=== PATIENT | male | born 1950 | race Caucasian/White ===

== ENCOUNTER → 2020-03-19 11:55 | Outpatient (BNVA) | payer MEDICARE, SELFPAY | PROVIDERS: PCP Internal Medicine; Referring Provider Internal Medicine; Visit Provider Dietitian, Registered | DX: Z76.89 Persons encountering health services in other specified circumstances (principal) ==

== ENCOUNTER 2020-04-16 11:36 | Outpatient (REF) | payer MEDICARE, SELFPAY ==
[2020-04-16 12:38] LABS: MANUAL DIFF FLAG NO
[2020-04-16 12:40] LABS: Basophils Percent Auto 0.4 % (0-2); Eosinophils Absolute Auto 0.2 X10*3/uL (0.0-0.4); Eosinophils Percent Auto 4.5 % (0-4); Hematocrit 41.3 % (42-52); Hemoglobin 13.7 g/dl (14.0-18.0); Imm Gran Abs Auto 0.02 X10*3/uL (0.00-0.03); Imm Gran Pct Auto 0.4 % (0.0-0.4); Lymphocytes Absolute Auto 1.4 X10*3/uL (1.2-4.9); Lymphocytes Percent Auto 26.8 % (20-40); Mean Corpuscular HGB Conc 33.2 g/dl (31.0-36.0); Mean Corpuscular Hemoglobin 32.6 pg (27.0-33.0); Mean Corpuscular Volume 98.3 fL (80-98); Mean Platelet Volume 10.7 fL (9.4-12.4); Monocytes Absolute Auto 0.4 X10*3/uL (0.1-1.2); Monocytes Percent Auto 7.8 % (2-11); Neutrophils Absolute Auto 3.2 X10*3/uL (2.0-8.3); Neutrophils Percent Auto 60.1 % (45-73); Platelet Count 225 X10*3/uL (160-400); Red Cell Distribution Width 12.9 % (11.0-16.0); Retic HGB Equivalent 36.3 pg (30.0-35.0); Reticulocyte Percent 3.5 % (0.5-1.8); Reticulocytes Absolute 0.145 X10*6/uL (0.026-0.095); White Blood Count 5.4 X10*3/uL (4.8-10.8)
[2020-04-16 13:09] LABS: Alanine Aminotransferase 39 U/L (0-40); Albumin Level 4.4 g/dL (3.5-5.0); Alkaline Phosphatase 101 U/L (39-117); Anion Gap 12 (12-20); Aspartate Amino Transferase 28 U/L (5-37); Bilirubin Total 0.7 mg/dL (0.0-1.0); Blood Urea Nitrogen 22 mg/dL (9-16); Calcium 9.2 mg/dL (8.4-10.2); Carbon Dioxide 27 mmol/L (22-29); Chloride 103 mmol/L (96-108); Cholesterol 161 mg/dL; Estimated Glomerular Filt Rate > 60; Glucose Fasting 99 mg/dL (60-99); HDL Cholesterol 50 mg/dL; Iron 140 mcg/dL (45-160); LDL Cholesterol Calculated 89 mg/dl; Percent Iron Saturation 43 % (15-50); Potassium 4.6 mmol/l (3.3-5.1); Sodium 137 mmol/L (135-145); Total Iron Binding Capacity 328 mcg/dL (228-428); Total Protein 6.9 g/dL (6.5-8.0); Triglycerides 111 mg/dL; Unsaturated Iron Binding 188 ug/dL
[2020-04-16 13:31] LABS: Ferritin 166 ng/mL (20-250); T4 Thyroxine 8.8 ug/dL (4.5-12.0); Thyroid Stimulating Hormone 2.04 uIU/mL (0.32-4.0)
[2020-04-16 16:02] LABS: Folate > 20.0 ng/mL (> or = 4.0); Vitamin B12 625 pg/mL (200-900)
== END 2020-04-16 11:37 | disposition home or self-care (01) ==
LOC: HO.LAB 11:36
PROVIDERS: PCP Internal Medicine; Visit Provider Internal Medicine
DX: F31.9 Bipolar disorder, unspecified (principal); I10 Essential (primary) hypertension; K59.00 Constipation, unspecified; E03.9 Hypothyroidism, unspecified; E78.00 Pure hypercholesterolemia, unspecified; K21.9 Gastro-esophageal reflux disease without esophagitis; D50.9 Iron deficiency anemia, unspecified; I25.10 Atherosclerotic heart disease of native coronary artery without angina pectoris
CPT/HCPCS: 36415; 80053; 80061; 82607; 82728; 82746; 83540; 84436; 84443; 85025; 85045

== ENCOUNTER → 2020-05-28 11:26 | Outpatient (BNVA) | payer MEDICARE, SELFPAY | PROVIDERS: PCP Internal Medicine; Visit Provider Dietitian, Registered ==

== ENCOUNTER → 2020-08-27 14:03 | Outpatient (BNVA) | payer MEDICARE, SELFPAY | PROVIDERS: PCP Internal Medicine; Visit Provider Dietitian, Registered | DX: R73.02 Impaired glucose tolerance (oral) (principal) | CPT/HCPCS: 97803 ==

== ENCOUNTER 2020-10-09 12:45 | Outpatient (REF) | payer MEDICARE, SELFPAY ==
[2020-10-09 14:17] LABS: Alanine Aminotransferase 28 U/L (0-40); Albumin Level 4.4 g/dL (3.5-5.0); Alkaline Phosphatase 106 U/L (39-117); Anion Gap 12 (12-20); Aspartate Amino Transferase 23 U/L (5-37); Bilirubin Total 0.8 mg/dL (0.0-1.0); Blood Urea Nitrogen 18 mg/dL (9-16); Calcium 9.4 mg/dL (8.4-10.2); Carbon Dioxide 28 mmol/L (22-29); Chloride 105 mmol/L (96-108); Cholesterol 151 mg/dL; Estimated Glomerular Filt Rate > 60; Glucose Random 101 mg/dL (60-115); HDL Cholesterol 49 mg/dL; LDL Cholesterol Calculated 84 mg/dl; Potassium 4.8 mmol/L (3.3-5.1); Sodium 140 mmol/L (135-145); Total Protein 6.8 g/dL (6.5-8.0); Triglycerides 93 mg/dL
== END 2020-10-09 12:46 | disposition home or self-care (01) ==
LOC: HO.LAB 12:45
PROVIDERS: PCP Internal Medicine; Visit Provider Internal Medicine
DX: E78.00 Pure hypercholesterolemia, unspecified (principal)
CPT/HCPCS: 36415; 80053; 80061

== ENCOUNTER 2021-01-06 13:52 | Outpatient (REF) | payer MEDICARE, SELFPAY ==
[2021-01-06 15:23] LABS: Estimated Average Glucose 97 mg/dL
[2021-01-06 15:27] LABS: Alanine Aminotransferase 30 U/L (0-40); Albumin Level 4.6 g/dL (3.5-5.0); Alkaline Phosphatase 118 U/L (39-117); Anion Gap 13 (12-20); Aspartate Amino Transferase 21 U/L (5-37); Bilirubin Total 1.3 mg/dL (0.0-1.0); Blood Urea Nitrogen 17 mg/dL (9-16); Calcium 9.9 mg/dL (8.4-10.2); Carbon Dioxide 26 mmol/L (22-29); Chloride 106 mmol/L (96-108); Cholesterol 150 mg/dL; Estimated Glomerular Filt Rate > 60; Glucose Random 110 mg/dL (60-115); HDL Cholesterol 60 mg/dL; LDL Cholesterol Calculated 67 mg/dl; Potassium 5.2 mmol/L (3.3-5.1); Sodium 140 mmol/L (135-145); Triglycerides 118 mg/dL
[2021-01-06 15:49] LABS: Free T4 (Free Thyroxine) 1.73 ng/dL (0.71-1.85); Thyroid Stimulating Hormone 0.55 uIU/mL (0.32-4.0)
== END 2021-01-06 13:53 | disposition home or self-care (01) ==
LOC: HO.LAB 13:52
PROVIDERS: PCP Internal Medicine; Visit Provider Internal Medicine
DX: E78.00 Pure hypercholesterolemia, unspecified (principal); E03.9 Hypothyroidism, unspecified; R73.02 Impaired glucose tolerance (oral)
CPT/HCPCS: 36415; 80053; 80061; 83036; 84439; 84443

== ENCOUNTER → 2021-01-27 12:56 | Outpatient (BNVA) | payer MEDICARE, SELFPAY | PROVIDERS: PCP Internal Medicine; Visit Provider Dietitian, Registered | DX: R73.02 Impaired glucose tolerance (oral) (principal) | CPT/HCPCS: 97803 ==

== ENCOUNTER 2021-02-11 12:34 | Outpatient (REF) | payer MEDICARE, SELFPAY ==
--- NOTE | ~2021-02-11 | CT_ITS ---
EXAMINATION: CT CHEST SCREENING CLINICAL INFORMATION: Former smoker. 1-2 pack per day history for 57 years. Quit 14 years ago. COMPARISON: Previous chest CT scans most recent November 2019 TECHNIQUE: Multidetector volumetric CT imaging of the chest is performed without contrast using low dose technique. Additional 2-D coronal and sagittal reformatted images and axial 3-D maximum intensity projection (MIP) images are generated on the CT workstation. This CT examination was performed using dose optimization techniques as appropriate, variously including the following: *Automated exposure control *Adjustment of mA and/or kV according to patient size (this includes techniques or standardized protocols for targeted exams where dose is matched to indication/reason for exam; i.e. extremities or head) *Use of iterative reconstruction technique DLP: 68 mGy-cm FINDINGS: LUNGS: There is mild biapical pleural and parenchymal scarring. There is evidence of mild emphysema. There is a heterogeneous or semisolid left upper lobe nodule that measures 3 mm axial image 109 series 5 that is stable. There is a 2 mm left upper lobe nodule axial image 120 series 5 that is stable. There is a 2 mm calcified right lower lobe nodule axial image 305 series 5 that is stable. There are 2 small adjacent right lower lobe nodules measuring 2 and 3 mm axial image 336 series 5 that are stable. There is a 3 mm left lower lobe nodule axial image 355 series 5 that is stable. There is a 4 mm left lower lobe nodule axial image 387 series 5 that is stable. There are clustered peribronchial nodules in the left lower lobe with tree-in-bud appearance. The largest measures 5 x 8 mm axial image 428 series 5. This appears unchanged from most recent exam, however, is gradually increasing in size compared to older exams, for example measuring 4 x 7 mm axial image 424 series 4 on September 2017 exam and 3 x 4 mm on earliest exam September 2015 axial image 440 series 4. There is a branching tubular-shaped nodule in the right lower lobe. This is difficult to measure but probably represents a dilated inspissated bronchus. This measures maximum 6 x 10 mm axial image 359 series 5, 9 mm in transverse dimension coronal reconstructed image 38 and 5 x 10 mm in longitudinal and AP dimension sagittal reconstructed image 91. This is increased from most recent exam November 2019 and is new from earlier exams. There are additional smaller adjacent more peripheral nodules measuring 2 mm or tree-in-bud appearance. MEDIASTINUM: The heart does not appear enlarged. There is a trace pericardial effusion that is stable. There is mild coronary artery calcification. There are no enlarged hilar or mediastinal lymph nodes. The thoracic aorta is normal in caliber. The visualized thyroid gland is normal. PLEURA: There is no pleural effusion. No pleural mass or thickening. AXILLA: No lymphadenopathy. UPPER ABDOMEN: There is diverticulosis of the colon. OSSEOUS STRUCTURES: There are degenerative changes of the spine. CT/CT lung screening IMPRESSION: Emphysema. Gradually increasing tree-in-bud nodules in the left lower lobe and tubular branching structure in the right lower lobe probably representing bronchial soft tissue opacification. Other small pulmonary nodules are stable. Mild coronary artery calcification. Stable trace pericardial effusion. ASSESSMENT: Lung-RADS category 3: Probably Benign. RECOMMENDATION: Six-month low-dose chest CT followup recommended.
== END 2021-02-11 12:35 | disposition home or self-care (01) ==
LOC: HO.CT 12:34
PROVIDERS: PCP Internal Medicine; Visit Provider Physician Assistant Medical
DX: Z87.891 Personal history of nicotine dependence (principal)
CPT/HCPCS: 71271

== ENCOUNTER 2021-06-03 12:44 | Outpatient (REF) | payer MEDICARE, SELFPAY ==
--- NOTE | ~2021-06-03 | XR_ITS ---
EXAMINATION: XR chest 2V CLINICAL INFORMATION: Reason for Exam J40 - Bronchitis, not specified as acute or chronic COMPARISON: CT chest lung cancer screening 02/11/2021 TECHNIQUE: 2 views of the chest XR/XR chest 2V FINDINGS/IMPRESSION: Mild peribronchial cuffing which could be seen in the setting of small airways inflammation such as asthma or bronchitis. No focal consolidation. No pneumothorax. No pleural effusion. Normal cardiomediastinal silhouette.
[2021-06-03 13:30] LABS: MANUAL DIFF FLAG NO
[2021-06-03 14:20] LABS: Basophils Percent Auto 0.5 % (0-2); Eosinophils Absolute Auto 0.3 X10*3/uL (0.0-0.4); Eosinophils Percent Auto 3.6 % (0-4); Hematocrit 39.4 % (42.0-52.0); Hemoglobin 12.7 g/dl (14.0-18.0); Imm Gran Abs Auto 0.03 X10*3/uL (0.00-0.03); Imm Gran Pct Auto 0.4 % (0.0-0.4); Lymphocytes Absolute Auto 1.6 X10*3/uL (1.2-4.9); Lymphocytes Percent Auto 21.2 % (20-40); Mean Corpuscular HGB Conc 32.2 g/dl (31.0-36.0); Mean Corpuscular Hemoglobin 31.4 pg (27.0-33.0); Mean Corpuscular Volume 97.3 fL (80.0-98.0); Monocytes Absolute Auto 0.6 X10*3/uL (0.1-1.2); Monocytes Percent Auto 7.9 % (2-11); Neutrophils Percent Auto 66.4 % (45-73); Platelet Count 248 X10*3/uL (160-400); Red Blood Count 4.05 X10*6/uL (4.60-5.80); Red Cell Distribution Width 14.2 % (11.0-16.0); White Blood Count 7.5 X10*3/uL (4.8-10.8)
[2021-06-03 14:52] LABS: Alanine Aminotransferase 22 U/L (0-40); Albumin Level 4.1 g/dL (3.5-5.0); Alkaline Phosphatase 128 U/L (39-117); Anion Gap 13 (12-20); Aspartate Amino Transferase 16 U/L (5-37); Bilirubin Total 0.9 mg/dL (0.0-1.0); Blood Urea Nitrogen 15 mg/dL (9-16); Calcium 9.8 mg/dL (8.4-10.2); Carbon Dioxide 28 mmol/L (22-29); Chloride 102 mmol/L (96-108); Cholesterol 118 mg/dL; Estimated Glomerular Filt Rate > 60; Glucose Fasting 102 mg/dL (60-99); HDL Cholesterol 40 mg/dL; LDL Cholesterol Calculated 62 mg/dl; Potassium 4.8 mmol/L (3.3-5.1); Sodium 138 mmol/L (135-145); Total Protein 7.3 g/dL (6.5-8.0); Triglycerides 84 mg/dL
[2021-06-03 15:13] LABS: TSH reflex Free T4 0.62 uIU/mL (0.32-4.0)
== END 2021-06-03 12:45 | disposition home or self-care (01) ==
LOC: HO.XRAY 12:44
PROVIDERS: PCP Internal Medicine; Visit Provider Internal Medicine
DX: J40 Bronchitis, not specified as acute or chronic (principal); E03.9 Hypothyroidism, unspecified; E78.00 Pure hypercholesterolemia, unspecified; I10 Essential (primary) hypertension
CPT/HCPCS: 36415; 71046; 80053; 80061; 84443; 85025

== ENCOUNTER → 2021-07-07 14:41 | Outpatient (BNVA) | payer MEDICARE, SELFPAY | PROVIDERS: PCP Internal Medicine; Visit Provider Internal Medicine | DX: R05.3 Chronic cough (principal); R91.1 Solitary pulmonary nodule; J30.9 Allergic rhinitis, unspecified | CPT/HCPCS: 99202 ==

== ENCOUNTER → 2021-07-27 12:57 | Outpatient (BNVA) | payer OTHER, SELFPAY | PROVIDERS: PCP Internal Medicine; Visit Provider Dietitian, Registered | DX: R73.02 Impaired glucose tolerance (oral) (principal) | CPT/HCPCS: 97803 ==

== ENCOUNTER 2021-08-04 14:01 | Outpatient (REF) | payer OTHER, SELFPAY ==
--- NOTE | 2021-08-04 16:22 | PFT_ITS ---
Forced vital capacity is 87%, FEV1 71%, FEV1/FVC ratio is 60. [id number] 36%, and MVV is 71%. Post bronchodilator therapy, there is a moderate improvement in MHD45-51 and only borderline improvement in FEV1. Total lung capacity 98%. Residual volume 121%, which is slightly increased. Diffusion capacity 42%. CONCLUSION: Moderately severe obstructive airway disorder. Minimal improvement after bronchodilator therapy is noted. Clinical correlation recommended. MD SHARONA Hinkle/MODL / [id number]
== END 2021-08-04 14:02 | disposition home or self-care (01) ==
LOC: HO.RESP 14:01
PROVIDERS: PCP Internal Medicine; Visit Provider Internal Medicine
DX: R05.3 Chronic cough (principal)
CPT/HCPCS: 94060; 94727; 94729

== ENCOUNTER → 2021-08-11 13:49 | Outpatient (BNVA) | payer MEDICARE, SELFPAY | PROVIDERS: PCP Internal Medicine; Visit Provider Internal Medicine | DX: J44.9 Chronic obstructive pulmonary disease, unspecified (principal); R05.3 Chronic cough; J30.9 Allergic rhinitis, unspecified; R91.1 Solitary pulmonary nodule; Z87.891 Personal history of nicotine dependence | CPT/HCPCS: 99212 ==

== ENCOUNTER 2021-10-13 14:34 | Outpatient (REF) | payer OTHER, SELFPAY ==
--- NOTE | ~2021-10-13 | CT_ITS ---
EXAMINATION: CT CHEST SCREENING CLINICAL INFORMATION: Former smoker. Quit 14 years ago. 80 pack-year history. COMPARISON: Previous chest CT scans most recent January 2021 and chest x-ray May 2021. TECHNIQUE: Multidetector volumetric CT imaging of the chest is performed without contrast using low dose technique. Additional 2D coronal and sagittal reformatted images and axial 3D maximum intensity projection (MIP) images are generated on the CT workstation. This CT examination was performed using dose optimization techniques as appropriate, variously including the following: *Automated exposure control *Adjustment of mA and/or kV according to patient size (this includes techniques or standardized protocols for targeted exams where dose is matched to indication/reason for exam; i.e. extremities or head) *Use of iterative reconstruction technique DLP: 76 mGy-cm FINDINGS: LUNGS: There is biapical pleural and parenchymal scarring. There is evidence of emphysema. Small pulmonary nodules or micronodules are stable. Areas of airways disease in both lower lobes with clustered small peribronchial nodules and increased peribronchial attenuation are stable. Areas of mucus plugging in the right lower lobe for example axial image 365 series 5 and in the left lower lobe axial image 433 series 5 appears stable. No tracheal lesion. MEDIASTINUM: Mild coronary artery calcification. The mediastinum is otherwise normal. PLEURA: There is no pleural effusion. No pleural mass or thickening. AXILLA: No lymphadenopathy. UPPER ABDOMEN: Unremarkable. OSSEOUS STRUCTURES: There are degenerative changes of the spine. CT/CT lung screen follow up IMPRESSION: Emphysema. Stable pulmonary nodules and areas of airways disease and plugging in the bilateral lower lobes. ASSESSMENT: Lung-RADS category 2: Benign. RECOMMENDATION: Annual low-dose chest CT followup recommended.
== END 2021-10-13 14:35 | disposition home or self-care (01) ==
LOC: HO.CT 14:34
PROVIDERS: PCP Internal Medicine; Visit Provider Physician Assistant Medical
DX: Z12.2 Encounter for screening for malignant neoplasm of respiratory organs (principal); Z87.891 Personal history of nicotine dependence; J44.9 Chronic obstructive pulmonary disease, unspecified; R05.3 Chronic cough; R91.1 Solitary pulmonary nodule; J30.9 Allergic rhinitis, unspecified
CPT/HCPCS: 71250; 99212

== ENCOUNTER 2021-11-05 14:18 | Outpatient (REF) | payer OTHER, SELFPAY ==
[2021-11-05 14:35] LABS: MANUAL DIFF FLAG NO
[2021-11-05 14:48] LABS: Basophils Percent Auto 0.5 % (0-2); Eosinophils Absolute Auto 0.4 X10*3/uL (0.0-0.4); Eosinophils Percent Auto 6.9 % (0-4); Hematocrit 39.9 % (42.0-52.0); Hemoglobin 13.2 g/dl (14.0-18.0); Imm Gran Abs Auto 0.02 X10*3/uL (0.00-0.03); Imm Gran Pct Auto 0.4 % (0.0-0.4); Immature Retic Fraction 19.1 % (2.3-13.4); Lymphocytes Absolute Auto 1.8 X10*3/uL (1.2-4.9); Lymphocytes Percent Auto 30.8 % (20-40); Mean Corpuscular HGB Conc 33.1 g/dl (31.0-36.0); Mean Corpuscular Hemoglobin 31.9 pg (27.0-33.0); Mean Corpuscular Volume 96.4 fL (80.0-98.0); Mean Platelet Volume 9.9 fL (9.4-12.4); Monocytes Absolute Auto 0.4 X10*3/uL (0.1-1.2); Monocytes Percent Auto 7.6 % (2-11); Neutrophils Absolute Auto 3.1 x10*3/uL (2.0-8.3); Neutrophils Percent Auto 53.8 % (45-73); Platelet Count 191 X10*3/uL (160-400); Red Blood Count 4.14 X10*6/uL (4.60-5.80); Red Cell Distribution Width 14.3 % (11.0-16.0); Retic HGB Equivalent 35.9 pg (30.0-35.0); Reticulocyte Percent 2.7 % (0.5-1.8); Reticulocytes Absolute 0.111 X10*6/uL (0.026-0.095); White Blood Count 5.7 X10*3/uL (4.8-10.8)
[2021-11-05 14:59] LABS: Estimated Average Glucose 108 mg/dL; Hemoglobin A1c % 5.4 %
[2021-11-05 15:12] LABS: Alanine Aminotransferase 38 U/L (0-40); Albumin Level 4.5 g/dL (3.5-5.0); Alkaline Phosphatase 97 U/L (39-117); Anion Gap 11 (12-20); Aspartate Amino Transferase 27 U/L (5-37); Bilirubin Total 0.9 mg/dL (0.0-1.0); Blood Urea Nitrogen 20 mg/dL (9-16); Calcium 9.4 mg/dL (8.4-10.2); Carbon Dioxide 29 mmol/L (22-29); Chloride 105 mmol/L (96-108); Estimated Glomerular Filt Rate > 60; Glucose Random 98 mg/dL (60-115); Iron 109 mcg/dL (45-160); Percent Iron Saturation 34 % (15-50); Sodium 140 mmol/L (135-145); Total Iron Binding Capacity 316 mcg/dL (228-428); Total Protein 7.3 g/dL (6.5-8.0); Unsaturated Iron Binding 207 ug/dL
[2021-11-05 15:37] LABS: Ferritin 296 ng/mL (20-250); Free T4 (Free Thyroxine) 1.13 ng/dL (0.71-1.85); Thyroid Stimulating Hormone 2.86 uIU/mL (0.32-4.0)
[2021-11-05 18:37] LABS: Vitamin B12 527 pg/mL (200-900)
[2021-11-06 10:48] LABS: Folate > 20.0 ng/mL (> or = 4.0)
== END 2021-11-05 14:19 | disposition home or self-care (01) ==
LOC: HO.LAB 14:18
PROVIDERS: PCP Internal Medicine; Visit Provider Internal Medicine
DX: E03.9 Hypothyroidism, unspecified (principal); D64.9 Anemia, unspecified
CPT/HCPCS: 36415; 80053; 82607; 82728; 82746; 83036; 83540; 84439; 84443; 85025; 85045

== ENCOUNTER 2022-03-15 14:24 | Outpatient (REF) | payer OTHER, SELFPAY ==
[2022-03-15 14:38] LABS: MANUAL DIFF FLAG NO
[2022-03-15 15:02] LABS: Basophils Percent Auto 0.3 % (0-2); Eosinophils Absolute Auto 0.2 X10*3/uL (0.0-0.4); Eosinophils Percent Auto 2.6 % (0-4); Hematocrit 42.2 % (42.0-52.0); Hemoglobin 13.5 g/dl (14.0-18.0); Imm Gran Abs Auto 0.03 X10*3/uL (0.00-0.03); Imm Gran Pct Auto 0.4 % (0.0-0.4); Immature Retic Fraction 20.1 % (2.3-13.4); Lymphocytes Absolute Auto 1.8 X10*3/uL (1.2-4.9); Lymphocytes Percent Auto 25.4 % (20-40); Mean Corpuscular Hemoglobin 31.5 pg (27.0-33.0); Mean Corpuscular Volume 98.6 fL (80.0-98.0); Monocytes Absolute Auto 0.5 X10*3/uL (0.1-1.2); Neutrophils Absolute Auto 4.5 x10*3/uL (2.0-8.3); Neutrophils Percent Auto 64.3 % (45-73); Platelet Count 194 X10*3/uL (160-400); Red Blood Count 4.28 X10*6/uL (4.60-5.80); Red Cell Distribution Width 13.7 % (11.0-16.0); Retic HGB Equivalent 36.4 pg (30.0-35.0); Reticulocyte Percent 2.9 % (0.5-1.8); Reticulocytes Absolute 0.125 X10*6/uL (0.026-0.095); White Blood Count 7.1 X10*3/uL (4.8-10.8)
[2022-03-15 15:08] LABS: Estimated Average Glucose 105 mg/dL; Hemoglobin A1c % 5.3 %
[2022-03-15 16:19] LABS: Alanine Aminotransferase 34 U/L (0-40); Albumin Level 4.4 g/dL (3.5-5.0); Alkaline Phosphatase 111 U/L (39-117); Anion Gap 11 (12-20); Aspartate Amino Transferase 22 U/L (5-37); Bilirubin Total 1.1 mg/dL (0.0-1.0); Blood Urea Nitrogen 19 mg/dL (9-16); Calcium 9.5 mg/dL (8.4-10.2); Carbon Dioxide 29 mmol/L (22-29); Chloride 102 mmol/L (96-108); Cholesterol 140 mg/dL; Estimated Glomerular Filt Rate > 60; Ferritin 247 ng/mL (20-250); Free T4 (Free Thyroxine) 1.24 ng/dL (0.71-1.85); Glucose Random 100 mg/dL (60-115); HDL Cholesterol 58 mg/dL; Iron 110 mcg/dL (45-160); LDL Cholesterol Calculated 66 mg/dl; Percent Iron Saturation 38 % (15-50); Potassium 4.8 mmol/L (3.3-5.1); Prostate Specific Antigen Scr 1.61 ng/mL (<0.05-4.0); Sodium 137 mmol/L (135-145); Thyroid Stimulating Hormone 2.24 uIU/mL (0.32-4.0); Total Iron Binding Capacity 287 mcg/dL (228-428); Total Protein 7.5 g/dL (6.5-8.0); Triglycerides 83 mg/dL; Unsaturated Iron Binding 177 ug/dL
[2022-03-15 16:24] LABS: Folate 17.2 ng/mL (> or = 4.0); Vitamin B12 733 pg/mL (200-900)
== END 2022-03-15 14:25 | disposition home or self-care (01) ==
LOC: HO.LAB 14:24
PROVIDERS: PCP Internal Medicine; Visit Provider Internal Medicine
DX: Z12.5 Encounter for screening for malignant neoplasm of prostate (principal); I25.10 Atherosclerotic heart disease of native coronary artery without angina pectoris; E78.00 Pure hypercholesterolemia, unspecified
CPT/HCPCS: 36415; 80053; 80061; 82607; 82728; 82746; 83036; 83540; 84153; 84439; 84443; 85025; 85045

== ENCOUNTER → 2022-04-15 14:09 | Outpatient (BNVA) | payer OTHER, SELFPAY | PROVIDERS: PCP Internal Medicine; Visit Provider Internal Medicine | DX: J44.9 Chronic obstructive pulmonary disease, unspecified (principal); J30.9 Allergic rhinitis, unspecified; R91.1 Solitary pulmonary nodule | CPT/HCPCS: 99212 ==

== ENCOUNTER 2022-09-14 12:09 | Outpatient (REF) | payer OTHER, SELFPAY ==
[2022-09-14 12:25] LABS: MANUAL DIFF FLAG NO
[2022-09-14 13:53] LABS: Basophils Percent Auto 0.3 % (0-2); Eosinophils Absolute Auto 0.3 X10*3/uL (0.0-0.4); Eosinophils Percent Auto 5.2 % (0-4); Hematocrit 39.3 % (42.0-52.0); Hemoglobin 12.6 g/dl (14.0-18.0); Imm Gran Abs Auto 0.01 X10*3/uL (0.00-0.03); Imm Gran Pct Auto 0.2 % (0.0-0.4); Lymphocytes Absolute Auto 1.7 X10*3/uL (1.2-4.9); Lymphocytes Percent Auto 28.5 % (20-40); Mean Corpuscular HGB Conc 32.1 g/dl (31.0-36.0); Mean Corpuscular Hemoglobin 32.4 pg (27.0-33.0); Mean Platelet Volume 10.2 fL (9.4-12.4); Monocytes Absolute Auto 0.5 X10*3/uL (0.1-1.2); Monocytes Percent Auto 7.8 % (2-11); Neutrophils Absolute Auto 3.4 x10*3/uL (2.0-8.3); Platelet Count 195 X10*3/uL (160-400); Red Blood Count 3.89 X10*6/uL (4.60-5.80); Red Cell Distribution Width 13.4 % (11.0-16.0); White Blood Count 5.9 X10*3/uL (4.8-10.8)
[2022-09-14 13:57] LABS: Estimated Average Glucose 97 mg/dL
[2022-09-14 14:37] LABS: Alanine Aminotransferase 26 U/L (0-40); Albumin Level 4.2 g/dL (3.5-5.0); Alkaline Phosphatase 85 U/L (39-117); Anion Gap 13 (12-20); Aspartate Amino Transferase 20 U/L (5-37); Bilirubin Total 0.8 mg/dL (0.0-1.0); Blood Urea Nitrogen 20 mg/dL (9-16); Calcium 9.6 mg/dL (8.4-10.2); Carbon Dioxide 25 mmol/L (22-29); Chloride 106 mmol/L (96-108); Estimated Glomerular Filt Rate > 60; Glucose Random 103 mg/dL (60-115); Potassium 4.6 mmol/L (3.3-5.1); Sodium 139 mmol/L (135-145); Total Protein 6.9 g/dL (6.5-8.0)
[2022-09-14 14:54] LABS: Free T4 (Free Thyroxine) 1.18 ng/dL (0.71-1.85); Thyroid Stimulating Hormone 1.31 uIU/mL (0.32-4.0)
== END 2022-09-14 12:10 | disposition home or self-care (01) ==
LOC: HO.LAB 12:09
PROVIDERS: PCP Internal Medicine; Visit Provider Internal Medicine
DX: R73.02 Impaired glucose tolerance (oral) (principal); E03.9 Hypothyroidism, unspecified
CPT/HCPCS: 36415; 80053; 83036; 84439; 84443; 85025

== ENCOUNTER → 2022-10-26 14:51 | Outpatient (REF) | payer OTHER, SELFPAY | LOC: HO.SL 14:51 | PROVIDERS: PCP Internal Medicine; Visit Provider Internal Medicine | DX: G47.10 Hypersomnia, unspecified (principal); R06.83 Snoring | CPT/HCPCS: 95806 ==

== ENCOUNTER → 2022-10-26 15:05 | Outpatient (BNV) | payer OTHER, SELFPAY | PROVIDERS: PCP Internal Medicine; Visit Provider Internal Medicine | DX: R06.83 Snoring (principal) | CPT/HCPCS: 95806 ==

== ENCOUNTER 2022-11-25 13:43 | Outpatient (AMB) | payer OTHER, SELFPAY ==
[2022-11-25 13:48] VITALS: BP 136/74; PULSE 78; O2SAT 97; BMI 33.1
--- NOTE | 2022-11-25 13:48 | MHC.PC.OV ---
Vital Signs 11/25/22 13:48 Height 5 ft 11 in Weight 237 lb BMI 33.1 BP 136/74 Blood Pressure Location Lt brachial Position Sitting Pulse 78 Pulse Source Pulse Oximeter Pulse Oximetry (%) 97 Oxygen Delivery Method Room Air Intake Visit Reasons: CAD, IGT, hypothyroid Allergies azithromycin [AZITHROMYCIN] Allergy (Intermediate, Verified 11/25/22 13:49) Unknown divalproex sodium [From Depakote] Allergy (Unknown, Verified 11/25/22 13:49) Hair loss erythromycin base [ERYTHROMYCIN BASE] Allergy (Unknown, Verified 11/25/22 13:49) Anaphylaxis lithium Allergy (Unknown, Verified 11/25/22 13:49) Thyroid disorder trazodone Allergy (Unknown, Verified 11/25/22 13:49) priapism atorvastatin Adverse Reaction (Intermediate, Verified 11/25/22 13:49) myalgia Tobacco use date assessed: 07/14/22 Fall risk assessment: No Falls in past year Last assessed Fall Risk: 11/25/22 Dental Screening Dental Screen Date: 11/25/22 Did you have a dental visit in the last 12 months?: No Did you have a dental problem in the last 6 months where you did not have access to dental care?: No Was dental information given to patient?: No HPI CAD, IGT, hypothyroid HPI Details 71-year-old obese male with COPD GERD hypothyroidism bipolar disorder coronary artery disease impaired glucose tolerance hypercholesterolemia hypertension coming in for follow-up. Last seen in September 2022. Patient is here for follow-up concern last time of hypersomnia and a sleep study was requested. Results showing mild so obstructive sleep apnea, conservative measures. August blood work showing anemia but the last complete blood work for cholesterol was done in February 2022. sleep study test doubting aND PAtient has watches arguing with test- advsied sleep med referral for inlab sleep study [facility] Medical History (Updated 11/25/22 @ 14:03 by Phuc Alvarez MD) Anemia Bipolar disorder Bronchitis Cervical spine fracture Chronic cough COPD (chronic obstructive pulmonary disease) COPD exacerbation Coronary artery disease GERD (gastroesophageal reflux disease) Hypercholesterolemia Hypersomnia Hypertension Hypothyroid Impaired glucose tolerance Left lower lobe pulmonary nodule Obesity (BMI 30-39.9) Personal history of nicotine dependence PTSD (post-traumatic stress disorder) Pulmonary nodule Vitamin D deficiency Surgical History H/O nasal polyp History of cervical spinal surgery History of surgery History of surgery on arm History of tooth extraction Family History (Updated 07/14/22 @ 12:37 by Tim Small) Father CAD (coronary artery disease) Myocardial infarction CVD (cardiovascular disease) Mother No problems noted. Brother In good health Sister In good health Maternal Aunt Lung cancer Social History Housing: Apartment Alcohol intake: current Alcohol intake frequency: a few times a week Patient Tobacco Use Status: Former Tobacco user Tobacco use type: Cigarette e-Cigarette/Vaping Use: Never Used Second Hand Smoke Exposure: No service: Yes Current occupational status: retired Cognitive needs: No Hearing needs: No Vision needs: Yes Questionnaire PHQ-9 Over the last 2 weeks, how often have you been bothered by any of the following problems? 1. Little interest or pleasure in doing things: not at all 2. Feeling down, depressed, or hopeless: not at all 3. Trouble falling or staying asleep, or sleeping too much: not at all 4. Feeling tired or having little energy: not at all 5. Poor appetite or overeating: not at all 6. Feeling bad about yourself - or that you are a failure or have let yourself or your family down: not at all 7. Trouble concentrating on things, such as reading the newspaper or watching television: not at all 8. Moving or speaking so slowly that other people could have noticed. Or the opposite - being so fidgety or restless that you have been moving around a lot more than usual: not at all 9. Thoughts that you would be better off or of hurting yourself in some way: not at all Total score: 0 Depression Screening Interpretation: Negative Source: Developed by Drs. Olman Albert, Ruby Garcia, Kunal Mcclendon and colleagues, with an educational jae from [employer]. Thrive Questionnaire Date Thrive assessed: 07/14/22 AUDIT C Alcohol Use Questionnaire (AUDIT-C) 1. How often do you have a drink containing alcohol?: 2-3 times a week 2. How many drinks containing alcohol do you have on a typical day when you are drinking?: 1 or 2 3. How often do you have six or more drinks on one occasion?: Never Total Score: 3 DEEPA-7 AMB Questionnaire DEEPA-7 Date DEEPA - 7 assessed: 07/14/22 Source: Developed by Drs. Olman Albert, Ruby Garcia, Kunal Mcclendon and colleagues, with an educational jae from [employer]. Physical exam (Primary Care) Vital Signs: Last Vital Signs Pulse 78 11/25/22 13:48 BP 136/74 11/25/22 13:48 Pulse Ox 97 11/25/22 13:48 Oxygen Delivery Method Room Air 11/25/22 13:48 BMI result Body Mass Index 33.1 Tobacco/Smoking Status: Tobacco use Status Tobacco use date assessed 07/14/22 11/25/22 13:53 Patient Tobacco Use Status Former Tobacco user 11/25/22 13:53 Tobacco use type Cigarette 11/25/22 13:53 e-Cigarette/Vaping Use Never Used 11/25/22 13:53 PHQ-9: PHQ-9 Score PHQ-9: Total score 0 11/25/22 18:58 Depression Screening Interpretation: Negative Thrive Assessment: Date of Thrive Assessment Date Thrive assessed 07/14/22 11/25/22 13:53 Const General: alert; No acute distress Eyes Conjunctivae: conjunctivae normal Resp Auscultation: clear to auscultation bilaterally Cardio Rate: regular rate Rhythm: regular rhythm GI Inspection: Yes normal to inspection Extrem General: Yes normal to inspection and No edema Assessment and Plan Assessment & Plan (1) Mild obstructive sleep apnea: Comment: October 2022 Code(s): G47.33 - Obstructive sleep apnea (adult) (pediatric) Plan: Conservative measure like sleeping on the side losing weight (2) COPD (chronic obstructive pulmonary disease): Comment: At present he is relatively asymptomatic but his pulmonary function test, has shown mild to moderate degree of COPD with good response to bronchodilator therapy. Currently he is asymptomatic. [place] : Advised to use Advair 250-50 one inh BID only PRN , if the cough or wheezing starts . Does not have to use on regular basis Code(s): J44.9 - Chronic obstructive pulmonary disease, unspecified Plan: Continue with inhaler as needed on Advair controller (3) GERD (gastroesophageal reflux disease): Code(s): K21.9 - Gastro-esophageal reflux disease without esophagitis Qualifiers: Esophagitis presence: without esophagitis Qualified Code(s): K21.9 - Gastro-esophageal reflux disease without esophagitis Plan: GERD planned (4) Obesity (BMI 30-39.9): Code(s): E66.9 - Obesity, unspecified Plan: Diet and exercise (5) Hypothyroid: Code(s): E03.9 - Hypothyroidism, unspecified Qualifiers: Hypothyroidism type: acquired Qualified Code(s): E03.9 - Hypothyroidism, unspecified Plan: Continue with the thyroid medication blood work done February 2022 (6) Bipolar disorder: Code(s): F31.9 - Bipolar disorder, unspecified Qualifiers: Active/Remission status: currently active Current bipolar episode type: mixed Current episode severity: mild Qualified Code(s): F31.61 - Bipolar disorder, current episode mixed, mild Plan: Continue with present medication (7) Coronary artery disease: Comment: Noted on CT scan Code(s): I25.10 - Atherosclerotic heart disease of [place] coronary artery without angina pectoris Qualifiers: Associated angina: without angina Coronary Disease-Associated Artery/Lesion type: [place] artery [place] vs. transplanted heart: [place] heart Qualified Code(s): I25.10 - Atherosclerotic heart disease of [place] coronary artery without angina pectoris Plan: Control the cholesterol, weight, blood pressure (8) Impaired glucose tolerance: Code(s): R73.02 - Impaired glucose tolerance (oral) Plan: Decrease the amount of carbohydrate intake, pasta, bread, rice and potatoes are all sugar and that is aside from all the sweet stuff, remember that fruits are good but they are Sweet also. (9) Hypercholesterolemia: Code(s): E78.00 - Pure hypercholesterolemia, unspecified Plan: Avoid fried foods, chicken skin, eggs, butter margarine, pastries and meat. Be it pork or beef they have a lot of cholesterol LDL goal of less than 70 and triglyceride of less than 150 patient is on Zetia 10 mg once a day and rosuvastatin 40 mg once a day (10) Anemia: Code(s): D64.9 - Anemia, unspecified Plan: Continue to monitor (11) Hypertension: Code(s): I10 - Essential (primary) hypertension Qualifiers: Hypertension type: essential hypertension Qualified Code(s): I10 - Essential (primary) hypertension Plan: Continue blood pressure medication lisinopril 40 mg once a day hydrochlorothiazide 12.5 mg once a day (12) Hypersomnia: Code(s): G47.10 - Hypersomnia, unspecified Orders: Referrals Sleep Medicine Referral G47.10 - Hypersomnia, unspecified Coding Level of Care Code Est Pt Level 4 (56913) Diagnoses Mild obstructive sleep apnea G47.33 COPD (chronic obstructive pulmonary disease) J44.9 GERD (gastroesophageal reflux disease) K21.9 Esophagitis presence: without esophagitis Obesity (BMI 30-39.9) E66.9 Hypothyroid E03.9 Hypothyroidism type: acquired Bipolar disorder F31.61 Active/Remission status: currently active Current bipolar episode type: mixed Current episode severity: mild Coronary artery disease I25.10 Associated angina: without angina Coronary Disease-Associated Artery/Lesion type: [place] artery [place] vs. transplanted heart: [place] heart Impaired glucose tolerance R73.02 Hypercholesterolemia E78.00 Anemia D64.9 Hypertension I10 Hypertension type: essential hypertension Hypersomnia G47.10
== END 2022-11-25 14:26 | disposition home or self-care (01) ==
PROVIDERS: PCP Internal Medicine; Visit Provider Internal Medicine
DX: J44.9 Chronic obstructive pulmonary disease, unspecified (principal); K21.9 Gastro-esophageal reflux disease without esophagitis; E03.9 Hypothyroidism, unspecified; I10 Essential (primary) hypertension; F31.61 Bipolar disorder, current episode mixed, mild; G47.33 Obstructive sleep apnea (adult) (pediatric); E66.9 Obesity, unspecified; I25.10 Atherosclerotic heart disease of native coronary artery without angina pectoris; R73.02 Impaired glucose tolerance (oral); E78.00 Pure hypercholesterolemia, unspecified; D64.9 Anemia, unspecified; G47.10 Hypersomnia, unspecified
CPT/HCPCS: 99214

== ENCOUNTER 2022-12-31 15:10 | Outpatient (REF) | payer OTHER, SELFPAY ==
--- NOTE | ~2022-12-31 | CT_ITS ---
EXAMINATION: CT CHEST SCREENING CLINICAL INFORMATION: Former smoker. 40 pack year history. Quit 14 years ago. COMPARISON: Previous chest CT scans most recent September 2021 TECHNIQUE: Multidetector volumetric CT imaging of the chest is performed without contrast using low dose technique. Additional 2D coronal and sagittal reformatted images and axial 3D maximum intensity projection (MIP) images are generated on the CT workstation. This CT examination was performed using dose optimization techniques as appropriate, variously including the following: *Automated exposure control *Adjustment of mA and/or kV according to patient size (this includes techniques or standardized protocols for targeted exams where dose is matched to indication/reason for exam; i.e. extremities or head) *Use of iterative reconstruction technique DLP: 70 mGy-cm FINDINGS: LUNGS: There is mild emphysema. There are new clustered posterior segment right upper lobe nodules. Largest nodule measures 4 mm axial image 285 series 5. There are new clustered right middle lobe nodules, largest measuring 4 mm axial image 389 series 5. There are new 2 and 4 mm right lower lobe nodules axial image 365 series 5. There are 3 mm left lower lobe nodules axial image 378 and 411 series 5 that are stable. Areas of mucus plugging in the right lower lobe axial image 390 series 5 and left lower lobe axial image 446 series 5 are stable. There is a new 4 x 12 mm peripheral or subpleural lingular nodule adjacent to the fissure axial image 444 series 5 probably representing mucous plugging. MEDIASTINUM: Normal heart size. Trace pericardial effusion. Mild to moderate coronary artery calcification. No enlarged hilar or mediastinal lymph nodes. CORONARY ARTERY CALCIFICATION: Mild to moderate PLEURA: There is no pleural effusion. No pleural mass or thickening. AXILLA: No lymphadenopathy. UPPER ABDOMEN: Unremarkable OSSEOUS STRUCTURES: Degenerative changes of the spine. CT/CT lung screening IMPRESSION: Mild emphysema. New small pulmonary nodules, majority of which are clustered with tree-in-bud appearance favoring airways disease or infectious/inflammatory process. Separate isolated new small less than 4 mm right lower lobe nodule New area of mucus plugging in the lingula. Stable mucous plugging in the bilateral lower lobes. ASSESSMENT: Lung-RADS category 2: Benign RECOMMENDATION: Annual low-dose chest CT follow-up recommended
== END 2022-12-31 15:11 | disposition home or self-care (01) ==
LOC: HO.CT 15:10
PROVIDERS: PCP Internal Medicine; Visit Provider Physician Assistant Medical
DX: Z12.2 Encounter for screening for malignant neoplasm of respiratory organs (principal); Z87.891 Personal history of nicotine dependence
CPT/HCPCS: 71271

== ENCOUNTER 2023-01-13 15:03 | Outpatient (AMB) | payer OTHER, SELFPAY ==
--- NOTE | 2023-01-13 15:20 | MHC.OFFVIS ---
Intake Vital Signs 01/13/23 15:21 Height 5 ft 11 in Weight 237 lb BMI 33.1 BP 130/70 Blood Pressure Location Rt brachial Position Sitting Intake Visit Reasons: INP-Hypersomnia - Confirmed Intake Note: Patient presents for hypersomnia. Patient states for a long time now I have been waking up gasping for air and my heart is pounding also have nightmares as if I'm drowning. Allergies azithromycin [AZITHROMYCIN] Allergy (Intermediate, Verified 01/13/23 15:24) Unknown divalproex sodium [From Depakote] Allergy (Unknown, Verified 01/13/23 15:24) Hair loss erythromycin base [ERYTHROMYCIN BASE] Allergy (Unknown, Verified 01/13/23 15:24) Anaphylaxis lithium Allergy (Unknown, Verified 01/13/23 15:24) Thyroid disorder trazodone Allergy (Unknown, Verified 01/13/23 15:24) priapism atorvastatin Adverse Reaction (Intermediate, Verified 01/13/23 15:24) myalgia HPI HPI Comments History of Present Illness Details 72 y/o male patient presents for new in-person visit to manage sleep apnea. Pt reports he had a home sleep study in Oct, 2022. The home sleep study result was significant for moderate degree of sleep apnea. The AHI was 14/hr and oxygen david was 74%. Total duration of O2 sat <88% was 23 min. Pt reports he has PTSD, having nightmares and, gasping arousals. He also monitors his sleep with his smart watch, and it alarms that his O2 sat is low 70s. Pt reports frequent arousals, non refreshing sleep and daytime sleepiness. Sleep questionnaire: Have you ever been diagnosed with a sleep disorder? Yes, ADITYA. Have you ever had a sleep study in the past? Yes, had a home sleep study done in Oct, 2022. Have you ever been treated for a sleep disorder? No. Do you take medications for a sleep disorder? Benadryl, Xanax Do you snore? Yes. Do you wake up gasping at night? Yes. Do you have episodes of apneas? Yes. If yes, are they witnessed? Yes. Do you have episodes of nocturnal chest pain or dyspnea? Yes. Do you have difficulty initiating sleep? Yes. Do you have difficulty maintaining sleep? Yes. Do you wake up tired? Yes. Do you have headaches upon awakening? Yes. Do you wake up with dry mouth or throat? Yes. Do you have GERD? Yes. Do you have nocturia? Yes. Do you have nocturnal leg cramps? Yes, calci um helps. Do you have symptoms of restless legs? No. Do you act out your dreams? No. Sleep hygiene questionnaire: What is your usual sleep routine? Usual bedtime is at 12 am; Usual wake up time is at 8-9 am. Do you take naps? Sometimes after lunch for an hour. Is your sleep environment cool, dark, and quiet? Yes. Do you exercise? Walk his dog every day. Do you take caffeine or other stimulants? Yes, coffee and tea in the morning. Do you use electronics in bed? Watches TV. What is your work schedule? N/A. Hypersomnolence questionnaire: Do you have daytime tiredness or fatigue? Yes. Do you easily fall asleep when inactive? Yes. Have you ever had episodes of sudden weakness? No. Have you ever had episodes of sudden weakness associated with strong emotions? No. [facility] Medical History (Updated 11/25/22 @ 14:03 by Phuc Alvarez MD) Hypersomnia COPD exacerbation COPD (chronic obstructive pulmonary disease) Chronic cough Left lower lobe pulmonary nodule Bronchitis Personal history of nicotine dependence Cervical spine fracture GERD (gastroesophageal reflux disease) Pulmonary nodule Vitamin D deficiency Obesity (BMI 30-39.9) Hypothyroid Bipolar disorder PTSD (post-traumatic stress disorder) Coronary artery disease Impaired glucose tolerance Hypercholesterolemia Anemia Hypertension Surgical History History of cervical spinal surgery History of surgery H/O nasal polyp History of surgery on arm History of tooth extraction Family History Father CAD (coronary artery disease) Myocardial infarction CVD (cardiovascular disease) Mother No problems noted. Brother In good health Sister In good health Maternal Aunt Lung cancer Social History Housing: Apartment Alcohol intake: current Alcohol intake frequency: a few times a week Patient Tobacco Use Status: Former Tobacco user Tobacco use type: Cigarette e-Cigarette/Vaping Use: Never Used Second Hand Smoke Exposure: No service: Yes Current occupational status: retired Cognitive needs: No Hearing needs: No Vision needs: Yes Review of Systems Const All systems reviewed & are unremarkable except as noted in HPI and below ENT Reports Normal hearing present Neuro Reports Normal hearing present Physical Exam Vital Signs: Last Vital Signs BP 130/70 01/13/23 15:21 BMI result Body Mass Index 33.1 Const General: cooperative Nutritional Appearance: obese Orientation/consciousness: patient oriented x3 Neck Neck: Yes full ROM and Yes supple Resp Effort & Inspection: normal respiratory effort and able to speak in complete sentences Neuro General: patient oriented x3 and moves all extremities Cranial nerves: Yes Bilaterally intact EOM present, Yes Normal facial strength present, Yes Midline tongue present, Yes Symmetric palate elevation present, Yes Normal hearing present, Yes Ability to bilaterally rotate head present and Yes Ability to bilaterally elevate shoulders present Cognition (Neuro): normal cognition Psych Appearance: grossly normal Mental Status: mental status grossly normal Speech and movement: Normal speech and movement present Affect: normal affect Attitude: cooperative Assessment & Plan Assessment & Plan (1) Hypersomnia: Code(s): G47.10 - Hypersomnia, unspecified (2) Mild obstructive sleep apnea: Comment: October 2022 Code(s): G47.33 - Obstructive sleep apnea (adult) (pediatric) Plan Advised patient to start APAP [id number]. Sleep hygiene education provided, limit electronic use before bedtime, and caffeine intake in the evening. Advised patient to try melatonin 3 mg qHS to help him staying sleep. He may try magnesium, calcium and vitmain D supplement. Medications: New melatonin 3 mg PO BEDTIME 30 days PRN 30 tabs 3RF sleep melatonin 3 mg PO BEDTIME 30 days PRN 30 tabs 3RF sleep Coding Level of Care Code New Pt Level 3 (51269) Diagnoses Hypersomnia G47.10 Mild obstructive sleep apnea G47.33
[2023-01-13 15:21] VITALS: BP 130/70; BMI 33.1
== END 2023-01-13 15:54 | disposition home or self-care (01) ==
PROVIDERS: PCP Internal Medicine; Visit Provider Nurse Practitioner Family
DX: G47.10 Hypersomnia, unspecified (principal); G47.33 Obstructive sleep apnea (adult) (pediatric)
CPT/HCPCS: 99203

== ENCOUNTER → 2023-01-13 15:03 | Outpatient (BNVA) | payer OTHER, SELFPAY | PROVIDERS: PCP Internal Medicine; Visit Provider Nurse Practitioner Family ==

== ENCOUNTER 2023-03-15 13:44 | Outpatient (AMB) | payer OTHER, SELFPAY ==
[2023-03-15 13:46] VITALS: BP 140/50; PULSE 73; O2SAT 96; BMI 33.1
--- NOTE | 2023-03-15 13:46 | A.OFFPC_ITS ---
Vital Signs 03/15/23 13:46 Height 5 ft 11 in Weight 237 lb 6 oz BMI 33.1 BP 140/50 H Blood Pressure Location Lt brachial Position Sitting Pulse 73 Pulse Source Pulse Oximeter Pulse Oximetry (%) 96 Oxygen Delivery Method Room Air Intake Visit Reasons: COPD, CAD Home Based Assistant Required: No Accompanied by: Self / Same As Patient Allergies azithromycin [AZITHROMYCIN] Allergy (Intermediate, Verified 03/15/23 13:50) Unknown divalproex sodium [From Depakote] Allergy (Unknown, Verified 03/15/23 13:50) Hair loss erythromycin base [ERYTHROMYCIN BASE] Allergy (Unknown, Verified 03/15/23 13:50) Anaphylaxis lithium Allergy (Unknown, Verified 03/15/23 13:50) Thyroid disorder trazodone Allergy (Unknown, Verified 03/15/23 13:50) priapism atorvastatin Adverse Reaction (Intermediate, Verified 03/15/23 13:50) myalgia lisinopril Adverse Reaction (Intermediate, Unverified 03/15/23 14:09) Cough Medication List - Last Reconciled 03/15/23 by Phuc Alvarez MD acetaminophen 500 mg PO Q6H PRN acyclovir 400 mg PO TID 7 days albuterol sulfate 90 mcg/actuation (ProAir HFA) 2 puffs inhalation QID PRN alprazolam (Xanax) 0.25 mg PO BEDTIME PRN aspirin 81 mg PO DAILY 90 days [BED WEDGE As directed] cetirizine 10 mg PO DAILY cholecalciferol (vitamin D3) 50 mcg PO DAILY diphenhydramine HCl (Banophen) 50 mg PO BEDTIME docusate sodium 200 mg (2 x 100 mg) PO TID ezetimibe 10 mg PO DAILY ferrous sulfate (FeroSul) 325 mg PO BID fluticasone propion-salmeterol 250-50 mcg/dose (Advair Diskus) 1 inh inhalation BID 90 days fluticasone propionate 50 mcg/actuation 2 sprays intranasal DAILY hydrochlorothiazide 12.5 mg PO QAM levothyroxine 125 mcg PO QAM losartan 50 mg PO DAILY melatonin 3 mg PO BEDTIME PRN 30 days [id number] 1 tab PO DAILY omeprazole 20 mg PO DAILY psyllium husk (Reguloid (psyllium husk)) 0.8 grams (2 x 0.4 gram) PO QID PRN 30 days rosuvastatin 40 mg PO DAILY 90 days sennosides-docusate sodium 8.6-50 mg (Senna Plus) 4 tabs PO BEDTIME Shower Chair As directed tramadol 50 mg PO TID PRN 90 days Tobacco use date assessed: 07/14/22 Fall risk assessment: No Falls in past year Last assessed Fall Risk: 03/15/23 Dental Screening Dental Screen Date: 03/15/23 Did you have a dental visit in the last 12 months?: Yes Did you have a dental problem in the last 6 months where you did not have access to dental care?: No Was dental information given to patient?: Patient has dentist HPI COPD, CAD HPI Details 72-year-old obese male with a history of COPD GERD hypothyroidism bipolar disorder coronary artery disease with impaired glucose tolerance hypercholesterolemia chronic anemia hypertension last seen in November 2022.. With hypersomnia patient was referred to the neurologist. Sleep study October 2022 showing moderate degree of sleep apnea AHI of 14 patient was advised APAP 5-20 cm H2O advised to take melatonin. With a history of smoking patient had a CT scan done December 2022 showing mild emphysema with new small pulmonary nodules and a few right lower lobe 4 mm nodule annual low-dose CT to be done.. Patient was complaining of cough and the pulmonary is brought up to him regarding the lisinopril and was advised to try to change it N/C. Patient states has been having this chronic cough for long time. [facility] Medical History (Updated 03/15/23 @ 14:10 by Phuc Alvarez MD) Hypersomnia COPD exacerbation COPD (chronic obstructive pulmonary disease) Chronic cough Left lower lobe pulmonary nodule Bronchitis Personal history of nicotine dependence Cervical spine fracture GERD (gastroesophageal reflux disease) Pulmonary nodule Vitamin D deficiency Obesity (BMI 30-39.9) Hypothyroid Bipolar disorder PTSD (post-traumatic stress disorder) Coronary artery disease Impaired glucose tolerance Hypercholesterolemia Anemia Hypertension Surgical History History of cervical spinal surgery History of surgery H/O nasal polyp History of surgery on arm History of tooth extraction Family History Father CAD (coronary artery disease) Myocardial infarction CVD (cardiovascular disease) Mother No problems noted. Brother In good health Sister In good health Maternal Aunt Lung cancer Social History Housing: Apartment Alcohol intake: current Alcohol intake frequency: a few times a week Patient Tobacco Use Status: Former Tobacco user Tobacco use type: Cigarette e-Cigarette/Vaping Use: Never Used Second Hand Smoke Exposure: No service: Yes Current occupational status: retired Cognitive needs: No Hearing needs: No Vision needs: Yes Questionnaire Thrive Questionnaire Date Thrive assessed: 07/14/22 DEEPA-7 AMB Questionnaire DEEPA-7 Date DEEPA - 7 assessed: 07/14/22 Source: Developed by Drs. Olman Albert, Ruby Garcia, Kunal Mcclendon and colleagues, with an educational jae from [employer]. Physical exam (Primary Care) Vital Signs: Last Vital Signs Pulse 73 03/15/23 13:46 BP 140/50 H 03/15/23 13:46 Pulse Ox 96 03/15/23 13:46 Oxygen Delivery Method Room Air 03/15/23 13:46 BMI result Body Mass Index 33.1 Tobacco/Smoking Status: Tobacco use Status Tobacco use date assessed 07/14/22 03/15/23 13:53 Patient Tobacco Use Status Former Tobacco user 03/15/23 13:53 Tobacco use type Cigarette 03/15/23 13:53 e-Cigarette/Vaping Use Never Used 03/15/23 13:53 Thrive Assessment: Date of Thrive Assessment Date Thrive assessed 07/14/22 03/15/23 13:53 Const General: alert; No acute distress Eyes Conjunctivae: conjunctivae normal Resp Auscultation: clear to auscultation bilaterally Cardio Rate: regular rate Rhythm: regular rhythm GI Inspection: Yes normal to inspection Extrem General: Yes normal to inspection and No edema Assessment and Plan Assessment & Plan (1) Hypertension: Code(s): I10 - Essential (primary) hypertension Qualifiers: Hypertension type: essential hypertension Qualified Code(s): I10 - Essential (primary) hypertension Plan: Continue with blood pressure medication. Decrease salt intake and exercise presently on hydrochlorothiazide 12.5 mg lisinopril 40 mg once a day (2) Hypercholesterolemia: Code(s): E78.00 - Pure hypercholesterolemia, unspecified Plan: Avoid fried foods, chicken skin, eggs, butter margarine, pastries and meat. Be it pork or beef they have a lot of cholesterol LDL goal of less than 100 preferably less than 70 patient on rosuvastatin 40 mg once a day patient is taking rosuvastatin 40 mg once a day and Zetia (3) Impaired glucose tolerance: Code(s): R73.02 - Impaired glucose tolerance (oral) Plan: Decrease the amount of carbohydrate intake, pasta, bread, rice and potatoes are all sugar and that is aside from all the sweet stuff, remember that fruits are good but they are Sweet also. (4) Coronary artery disease: Comment: Noted on CT scan Code(s): I25.10 - Atherosclerotic heart disease of [place] coronary artery without angina pectoris Qualifiers: Coronary Disease-Associated Artery/Lesion type: [place] artery [place] vs. transplanted heart: [place] heart Associated angina: without angina Qualified Code(s): I25.10 - Atherosclerotic heart disease of [place] coronary artery without angina pectoris Plan: Control the cholesterol, weight, blood pressure (5) Hypothyroid: Code(s): E03.9 - Hypothyroidism, unspecified Qualifiers: Hypothyroidism type: acquired Qualified Code(s): E03.9 - Hypothyroidism, unspecified Plan: Continue with thyroid medication (6) Bipolar disorder: Code(s): F31.9 - Bipolar disorder, unspecified Qualifiers: Active/Remission status: currently active Current bipolar episode type: mixed Current episode severity: mild Qualified Code(s): F31.61 - Bipolar disorder, current episode mixed, mild Plan: Continue with therapy (7) Obesity (BMI 30-39.9): Code(s): E66.9 - Obesity, unspecified Plan: Diet and exercise (8) GERD (gastroesophageal reflux disease): Code(s): K21.9 - Gastro-esophageal reflux disease without esophagitis Qualifiers: Esophagitis presence: without esophagitis Qualified Code(s): K21.9 - Gastro-esophageal reflux disease without esophagitis Plan: Avoid the foods that causes that usually spicy foods, tomato products, juices, coffee, soda and foods that your sensitive to. After eating do not lie down, allow 3-4 hours before in lie down. And keep the head of bed above 30 degrees to avoid the acid from going up. (9) COPD (chronic obstructive pulmonary disease): Comment: At present he is relatively asymptomatic but his pulmonary function test, has shown mild to moderate degree of COPD with good response to bronchodilator therapy. Currently he is asymptomatic. [place] : Advised to use Advair 250-50 one inh BID only PRN , if the cough or wheezing starts . Does not have to use on regular basis Code(s): J44.9 - Chronic obstructive pulmonary disease, unspecified Plan: Continue with inhaler as needed (10) Left lower lobe pulmonary nodule: Comment: February 2021 6 months. 09/2021 SMALL PULMONARY NODULES, STABLE, BENIGN CATEGORY 2. HE IS ACTIVE IN ANNUAL LUNG SCREENING PROGRAM. Code(s): R91.1 - Solitary pulmonary nodule Plan: Yearly CT scan/annual (11) Mild obstructive sleep apnea: Comment: October 2022 Code(s): G47.33 - Obstructive sleep apnea (adult) (pediatric) Plan: Patient has seen sleep management and prescribed CPAP (12) Cataract: Comment: L > R Dr. Ye Code(s): H26.9 - Unspecified cataract Plan: will continue to monitor Medications: New losartan 50 mg PO DAILY 30 tabs 3RF I10 - Essential (primary) hypertension Discontinued lisinopril Discontinued Reason: Doctor's Order 40 mg PO DAILY 90 tabs 3RF Coding Level of Care Code Est Pt Level 4 (16359) Diagnoses Essential hypertension I10 Hypertension type: essential hypertension Hypercholesterolemia E78.00 Impaired glucose tolerance R73.02 Coronary artery disease involving [place] coronary artery of [place] heart without angina pectoris I25.10 Coronary Disease-Associated Artery/Lesion type: [place] artery [place] vs. transplanted heart: [place] heart Associated angina: without angina Acquired hypothyroidism E03.9 Hypothyroidism type: acquired Bipolar disorder, current episode mixed, mild F31.61 Active/Remission status: currently active Current bipolar episode type: mixed Current episode severity: mild Obesity (BMI 30-39.9) E66.9 Gastroesophageal reflux disease without esophagitis K21.9 Esophagitis presence: without esophagitis COPD (chronic obstructive pulmonary disease) J44.9 Left lower lobe pulmonary nodule R91.1 Mild obstructive sleep apnea G47.33 Cataract H26.9
== END 2023-03-15 14:20 | disposition home or self-care (01) ==
PROVIDERS: PCP Internal Medicine; Visit Provider Internal Medicine
DX: I10 Essential (primary) hypertension (principal); F31.61 Bipolar disorder, current episode mixed, mild; J44.9 Chronic obstructive pulmonary disease, unspecified; E78.00 Pure hypercholesterolemia, unspecified; R73.02 Impaired glucose tolerance (oral); I25.10 Atherosclerotic heart disease of native coronary artery without angina pectoris; E03.9 Hypothyroidism, unspecified; E66.9 Obesity, unspecified; K21.9 Gastro-esophageal reflux disease without esophagitis; R91.1 Solitary pulmonary nodule; G47.33 Obstructive sleep apnea (adult) (pediatric); H26.9 Unspecified cataract
CPT/HCPCS: 99214

== ENCOUNTER 2023-06-23 14:03 | Outpatient (AMB) | payer OTHER, SELFPAY ==
[2023-06-23 14:05] VITALS: BP 144/68; PULSE 71; O2SAT 95; BMI 32.8
--- NOTE | 2023-06-23 14:05 | MHC.PC.OV ---
Vital Signs 06/23/23 14:05 Height 5 ft 11 in Weight 235 lb 0.6 oz BMI 32.8 BP 144/68 H Blood Pressure Location Lt brachial Position Sitting Pulse 71 Pulse Source Pulse Oximeter Temp Source Skin Pulse Oximetry (%) 95 Oxygen Delivery Method Room Air Intake Visit Reasons: 3 MONTH F/U Intake Note: Patient is here to follow up on 3 months Cheese Cutter Required: No Allergies azithromycin [AZITHROMYCIN] Allergy (Intermediate, Verified 06/23/23 14:05) Unknown divalproex sodium [From Depakote] Allergy (Unknown, Verified 06/23/23 14:05) Hair loss erythromycin base [ERYTHROMYCIN BASE] Allergy (Unknown, Verified 06/23/23 14:05) Anaphylaxis lithium Allergy (Unknown, Verified 06/23/23 14:05) Thyroid disorder trazodone Allergy (Unknown, Verified 06/23/23 14:05) priapism atorvastatin Adverse Reaction (Intermediate, Verified 06/23/23 14:05) myalgia lisinopril Adverse Reaction (Intermediate, Verified 06/23/23 14:05) Cough Medication List - Last Reconciled 06/23/23 by Phuc Alvarez MD acetaminophen 500 mg PO Q6H PRN acyclovir 400 mg PO TID 7 days albuterol sulfate 90 mcg/actuation (ProAir HFA) 2 puffs inhalation QID PRN alprazolam (Xanax) 0.25 mg PO BEDTIME PRN aspirin 81 mg PO DAILY 90 days [BED WEDGE As directed] cetirizine 10 mg PO DAILY cholecalciferol (vitamin D3) 50 mcg PO DAILY diphenhydramine HCl (Banophen) 50 mg PO BEDTIME docusate sodium 200 mg (2 x 100 mg) PO TID ezetimibe 10 mg PO DAILY ferrous sulfate (FeroSul) 325 mg PO BID fluticasone propion-salmeterol 250-50 mcg/dose (Advair Diskus) 1 inh inhalation BID 90 days fluticasone propionate 50 mcg/actuation 2 sprays intranasal DAILY hydrochlorothiazide 12.5 mg PO QAM levothyroxine 125 mcg PO QAM lidocaine 4% (Salonpas (lidocaine)) 1 patch topical DAILY PRN losartan 50 mg PO DAILY melatonin 3 mg PO BEDTIME PRN 30 days methyl salicylate-menthol 10-3 % (Salonpas (methyl salicylate-menthol)) 1 patch topical .QD PRN kwvmdyuqqqwq-dkzcuerw-npfhko 1 tab PO DAILY omeprazole 20 mg PO DAILY psyllium husk (Reguloid (psyllium husk)) 0.8 grams (2 x 0.4 gram) PO QID PRN 30 days rosuvastatin 40 mg PO DAILY 90 days sennosides-docusate sodium 8.6-50 mg (Senna Plus) 4 tabs PO BEDTIME Shower Chair As directed tramadol 50 mg PO TID PRN 90 days Tobacco use date assessed: 06/23/23 Fall risk assessment: No Falls in past year Last assessed Fall Risk: 06/23/23 Dental Screening Dental Screen Date: 06/23/23 HPI 3 MONTH F/U HPI Details 72-year-old obese male with hypertension hypercholesterolemia impaired glucose tolerance coronary artery disease hypothyroidism bipolar disorder GERD COPD coming in for follow-up. Last seen in February 2023. Patient's last colonoscopy was in September 2013 in due this year. taken off lisinopril due to throat tickle- this is better. BP at home is good. 1 month ago bending had back pain and asking for salonpas with lidocaine PFSH Medical History (Updated 06/23/23 @ 14:53 by Phuc Alvarez MD) COPD exacerbation Hypersomnia COPD (chronic obstructive pulmonary disease) Chronic cough Left lower lobe pulmonary nodule Bronchitis Personal history of nicotine dependence Cervical spine fracture GERD (gastroesophageal reflux disease) Pulmonary nodule Vitamin D deficiency Obesity (BMI 30-39.9) Hypothyroid Bipolar disorder PTSD (post-traumatic stress disorder) Coronary artery disease Impaired glucose tolerance Hypercholesterolemia Anemia Hypertension Surgical History History of cervical spinal surgery History of surgery H/O nasal polyp History of surgery on arm History of tooth extraction Family History Father CAD (coronary artery disease) Myocardial infarction CVD (cardiovascular disease) Mother No problems noted. Brother In good health Sister In good health Maternal Aunt Lung cancer Social History Housing: Apartment Alcohol intake: current Alcohol intake frequency: a few times a week Patient Tobacco Use Status: Former Tobacco user Tobacco use type: Cigarette e-Cigarette/Vaping Use: Never Used Second Hand Smoke Exposure: No service: Yes Current occupational status: retired Cognitive needs: No Hearing needs: No Vision needs: Yes Questionnaire PHQ-9 Over the last 2 weeks, how often have you been bothered by any of the following problems? 1. Little interest or pleasure in doing things: not at all 2. Feeling down, depressed, or hopeless: not at all 3. Trouble falling or staying asleep, or sleeping too much: not at all 4. Feeling tired or having little energy: not at all 5. Poor appetite or overeating: not at all 6. Feeling bad about yourself - or that you are a failure or have let yourself or your family down: not at all 7. Trouble concentrating on things, such as reading the newspaper or watching television: not at all 8. Moving or speaking so slowly that other people could have noticed. Or the opposite - being so fidgety or restless that you have been moving around a lot more than usual: not at all 9. Thoughts that you would be better off or of hurting yourself in some way: not at all Total score: 0 Depression Screening Interpretation: Negative Depression Screening Done: Yes Source: Developed by Drs. Olman Albert, Kunal Guevara and colleagues, with an educational jae from [employer]. Thrive Questionnaire Date Thrive assessed: 06/23/23 AUDIT C Alcohol Use Questionnaire (AUDIT-C) 1. How often do you have a drink containing alcohol?: 2-3 times a week 2. How many drinks containing alcohol do you have on a typical day when you are drinking?: 1 or 2 3. How often do you have six or more drinks on one occasion?: Never Total Score: 3 DEEPA-7 AMB Questionnaire DEEPA-7 Date DEEPA - 7 assessed: 06/23/23 Source: Developed by Drs. Olman Albert, Kunal Guevara and colleagues, with an educational jae from [employer]. Physical exam (Primary Care) Vital Signs: Last Vital Signs Pulse 71 06/23/23 14:05 BP 144/68 H 06/23/23 14:05 Pulse Ox 95 06/23/23 14:05 Oxygen Delivery Method Room Air 06/23/23 14:05 BMI result Body Mass Index 32.8 Tobacco/Smoking Status: Tobacco use Status Tobacco use date assessed 06/23/23 06/23/23 14:06 Patient Tobacco Use Status Former Tobacco user 06/23/23 14:06 Tobacco use type Cigarette 06/23/23 14:06 e-Cigarette/Vaping Use Never Used 06/23/23 14:06 PHQ-9: PHQ-9 Score PHQ-9: Total score 0 06/23/23 14:06 Depression Screening Interpretation: Negative Thrive Assessment: Date of Thrive Assessment Date Thrive assessed 06/23/23 06/23/23 14:06 Const General: alert; No acute distress Eyes Conjunctivae: conjunctivae normal Resp Auscultation: clear to auscultation bilaterally Cardio Rate: regular rate Rhythm: regular rhythm GI Inspection: Yes normal to inspection Extrem General: Yes normal to inspection and No edema Assessment and Plan Assessment & Plan (1) Hypertension: Code(s): I10 - Essential (primary) hypertension Qualifiers: Hypertension type: essential hypertension Qualified Code(s): I10 - Essential (primary) hypertension Plan: Continue with blood pressure medication. Decrease salt intake and exercise on hydrochlorothiazide, losartan (2) Hypercholesterolemia: Code(s): E78.00 - Pure hypercholesterolemia, unspecified Plan: Avoid fried foods, chicken skin, eggs, butter margarine, pastries and meat. Be it pork or beef they have a lot of cholesterol LDL goal of less than 70 and triglyceride of less than 150 on rosuvastatin 40 mg once a day August 2022 last blood work (3) Anemia: Code(s): D64.9 - Anemia, unspecified Plan: Continue to monitor anemia of chronic disease (4) Impaired glucose tolerance: Code(s): R73.02 - Impaired glucose tolerance (oral) Plan: Decrease the amount of carbohydrate intake, pasta, bread, rice and potatoes are all sugar and that is aside from all the sweet stuff, remember that fruits are good but they are Sweet also. (5) Coronary artery disease: Comment: Noted on CT scan Code(s): I25.10 - Atherosclerotic heart disease of [place] coronary artery without angina pectoris Qualifiers: Coronary Disease-Associated Artery/Lesion type: [place] artery [place] vs. transplanted heart: [place] heart Associated angina: without angina Qualified Code(s): I25.10 - Atherosclerotic heart disease of [place] coronary artery without angina pectoris Plan: Control the cholesterol, weight, blood pressure, diabetes continue with aspirin 81 mg once a day (6) Hypothyroid: Code(s): E03.9 - Hypothyroidism, unspecified Qualifiers: Hypothyroidism type: acquired Qualified Code(s): E03.9 - Hypothyroidism, unspecified Plan: Continue with thyroid medication and will require blood work in 3 months (7) Bipolar disorder: Code(s): F31.9 - Bipolar disorder, unspecified Qualifiers: Active/Remission status: currently active Current bipolar episode type: mixed Current episode severity: mild Qualified Code(s): F31.61 - Bipolar disorder, current episode mixed, mild Plan: Continue with present medication (8) Obesity (BMI 30-39.9): Code(s): E66.9 - Obesity, unspecified Plan: Diet and exercise (9) GERD (gastroesophageal reflux disease): Code(s): K21.9 - Gastro-esophageal reflux disease without esophagitis Qualifiers: Esophagitis presence: without esophagitis Qualified Code(s): K21.9 - Gastro-esophageal reflux disease without esophagitis Plan: Avoid the foods that causes that usually spicy foods, tomato products, juices, coffee, soda and foods that your sensitive to. After eating do not lie down, allow 3-4 hours before in lie down. And keep the head of bed above 30 degrees to avoid the acid from going up. (10) COPD (chronic obstructive pulmonary disease): Comment: At present he is relatively asymptomatic but his pulmonary function test, has shown mild to moderate degree of COPD with good response to bronchodilator therapy. Currently he is asymptomatic. [place] : Advised to use Advair 250-50 one inh BID only PRN , if the cough or wheezing starts . Does not have to use on regular basis Code(s): J44.9 - Chronic obstructive pulmonary disease, unspecified Plan: Continue with the inhaler Advair and short-acting beta agonist (11) Left lower lobe pulmonary nodule: Comment: February 2021 6 months. 09/2021 SMALL PULMONARY NODULES, STABLE, BENIGN CATEGORY 2. HE IS ACTIVE IN ANNUAL LUNG SCREENING PROGRAM. December [address] scan Code(s): R91.1 - Solitary pulmonary nodule Plan: CT scan last done in December 2022. (12) Colon cancer screening: Code(s): Z12.11 - Encounter for screening for malignant neoplasm of colon Plan: Reminded about colonoscopy (13) Low back pain: Code(s): M54.50 - Low back pain, unspecified Orders: Orders Ferritin 2 Months E03.9 - Hypothyroidism, unspecified IRON PROFILE 2 Months E03.9 - Hypothyroidism, unspecified Complete Blood Count Auto Diff 2 Months E03.9 - Hypothyroidism, unspecified Comprehensive Met. Panel 2 Months E03.9 - Hypothyroidism, unspecified Free T4 (Free Thyroxine) 2 Months E03.9 - Hypothyroidism, unspecified Thyroid Stimulating Hormone 2 Months E03.9 - Hypothyroidism, unspecified Vitamin B12 and Folate 2 Months E03.9 - Hypothyroidism, unspecified Lipid Panel 2 Months E03.9 - Hypothyroidism, unspecified, E78.00 - Pure hypercholesterolemia, unspecified Hemoglobin A1c 2 Months E03.9 - Hypothyroidism, unspecified Reticulocyte Count 2 Months E03.9 - Hypothyroidism, unspecified Referrals Cologuard Test Z12.11 - Encounter for screening for malignant neoplasm of colon, Z12.12 - Encounter for screening for malignant neoplasm of rectum Medications: New lidocaine 4% (Salonpas (lidocaine)) 1 patch topical DAILY PRN 30 ea 7RF pain M54.50 - Low back pain, unspecified methyl salicylate-menthol 10-3 % (Salonpas (methyl salicylate-menthol)) do not exceed 2 doses in a 24 hour period 1 patch topical .QD PRN 30 ea 7RF muscle pain M54.50 - Low back pain, unspecified Coding Level of Care Code Est Pt Level 4 (03015) Diagnoses Essential hypertension I10 Hypertension type: essential hypertension Hypercholesterolemia E78.00 Anemia D64.9 Impaired glucose tolerance R73.02 Coronary artery disease involving [place] coronary artery of [place] heart without angina pectoris I25.10 Coronary Disease-Associated Artery/Lesion type: [place] artery [place] vs. transplanted heart: [place] heart Associated angina: without angina Acquired hypothyroidism E03.9 Hypothyroidism type: acquired Bipolar disorder, current episode mixed, mild F31.61 Active/Remission status: currently active Current bipolar episode type: mixed Current episode severity: mild Obesity (BMI 30-39.9) E66.9 Gastroesophageal reflux disease without esophagitis K21.9 Esophagitis presence: without esophagitis COPD (chronic obstructive pulmonary disease) J44.9 Left lower lobe pulmonary nodule R91.1 Colon cancer screening Z12.11 Low back pain M54.50
== END 2023-06-23 15:02 | disposition home or self-care (01) ==
PROVIDERS: PCP Internal Medicine; Visit Provider Internal Medicine
DX: I10 Essential (primary) hypertension (principal); F31.61 Bipolar disorder, current episode mixed, mild; J44.9 Chronic obstructive pulmonary disease, unspecified; E78.00 Pure hypercholesterolemia, unspecified; D64.9 Anemia, unspecified; R73.02 Impaired glucose tolerance (oral); I25.10 Atherosclerotic heart disease of native coronary artery without angina pectoris; E03.9 Hypothyroidism, unspecified; E66.9 Obesity, unspecified; K21.9 Gastro-esophageal reflux disease without esophagitis; R91.1 Solitary pulmonary nodule; Z12.11 Encounter for screening for malignant neoplasm of colon
CPT/HCPCS: 99214

== ENCOUNTER 2023-09-09 11:05 | Outpatient (REF) | payer OTHER, SELFPAY ==
[2023-09-09 12:34] LABS: Basophils Percent Auto 0.4 % (0-2); Eosinophils Absolute Auto 0.2 X10*3/uL (0.0-0.4); Eosinophils Percent Auto 3.7 % (0-4); Hematocrit 40.1 % (42.0-52.0); Hemoglobin 13.4 g/dl (14.0-18.0); Imm Gran Abs Auto 0.03 X10*3/uL (0.00-0.03); Imm Gran Pct Auto 0.5 % (0.0-0.4); Immature Retic Fraction 22.6 % (2.3-13.4); Lymphocytes Absolute Auto 1.3 X10*3/uL (1.2-4.9); Lymphocytes Percent Auto 22.2 % (20-40); MANUAL DIFF FLAG SCAN; Mean Corpuscular HGB Conc 33.4 g/dl (31.0-36.0); Mean Corpuscular Hemoglobin 33.4 pg (27.0-33.0); Mean Platelet Volume 10.9 fL (9.4-12.4); Monocytes Absolute Auto 0.4 X10*3/uL (0.1-1.2); Monocytes Percent Auto 7.8 % (2-11); Neutrophils Absolute Auto 3.7 x10*3/uL (2.0-8.3); Neutrophils Percent Auto 65.4 % (45-73); PLT CLUMP 1; Red Blood Count 4.01 X10*6/uL (4.60-5.80); Red Cell Distribution Width 13.2 % (11.0-16.0); Reticulocyte Percent 4.1 % (0.5-1.8); Reticulocytes Absolute 0.164 X10*6/uL (0.026-0.095); SCAN SMEAR FLAG 1
[2023-09-09 12:39] LABS: Estimated Average Glucose 105 mg/dL; Hemoglobin A1c % 5.3 % (<6.0)
[2023-09-09 12:53] LABS: Platelet Count 148 X10*3/uL (160-400); White Blood Count 5.7 X10*3/uL (4.8-10.8)
[2023-09-09 12:54] LABS: SLIDE REVIEW VERIFIED
[2023-09-09 13:10] LABS: Alanine Aminotransferase 34 U/L (0-40); Albumin Level 4.3 g/dL (3.5-5.0); Alkaline Phosphatase 96 U/L (39-117); Anion Gap 13 (12-20); Aspartate Amino Transferase 34 U/L (5-37); Bilirubin Total 0.7 mg/dL (0.0-1.0); Blood Urea Nitrogen 18 mg/dL (9-16); Calcium 9.7 mg/dL (8.4-10.2); Carbon Dioxide 27 mmol/L (22-29); Chloride 105 mmol/L (96-108); Cholesterol 141 mg/dL (<200); Estimated Glomerular Filt Rate > 60; Glucose Random 103 mg/dL (60-115); HDL Cholesterol 59 mg/dL (>40); Iron 175 mcg/dL (45-160); LDL Cholesterol Calculated 65 mg/dL (<100); Percent Iron Saturation 61 % (15-50); Potassium 4.1 mmol/L (3.3-5.1); Sodium 141 mmol/L (135-145); Total Iron Binding Capacity 288 mcg/dL (228-428); Total Protein 7.1 g/dL (6.5-8.0); Triglycerides 85 mg/dL (<150); Unsaturated Iron Binding 113 ug/dL
[2023-09-09 13:30] LABS: Ferritin 343 ng/mL (20-250); Free T4 (Free Thyroxine) 1.15 ng/dL (0.71-1.85); Thyroid Stimulating Hormone 1.74 uIU/mL (0.32-4.0)
[2023-09-09 13:32] LABS: Folate 12.9 ng/mL (> or = 4.0); Vitamin B12 591 pg/mL (200-900)
== END 2023-09-09 11:06 | disposition home or self-care (01) ==
LOC: HO.LAB 11:05
PROVIDERS: PCP Internal Medicine; Visit Provider Internal Medicine
DX: E03.9 Hypothyroidism, unspecified (principal); E78.00 Pure hypercholesterolemia, unspecified
CPT/HCPCS: 36415; 80053; 80061; 82607; 82728; 82746; 83036; 83540; 84439; 84443; 85025; 85045

== ENCOUNTER 2024-01-23 11:28 | Outpatient (REF) | payer OTHER, SELFPAY ==
[2024-01-23 11:53] LABS: MANUAL DIFF FLAG NO
[2024-01-23 12:23] LABS: Basophils Percent Auto 0.3 % (0-2); Eosinophils Absolute Auto 0.3 X10*3/uL (0.0-0.4); Eosinophils Percent Auto 5.2 % (0-4); Hematocrit 39.5 % (42.0-52.0); Hemoglobin 13.1 g/dl (14.0-18.0); Imm Gran Abs Auto 0.03 X10*3/uL (0.00-0.03); Imm Gran Pct Auto 0.5 % (0.0-0.4); Immature Retic Fraction 24.5 % (2.3-13.4); Lymphocytes Absolute Auto 1.2 X10*3/uL (1.2-4.9); Lymphocytes Percent Auto 21.3 % (20-40); Mean Corpuscular HGB Conc 33.2 g/dl (31.0-36.0); Mean Corpuscular Hemoglobin 33.3 pg (27.0-33.0); Mean Corpuscular Volume 100.5 fL (80.0-98.0); Monocytes Absolute Auto 0.5 X10*3/uL (0.1-1.2); Monocytes Percent Auto 8.5 % (2-11); Neutrophils Absolute Auto 3.7 x10*3/uL (2.0-8.3); Neutrophils Percent Auto 64.2 % (45-73); Platelet Count 143 X10*3/uL (160-400); Red Blood Count 3.93 X10*6/uL (4.60-5.80); Retic HGB Equivalent 35.3 pg (30.0-35.0); Reticulocyte Percent 3.4 % (0.5-1.8); Reticulocytes Absolute 0.132 X10*6/uL (0.026-0.095); White Blood Count 5.7 X10*3/uL (4.8-10.8)
[2024-01-23 13:07] LABS: Alanine Aminotransferase 25 U/L (0-40); Albumin Level 4.2 g/dL (3.5-5.0); Alkaline Phosphatase 82 U/L (39-117); Anion Gap 12 (12-20); Aspartate Amino Transferase 19 U/L (5-37); Bilirubin Total 0.8 mg/dL (0.0-1.0); Blood Urea Nitrogen 19 mg/dL (9-16); Calcium 9.6 mg/dL (8.4-10.2); Carbon Dioxide 26 mmol/L (22-29); Chloride 105 mmol/L (96-108); Cholesterol 129 mg/dL (<200); Estimated Glomerular Filt Rate > 60; Glucose Random 116 mg/dL (60-115); HDL Cholesterol 56 mg/dL (>40); LDL Cholesterol Calculated 51 mg/dL (<100); Magnesium 1.9 mg/dL (1.6-2.6); Sodium 139 mmol/L (135-145); Total Protein 6.7 g/dL (6.5-8.0); Triglycerides 114 mg/dL (<150); Uric Acid 4.3 mg/dL (3.4-7.0)
[2024-01-23 13:21] LABS: Ferritin 300 ng/mL (20-250); Free T4 (Free Thyroxine) 1.03 ng/dL (0.71-1.85); Thyroid Stimulating Hormone 5.23 uIU/mL (0.32-4.0); Vitamin D 25-OH Total 35.1 ng/mL (>30)
[2024-01-23 13:36] LABS: Folate 13.3 ng/mL (> or = 4.0); Prostate Specific Antigen Scr 1.83 ng/mL (<0.05-4.0); Vitamin B12 620 pg/mL (200-900)
== END 2024-01-23 11:29 | disposition home or self-care (01) ==
LOC: HO.LAB 11:28
PROVIDERS: PCP Internal Medicine; Visit Provider Internal Medicine
DX: E78.00 Pure hypercholesterolemia, unspecified (principal); Z12.5 Encounter for screening for malignant neoplasm of prostate
CPT/HCPCS: 36415; 80053; 80061; 82306; 82607; 82728; 82746; 83735; 84153; 84439; 84443; 84550; 85025; 85045

== ENCOUNTER 2024-01-24 14:19 | Outpatient (REF) | payer OTHER, SELFPAY ==
[2024-01-24 14:32] LABS: Appearance Urine Clear; Color Urine Yellow; Glucose Urine UA Negative (Negative); Leukocyte Esterase Urine Negative (Negative); Nitrite Urine Negative (Negative); PH 5.5 (5.0-9.0); Specific Gravity - Urine 1.015 (1.005-1.025); Urine Blood Negative (Negative); Urine Ketones Negative (Negative); Urine Protein Negative (Neg-Trace)
== END 2024-01-24 14:20 | disposition home or self-care (01) ==
LOC: HO.LNP 14:19
PROVIDERS: PCP Internal Medicine; Visit Provider Internal Medicine
DX: R30.0 Dysuria (principal); E78.00 Pure hypercholesterolemia, unspecified; I10 Essential (primary) hypertension; I25.10 Atherosclerotic heart disease of native coronary artery without angina pectoris; E03.9 Hypothyroidism, unspecified; R73.02 Impaired glucose tolerance (oral); D63.8 Anemia in other chronic diseases classified elsewhere; J43.9 Emphysema, unspecified; K21.9 Gastro-esophageal reflux disease without esophagitis; E66.9 Obesity, unspecified; R91.1 Solitary pulmonary nodule
CPT/HCPCS: 81003; 83036; 99212

== ENCOUNTER 2024-01-24 14:19 | Outpatient (AMB) | payer OTHER, SELFPAY ==
--- NOTE | 2024-01-24 14:48 | MHC.PC.OV ---
Vital Signs 01/24/24 14:49 Height 5 ft 11 in Weight 229 lb 6 oz BMI 32.0 BP 130/70 Blood Pressure Location Lt brachial Position Sitting Pulse 82 Pulse Source Pulse Oximeter Pulse Oximetry (%) 97 Oxygen Delivery Method Room Air Intake Visit Reasons: 3M follow up Intake Note: Patient is here to follow up on HTN, IFG, COPD, CAD. Pt decline flu shot today. Client Advocate Required: No Video Game Repair Technician: Not Required per policy Accompanied by: Self / Same As Patient Allergies azithromycin [AZITHROMYCIN] Allergy (Intermediate, Verified 01/24/24 14:49) Unknown divalproex sodium [From Depakote] Allergy (Unknown, Verified 01/24/24 14:49) Hair loss erythromycin base [ERYTHROMYCIN BASE] Allergy (Unknown, Verified 01/24/24 14:49) Anaphylaxis lithium Allergy (Unknown, Verified 01/24/24 14:49) Thyroid disorder trazodone Allergy (Unknown, Verified 01/24/24 14:49) priapism atorvastatin Adverse Reaction (Intermediate, Verified 01/24/24 14:49) myalgia lisinopril Adverse Reaction (Intermediate, Verified 01/24/24 14:49) Cough Tobacco use date assessed: 01/24/24 Fall risk assessment: No Falls in past year Last assessed Fall Risk: 01/24/24 Dental Screening Dental Screen Date: 06/23/23 HPI 3M follow up HPI Details 73 year old obese male with hypertension hypercholesterolemia impaired glucose tolerance coronary artery disease bipolar disorder hypothyroidism GERD COPD coming in for follow-up. Last seen in 07/06/2023. [facility] Medical History (Updated 01/24/24 @ 18:41 by Phuc Alvarez MD) Personal history of nicotine dependence PTSD (post-traumatic stress disorder) Bipolar disorder Coronary artery disease Hypertension Hypercholesterolemia Hypothyroid Impaired glucose tolerance COPD (chronic obstructive pulmonary disease) Pulmonary nodule Allergic rhinitis Anemia GERD (gastroesophageal reflux disease) Hypersomnia Vitamin D deficiency Obesity (BMI 30-39.9) Cervical spine fracture Surgical History History of cervical spinal surgery History of surgery H/O nasal polyp History of surgery on arm History of tooth extraction Family History Father CAD (coronary artery disease) Myocardial infarction CVD (cardiovascular disease) Mother No problems noted. Brother In good health Sister In good health Maternal Aunt Lung cancer Social History Housing: Apartment Alcohol intake: current Alcohol intake frequency: a few times a week Patient Tobacco Use Status: Former Tobacco user Tobacco use type: Cigarette e-Cigarette/Vaping Use: Never Used Second Hand Smoke Exposure: No service: Yes Current occupational status: retired Cognitive needs: No Hearing needs: No Vision needs: Yes Questionnaire Thrive Questionnaire Date Thrive assessed: 06/23/23 Are you currently unemployed and looking for a job?: No DEEPA-7 AMB Questionnaire DEEPA-7 Date DEEPA - 7 assessed: 06/23/23 Source: Developed by Drs. Olman Albert, Ruby Garcia, uKnal Mcclendon and colleagues, with an educational jae from [employer]. Physical exam (Primary Care) Vital Signs: Last Vital Signs Pulse 82 01/24/24 14:49 BP 130/70 01/24/24 14:49 Pulse Ox 97 01/24/24 14:49 Oxygen Delivery Method Room Air 01/24/24 14:49 BMI result Body Mass Index 32.0 Tobacco/Smoking Status: Tobacco use Status Tobacco use date assessed 01/24/24 01/24/24 14:58 Patient Tobacco Use Status Former Tobacco user 01/24/24 14:58 Tobacco use type Cigarette 01/24/24 14:58 e-Cigarette/Vaping Use Never Used 01/24/24 14:58 Thrive Assessment: Date of Thrive Assessment Date Thrive assessed 06/23/23 01/24/24 14:58 Const General: alert; No acute distress Eyes Conjunctivae: conjunctivae normal Resp Auscultation: clear to auscultation bilaterally Cardio Rate: regular rate Rhythm: regular rhythm GI Inspection: Yes normal to inspection Extrem General: Yes normal to inspection and No edema Results AMB Hemoglobin A1c AMB Hemoglobin A1c 5.3 % Last Edit by WADE Darden on 01/24/24 15:02 Results Reviewed Results Reviewed: Laboratory Last Values Hgb A1c (Clinic) 5.3 % (4.0-6.0) 01/24/24 14:47 Coding Level of Care Code Est Pt Level 4 (84596) Complex EM visit Add On G2211 Diagnoses Coronary artery disease involving [place] coronary artery of [place] heart without angina pectoris I25.10 Associated angina: without angina Coronary Disease-Associated Artery/Lesion type: [place] artery [place] vs. transplanted heart: [place] heart Essential hypertension I10 Hypertension type: essential hypertension Hypercholesterolemia E78.00 Acquired hypothyroidism E03.9 Hypothyroidism type: acquired Impaired glucose tolerance R73.02 Anemia in other chronic diseases classified elsewhere D63.8 Anemia type: other cause Other causes of anemia: chronic disease, other Pulmonary emphysema, unspecified emphysema type J43.9 COPD type: emphysema Emphysema type: unspecified Gastroesophageal reflux disease without esophagitis K21.9 Esophagitis presence: without esophagitis Obesity (BMI 30-39.9) E66.9 Pulmonary nodule R91.1 Assessment & Plan Assessment & Plan (1) Coronary artery disease: Comment: Noted on CT scan Code(s): I25.10 - Atherosclerotic heart disease of [place] coronary artery without angina pectoris Category: Medical Qualifiers: Associated angina: without angina Coronary Disease-Associated Artery/Lesion type: [place] artery [place] vs. transplanted heart: [place] heart Qualified Code(s): I25.10 - Atherosclerotic heart disease of [place] coronary artery without angina pectoris Plan: Control the cholesterol, weight, blood pressure continue on aspirin 81 mg once a day (2) Hypertension: Code(s): I10 - Essential (primary) hypertension Category: Medical Qualifiers: Hypertension type: essential hypertension Qualified Code(s): I10 - Essential (primary) hypertension Plan: Continue with blood pressure medication. Decrease salt intake and exercise patient is on hydrochlorothiazide 12.5 mg once a day losartan 50 mg once a day (3) Hypercholesterolemia: Code(s): E78.00 - Pure hypercholesterolemia, unspecified Category: Medical Plan: Avoid fried foods, chicken skin, eggs, butter margarine, pastries and meat. Be it pork or beef they have a lot of cholesterol LDL goal of less than 70 and triglyceride of less than 150. Patient is on rosuvastatin 40 mg once a day (4) Hypothyroid: Code(s): E03.9 - Hypothyroidism, unspecified Category: Medical Qualifiers: Hypothyroidism type: acquired Qualified Code(s): E03.9 - Hypothyroidism, unspecified Plan: Continue with thyroid medication (5) Impaired glucose tolerance: Code(s): R73.02 - Impaired glucose tolerance (oral) Category: Medical Plan: Hemoglobin A1c is normal. Decrease the amount of carbohydrate intake, pasta, bread, rice and potatoes are all sugar and that is aside from all the sweet stuff, remember that fruits are good but they are Sweet also. (6) Anemia: Code(s): D64.9 - Anemia, unspecified Category: Medical Qualifiers: Anemia type: other cause Other causes of anemia: chronic disease, other Qualified Code(s): D63.8 - Anemia in other chronic diseases classified elsewhere Plan: Chronic and stable (7) COPD (chronic obstructive pulmonary disease): Comment: At present he is relatively asymptomatic but his pulmonary function test, has shown mild to moderate degree of COPD with good response to bronchodilator therapy. Currently he is asymptomatic. [place] : Advised to use Advair 250-50 one inh BID only PRN , if the cough or wheezing starts . Does not have to use on regular basis Code(s): J44.9 - Chronic obstructive pulmonary disease, unspecified Category: Medical Qualifiers: COPD type: emphysema Emphysema type: unspecified Qualified Code(s): J43.9 - Emphysema, unspecified Plan: Continue with the inhaler as needed (8) GERD (gastroesophageal reflux disease): Code(s): K21.9 - Gastro-esophageal reflux disease without esophagitis Category: Medical Qualifiers: Esophagitis presence: without esophagitis Qualified Code(s): K21.9 - Gastro-esophageal reflux disease without esophagitis Plan: Avoid the foods that causes that usually spicy foods, tomato products, juices, coffee, soda and foods that your sensitive to. After eating do not lie down, allow 3-4 hours before in lie down. And keep the head of bed above 30 degrees to avoid the acid from going up. (9) Obesity (BMI 30-39.9): Code(s): E66.9 - Obesity, unspecified Category: Medical Plan: Diet and exercise (10) Pulmonary nodule: Comment: ( stable in LDCT Lung Screening program) Code(s): R91.1 - Solitary pulmonary nodule Category: Medical Plan: Will continue to follow-up as the patient has new pulmonary nodules Orders: Orders AMB Hemoglobin A1c Today R73.02 - Impaired glucose tolerance (oral) Creatinine Today R91.1 - Solitary pulmonary nodule Thyroid Stimulating Hormone Today E03.9 - Hypothyroidism, unspecified Free T4 (Free Thyroxine) Today E03.9 - Hypothyroidism, unspecified CT chest w IV con Today R91.1 - Solitary pulmonary nodule Blood Urea Nitrogen Today R91.1 - Solitary pulmonary nodule
[2024-01-24 14:49] VITALS: BP 130/70; PULSE 82; O2SAT 97; BMI 32.0
== END 2024-01-24 15:37 | disposition home or self-care (01) ==
PROVIDERS: PCP Internal Medicine; Visit Provider Internal Medicine
DX: I25.10 Atherosclerotic heart disease of native coronary artery without angina pectoris (principal); J43.9 Emphysema, unspecified; E66.9 Obesity, unspecified; Z68.32 Body mass index [BMI] 32.0-32.9, adult; R73.02 Impaired glucose tolerance (oral); I10 Essential (primary) hypertension; E78.00 Pure hypercholesterolemia, unspecified; E03.9 Hypothyroidism, unspecified; D63.8 Anemia in other chronic diseases classified elsewhere; K21.9 Gastro-esophageal reflux disease without esophagitis; R91.1 Solitary pulmonary nodule

== ENCOUNTER 2024-02-14 14:48 | Outpatient (REF) | payer OTHER, SELFPAY ==
[2024-02-14 16:06] LABS: Blood Urea Nitrogen 21 mg/dL (9-16); Estimated Glomerular Filt Rate > 60
[2024-02-14 16:23] LABS: Thyroid Stimulating Hormone 4.36 uIU/mL (0.32-4.0)
== END 2024-02-14 14:49 | disposition home or self-care (01) ==
LOC: HO.LAB 14:48
PROVIDERS: PCP Internal Medicine; Visit Provider Internal Medicine
DX: R91.1 Solitary pulmonary nodule (principal); E03.9 Hypothyroidism, unspecified
CPT/HCPCS: 36415; 82565; 84439; 84443; 84520

== ENCOUNTER 2024-03-20 15:35 | Outpatient (REF) | payer OTHER, SELFPAY ==
[2024-03-20] MEDS: iohexoL 350 MG/ML 100 ML INFUS..BTL IV (16:29)
[2024-03-21 07:40] LABS: Creatinine POC 0.7 mg/dL (0.5-1.4); GFR POC > 60
== END 2024-03-20 15:36 | disposition home or self-care (01) ==
LOC: HO.CT 15:35
PROVIDERS: PCP Internal Medicine; Visit Provider Internal Medicine
DX: R91.1 Solitary pulmonary nodule (principal)
CPT/HCPCS: 71260; 82565; Q9967

== ENCOUNTER → 2024-03-20 15:38 | Outpatient (BNV) | payer OTHER, SELFPAY | PROVIDERS: PCP Internal Medicine; Visit Provider Radiology Diagnostic Radiology | DX: R91.1 Solitary pulmonary nodule (principal) | CPT/HCPCS: 71260 ==

== ENCOUNTER 2024-04-26 11:36 | Outpatient (REF) | payer OTHER, SELFPAY ==
[2024-04-26 11:58] LABS: MANUAL DIFF FLAG NO
[2024-04-26 12:19] LABS: Basophils Percent Auto 0.3 % (0-2); Eosinophils Absolute Auto 0.2 X10*3/uL (0.0-0.4); Eosinophils Percent Auto 3.4 % (0-4); Hematocrit 40.4 % (42.0-52.0); Hemoglobin 13.1 g/dl (14.0-18.0); Imm Gran Abs Auto 0.03 X10*3/uL (0.00-0.03); Imm Gran Pct Auto 0.5 % (0.0-0.4); Immature Retic Fraction 19.3 % (2.3-13.4); Lymphocytes Absolute Auto 1.2 X10*3/uL (1.2-4.9); Lymphocytes Percent Auto 18.9 % (20-40); Mean Corpuscular HGB Conc 32.4 g/dl (31.0-36.0); Mean Corpuscular Hemoglobin 32.2 pg (27.0-33.0); Mean Corpuscular Volume 99.3 fL (80.0-98.0); Mean Platelet Volume 9.7 fL (9.4-12.4); Monocytes Absolute Auto 0.5 X10*3/uL (0.1-1.2); Monocytes Percent Auto 8.3 % (2-11); Neutrophils Absolute Auto 4.3 x10*3/uL (2.0-8.3); Neutrophils Percent Auto 68.6 % (45-73); Platelet Count 169 X10*3/uL (160-400); Red Blood Count 4.07 X10*6/uL (4.60-5.80); Red Cell Distribution Width 13.6 % (11.0-16.0); Retic HGB Equivalent 35.2 pg (30.0-35.0); Reticulocyte Percent 3.6 % (0.5-1.8); Reticulocytes Absolute 0.147 X10*6/uL (0.026-0.095); White Blood Count 6.2 X10*3/uL (4.8-10.8)
[2024-04-26 12:38] LABS: Estimated Average Glucose 94 mg/dL; Hemoglobin A1c % 4.9 % (<6.0); Total Hemoglobin (HGBA1C) 3460.5478 umol/L
[2024-04-26 13:19] LABS: Alanine Aminotransferase 36 U/L (0-40); Albumin Level 4.3 g/dL (3.5-5.0); Alkaline Phosphatase 102 U/L (39-117); Anion Gap 11 (12-20); Aspartate Amino Transferase 32 U/L (5-37); Bilirubin Total 0.7 mg/dL (0.0-1.0); Blood Urea Nitrogen 23 mg/dL (9-16); Carbon Dioxide 28 mmol/L (22-29); Chloride 104 mmol/L (96-108); Cholesterol 118 mg/dL (<200); Estimated Glomerular Filt Rate > 60; Ferritin 360 ng/mL (20-250); Free T4 (Free Thyroxine) 1.21 ng/dL (0.71-1.85); Glucose Random 115 mg/dL (60-115); HDL Cholesterol 57 mg/dL (>40); Iron 86 mcg/dL (45-160); LDL Cholesterol Calculated 51 mg/dL (<100); Percent Iron Saturation 35 % (15-50); Potassium 4.2 mmol/L (3.3-5.1); Sodium 139 mmol/L (135-145); Thyroid Stimulating Hormone 1.54 uIU/mL (0.32-4.0); Total Iron Binding Capacity 246 mcg/dL (228-428); Triglycerides 54 mg/dL (<150); Unsaturated Iron Binding 160 ug/dL
[2024-04-26 13:27] LABS: Folate 15.2 ng/mL (> or = 4.0); Vitamin B12 766 pg/mL (200-900)
== END 2024-04-26 11:37 | disposition home or self-care (01) ==
LOC: HO.LAB 11:36
PROVIDERS: PCP Internal Medicine; Visit Provider Internal Medicine
DX: I25.10 Atherosclerotic heart disease of native coronary artery without angina pectoris (principal); D63.8 Anemia in other chronic diseases classified elsewhere; R73.02 Impaired glucose tolerance (oral); E78.00 Pure hypercholesterolemia, unspecified
CPT/HCPCS: 36415; 80053; 80061; 82607; 82728; 82746; 83036; 83540; 84439; 84443; 85025; 85045

== ENCOUNTER → 2024-05-17 15:31 | Outpatient (BNVA) | payer OTHER, SELFPAY | PROVIDERS: PCP Internal Medicine; Visit Provider Internal Medicine | DX: I25.10 Atherosclerotic heart disease of native coronary artery without angina pectoris (principal); F31.61 Bipolar disorder, current episode mixed, mild; R91.1 Solitary pulmonary nodule; J43.9 Emphysema, unspecified; E66.9 Obesity, unspecified; K21.9 Gastro-esophageal reflux disease without esophagitis; E03.9 Hypothyroidism, unspecified; E78.00 Pure hypercholesterolemia, unspecified; I10 Essential (primary) hypertension; R73.02 Impaired glucose tolerance (oral); Z87.891 Personal history of nicotine dependence | CPT/HCPCS: 99212 ==

== ENCOUNTER 2024-07-03 15:05 | Outpatient (AMB) | payer OTHER, SELFPAY ==
--- NOTE | 2024-07-03 15:13 | MHC.PC.OV ---
Vital Signs 07/03/24 15:22 Height 5 ft 11 in Weight 211 lb BMI 29.4 BP 132/60 Blood Pressure Location Lt brachial Position Sitting Pulse 80 Pulse Source Pulse Oximeter Temp 96.8 F Temp Source Temporal Artery Scan Pulse Oximetry (%) 95 Oxygen Delivery Method Room Air Intake Visit Reasons: Pre-operative H&P Intake Note: Patient is here for a Pre-op for Cataracts scheduled with Dr Garay on left 07/09/24, right 07/23/24. Investigator Fraud Required: No Float Tender: Not Required per policy Accompanied by: Self / Same As Patient Allergies azithromycin [AZITHROMYCIN] Allergy (Intermediate, Verified 07/03/24 15:37) Unknown divalproex sodium [From Depakote] Allergy (Unknown, Verified 07/03/24 15:37) Hair loss erythromycin base [ERYTHROMYCIN BASE] Allergy (Unknown, Verified 07/03/24 15:37) Anaphylaxis lithium Allergy (Unknown, Verified 07/03/24 15:37) Thyroid disorder trazodone Allergy (Unknown, Verified 07/03/24 15:37) priapism atorvastatin Adverse Reaction (Intermediate, Verified 07/03/24 15:37) myalgia lisinopril Adverse Reaction (Intermediate, Verified 07/03/24 15:37) Cough Medication List - Last Reconciled 07/03/24 by Shreya Tineo PA-C acetaminophen 500 mg PO Q6H PRN acyclovir 400 mg PO TID 7 days albuterol sulfate 90 mcg/actuation (ProAir HFA) 2 puffs inhalation QID PRN alprazolam (Xanax) 0.25 mg PO BEDTIME PRN aspirin 81 mg PO DAILY 90 days [BED WEDGE As directed] cetirizine 10 mg PO DAILY cholecalciferol (vitamin D3) 50 mcg PO DAILY diphenhydramine HCl (Banophen) 50 mg PO BEDTIME docusate sodium 200 mg (2 x 100 mg) PO TID ezetimibe 10 mg PO DAILY ferrous sulfate (FeroSul) 325 mg PO BID fluticasone propion-salmeterol 250-50 mcg/dose (Advair Diskus) 1 inh inhalation BID 90 days hydrochlorothiazide 12.5 mg PO QAM levothyroxine 125 mcg PO QAM losartan 50 mg PO DAILY melatonin 3 mg PO BEDTIME PRN mometasone 50 mcg/actuation (Nasonex 24hr Allergy) 2 sprays intranasal DAILY PRN oqrizfgacgsa-ksmhjzla-rvfkww 1 tab PO DAILY omeprazole 20 mg PO DAILY psyllium husk (Reguloid (psyllium husk)) 0.8 grams (2 x 0.4 gram) PO QID PRN 30 days rosuvastatin 40 mg PO DAILY 90 days sennosides-docusate sodium 8.6-50 mg (Senna Plus) 4 tabs PO BEDTIME Shower Chair As directed tramadol 50 mg PO TID PRN 90 days Tobacco use date assessed: 07/03/24 Fall risk assessment: No Falls in past year Last assessed Fall Risk: 07/03/24 Dental Screening Dental Screen Date: 05/17/24 HPI Pre-operative H&P HPI Details 73-year-old male with past medical history of obesity, GERD, nicotine dependence, COPD, obstructive sleep apnea, impaired glucose tolerance, hypercholesterolemia, hypothyroid, hypertension, coronary artery disease, bipolar disorder last seen 04/2024 coming in for preoperative visit.? Patient is scheduled to have cataract surgery with Dr. Garay left 07/09/24, right 07/23/24. Patient has no history of heart attack, CVA, CHF or diabetes mellitus. Patient has had surgery in the past without complication. Impaired glucose tolerance: Last A1c 4.9% not presently on medication Hypertension: Blood pressure at goal today 132/60 presently on losartan 50 mg, hydrochlorothiazide 12.5 mg COUNTS INCLUDE 234 BEDS AT [facility] Medical History Personal history of nicotine dependence PTSD (post-traumatic stress disorder) Bipolar disorder Coronary artery disease Hypertension Hypercholesterolemia Hypothyroid Impaired glucose tolerance COPD (chronic obstructive pulmonary disease) Pulmonary nodule Allergic rhinitis Anemia GERD (gastroesophageal reflux disease) Hypersomnia Vitamin D deficiency Obesity (BMI 30-39.9) Cervical spine fracture Surgical History History of cervical spinal surgery History of surgery H/O nasal polyp History of surgery on arm History of tooth extraction Family History Father CAD (coronary artery disease) Myocardial infarction CVD (cardiovascular disease) Mother No problems noted. Brother In good health Sister In good health Maternal Aunt Lung cancer Social History Housing: Apartment Alcohol intake: current Alcohol intake frequency: a few times a week Patient Tobacco Use Status: Former Tobacco user Tobacco use type: Cigarette e-Cigarette/Vaping Use: Never Used Second Hand Smoke Exposure: Yes service: Yes Current occupational status: retired Cognitive needs: No Hearing needs: No Vision needs: Yes Questionnaire Thrive Questionnaire Date Thrive assessed: 05/17/24 DEEPA-7 AMB Questionnaire DEEPA-7 Date DEEPA - 7 assessed: 05/17/24 Source: Developed by Drs. Olman Albert, Ruby Garcia, Kunal Mcclendon and colleagues, with an educational jae from [employer]. Review of Systems Const Denies headache(s) Eyes Reports no additional complaints ENT Denies dysphagia, Denies dizziness, Denies headache(s) and Denies odynophagia Card Denies chest pain, Denies syncope, Denies edema, Denies irregular heart rhythm, Denies lightheadedness and Denies dyspnea Resp Denies dyspnea GI Denies abdominal pain, Denies constipation, Denies dysphagia, Denies diarrhea, Denies nausea, Denies odynophagia and Denies vomiting Reports no additional complaints Musc Reports no additional complaints and Denies abnormal gait Skin/Breast Reports system reviewed and no additional complaints, except as documented Neuro Denies abnormal gait, Denies dizziness, Denies syncope and Denies headache(s) Psych Reports no additional complaints Physical exam (Primary Care) Vital Signs: Last Vital Signs Temp 96.8 F 07/03/24 15:22 Pulse 80 07/03/24 15:22 BP 132/60 07/03/24 15:22 Pulse Ox 95 07/03/24 15:22 Oxygen Delivery Method Room Air 07/03/24 15:22 BMI result Body Mass Index 29.4 Tobacco/Smoking Status: Tobacco use Status Tobacco use date assessed 07/03/24 07/03/24 15:15 Patient Tobacco Use Status Former Tobacco user 07/03/24 15:15 Tobacco use type Cigarette 07/03/24 15:15 e-Cigarette/Vaping Use Never Used 07/03/24 15:15 Thrive Assessment: Date of Thrive Assessment Date Thrive assessed 05/17/24 07/03/24 15:15 Const General: cooperative, healthy appearing, comfortable and no acute distress Orientation/consciousness: patient oriented x3 HENMT Head: Yes normocephalic Ears: hearing grossly normal bilaterally General nose exam: Normal external nose present Eyes General: appearance normal, both eyes and all related structures Conjunctivae: conjunctivae normal Neck Neck: Yes full ROM and Yes no lymphadenopathy Resp Effort & Inspection: normal respiratory effort Auscultation: clear to auscultation bilaterally, no crackles, no rales, no rhonchi and no wheezes Cardio Rate: regular rate Rhythm: regular rhythm Skin General skin exam: no rashes or lesions noted Neuro General: patient oriented x3 Gait exam (Neuro): Normal gait present Extrem General: Yes normal to inspection, Yes full ROM and No edema Psych Affect: normal affect Attitude: cooperative Insight: Good insight present (Psych) Judgement: Good judgement present (Psych) Coding Level of Care Code Est Pt Level 3 (51370) Diagnoses Pre-op evaluation Z01.818 Assessment & Plan Assessment & Plan (1) Pre-op evaluation: Code(s): Z01.818 - Encounter for other preprocedural examination Category: Medical Plan: Regarding preop clearance, the patient is at low-moderate risk for proposed surgery due to age and comorbidities. Reviewed with the patient that no surgery is completely free of risk and that this examination is to assist the surgeon in reviewing informed consent. Patient may continue on all medications as prescribed up until the day of the procedure. As modern cataract surgeries rarely cause any bleeding, he is advised that he should continue on his low dose Aspirin 81 mg QD; but is advised that I will leave it up to the discretion of the registered representative performing the procedure if he is comfortable with patient being on Clopidogrel or not for his eye surgery Most recent blood work 04/2024 reviewed no further workup needed at this time and may proceed with the contemplated procedure. EKGs not typically in the workup prior to cataract surgery however if surgeon request I can place this order. Thank you very much for letting me participate in the care of this patient. Plan This note was constructed using voice recognition software. While every effort has been made to ensure accuracy and executive vice president and chief financial officer, still areas may have been included sometimes these areas may affect the content or meeting of the given symptoms. Total time spent caring for the patient today was 20 minutes. This includes time spent before the visit reviewing the chart, time spent during the visit, and time spent after the visit and documentation.
[2024-07-03 15:22] VITALS: BP 132/60; PULSE 80; TEMP 36; O2SAT 95; BMI 29.4
--- OUTSIDE RECORDS SUMMARY | 2024-07-03 18:01 | XMS_ITS | Clinical Summary ---
Author Organization [facility] Address [address] [place] [address] Care Team Providers Care Equipment Records Supervisor Name Role Phone Unavailable Primary Care Provider [...]
--- OUTSIDE RECORDS SUMMARY | 2024-07-03 18:01 | XMS_ITS ---
Author Organization [facility] Address [address] [place] [address] Care Team Providers Care Smelter Charger Name Role Phone Phuc Alvarez Primary Care Provider Vilma Torres Unavailable [phone] Barbara Rubi [phone] Champion Encounters Encounter Location Date Provider Diagnosis [facility] [address] [place] [address] 05/31/2024 Barbara Rubi Plan Of Treatment Next Appt Details Provider Name:Vilma lewis, 09/04/2024 02:45:00 PM, [address] [place], [address], Progress Notes * Konrad JUDGEDOB:1950 ([age] yo M)Acc No.[id number]:05/31/2024 Progress Note Patient:?Konrad JUDGE Provider:?Barbara Rubi DPM :1950???Age:73 Y???Sex:Male Manpreet e:05/31/2024 Address:[address] [place] [address] [address], [place], [place] Pcp:Phuc Alvarez Subjective: * Chief Complaints: * [...] DPM Date:?0 05/31/2024 Generated for Imani goldberg/Ronel/Kushal on:?07/03/2024 06:01 PM EDT
--- OUTSIDE RECORDS SUMMARY | 2024-07-03 18:01 | XMS_ITS | Patient Health Record ---
Author Organization [facility] Address [address] [place] [address] Care Team Providers Care Credit Portfolio Manager Name Role Phone Phuc Alvarez Primary Care Provider UnavailVilma Arias Unavailable [phone] Sawyer Molina Unavailable [phone] Barbara Rubi Unavailable [phone] Allergies Allergen (clinical drug ingredient) Drug/Non Drug [...] Active Immunizations Vaccine Route Administration Date Status [facility] COVID-19 Moderna Vaccine Unknown 02/12/2021 Administered [...] Polyneuropathy due to diabetes mellitus type I (241295019) Type 1 diabetes mellitus with diabetic polyneuropathy (E10.42) Active confirmed Problem Polyneuropathy due to type 2 diabetes mellitus (860112318) Type 2 diabetes mellitus with diabetic polyneuropathy (E11.42) Active confirmed Problem Bilateral atherosclerosis of arteries of lower limbs (disorder) ([id number] ) Unspecified atherosclerosis of [place] arteries of extremities, bilateral legs (I70.203) Active confirmed Vital Signs Blood pressure diastolic 60 mm Hg 06/05/2024 Height 3vu68cy in 06/05/2024 Blood pressure systolic 110 mm Hg 06/05/2024 Weight 205 lbs 06/05/2024 BMI 28.59 kg/m2 06/05/2024 Procedures Procedure Date Ordered Date Performed Result Body Sit e 27760-WPGGVIQ NAIL, 6 OR MORE 03/22/2024 N/A 53138-UXZV SKIN LESIONS, 2 TO 4 03/22/2024 N/A Encounters Encounter Location Date Provider Diagnosis [address] [address] 09/19/2023 Sawyer Molina Tinea unguium B35.1 ; Pain in right toe(s) M79.674 ; Pain in left toe(s) M79.675 ; Unspecified atherosclerosis of [place] arteries of extremities, bilateral legs I70.203 and Xerosis cutis L85.[address] [address] 12/14/2023 Sawyer Molina Tinea unguium B35.1 ; Pain in right toe(s) M79.674 ; Pain in left toe(s) M79.675 ; Unspecified atherosclerosis of [place] arteries of extremities, bilateral legs I70.203 and Xerosis cutis L85.[address] [address] 03/22/2024 Barbara Rubi Tinea unguium B35.1 ; Type 2 diabetes mellitus with diabetic polyneuropathy E11.42 and Unspecified atherosclerosis of [place] arteries of extremities, bilateral legs I70.[address] [address] 06/05/2024 Vilma Mcqueen Type 2 diabetes mellitus with diabetic polyneuropathy E11.42 ; Tinea pedis of both feet B35.3 ; Tinea unguium B35.1 and Unspecified atherosclerosis of [place] arteries of extremities, bilateral legs I70.203 [facility] [address] [address] 06/12/2024 Vilma Mcqueen Assessments Encounter Date Diagnosis (ICD Code) Assessment Notes Treatment Notes Treatment Clinical Notes Section Notes 09/19/2023 Tinea unguium (ICD-10 - B35.1) 12/14/2023 Tinea unguium (ICD-10 - B35.1) 03/22/2024 Type 2 diabetes mellitus with diabetic polyneuropathy (ICD-10 - E11.42) 03/22/2024 Tinea unguium (ICD-10 - B35.1) 06/05/2024 Type 2 diabetes mellitus with diabetic polyneuropathy (ICD-10 - E11.42) 06/05/2024 Tinea pedis of both feet (ICD-10 - B35.3) 06/05/2024 Tinea unguium (ICD-10 - B35.1) 03/22/2024 Unspecified atherosclerosis of [place] arteries of extremities, bilateral legs (ICD-10 - I70.203) 12/14/2023 Pain in right toe(s) (ICD-10 - M79.674) 09/19/2023 Pain in right toe(s) (ICD-10 - M79.674) 09/19/2023 Pain in left toe(s) (ICD-10 - M79.675) 12/14/2023 Pain in left toe(s) (ICD-10 - M79.675) 06/05/2024 Unspecified atherosclerosis of [place] arteries of extremities, bilateral legs (ICD-10 - I70.203) 12/14/2023 Unspecified atherosclerosis of [place] arteries of extremities, bilateral legs (ICD-10 - I70.203) 09/19/2023 Unspecified atherosclerosis of [place] arteries of extremities, bilateral legs (ICD-10 - I70.203) 09/19/2023 Xerosis cutis (ICD-10 - L85.3) 12/14/2023 Xerosis cutis (ICD-10 - L85.3) Plan Of Treatment Pending Test Test Name Order Date 53682-GDMPRRL NAIL, 6 OR MORE 03/22/2024 43574-HFQU SKIN LESIONS, 2 TO 4 03/22/20 24 25775-UJDY SKIN LESIONS, 2 TO 4 06/15/19 22 43818-AEZV SKIN LESIONS, 2 TO 4 09/10/19 Next Appt Details Provider Name:Vilma lewis, 09/04/2024 02:45:00 PM, [address] [place] [address], [place], [address], Insurance Providers Payer Name Payer Address Payer Phone Subscriber Number Group Number Insured Name Patient Relationship to Insured Coverage Start Date Coverage End Date [facility] [employer] Claims [address] IRINEO Thakur [id number] Konrad Varela Self - patient is the insured Medical (General) History Medical History History ICD Code Back,Hip,and Knee pain Broken bones CAD (Cholesterol) Cataracts High blood pressure Reflux ( GERD) thyroid Measles Mumps Chicken pox Joint implants/screws atrial sclerosis Surgical History Surgery Date(Month/Year) neck surgery 2019? nose 2001
--- OUTSIDE RECORDS SUMMARY | 2024-07-03 18:01 | XMS_ITS ---
Author [facility] Address [address] [place] [address] Care Team Providers Care Injection Press Operator Name Role Phone Phuc Alvarez Primary Care Provider Vilma Torres Unavailable [phone] Allergies Allergen (clinical drug ingredient) Drug/Non Drug [...] Answer Notes Tobacco use: Nonsmoker Vital Signs Blood pressure systolic 110 mm Hg 06/05/19 25 Blood pressure diastolic 60 mm Hg 025 Height 0lv12dz in 06/05/2024 Weight 205 lbs 06/05/2024 BMI 28.59 kg/m2 06/05/2024 Encounters Encounter Location Date Provider Diagnosis [facility] [address] [place] [address] 06/05/2024 Vilma Mcqueen Type 2 diabetes mellitus with diabetic polyneuropathy E11.42 ; Tinea pedis of both feet B35.3 ; Tinea unguium B35.1 and Unspecified atherosclerosis of sam[place] arteries of extremities, bilateral legs I70.203 Assessments Encounter Date Diagnosis (ICD Code) Assessment Notes Treatment Notes Treatment Clinical Notes Section Notes 06/05/2024 Type 2 diabetes mellitus with diabetic polyneuropathy (ICD-10 - E11.42) 06/05/2024 Tinea pedis of both feet (ICD-10 - B35.3) 06/05/2024 Tinea unguium (ICD-10 - B35.1) 06/05/2024 Unspecified atherosclerosis of samish arteries of extremities, bilateral legs (ICD-10 - I70.203) Plan Of Treatment Medication Medication Name Sig Start Date Stop Date Notes Ciclopirox Olamine 0.77 % 1 application Externally Twice a day to skin of feet including between the toes for 30 days Next Appt Details Follow Up: 3 Months, Reason: Provider Name:Vilma lewis, 09/04/2024 02:45:00 PM, [address] [place] [address], [address], Procedure Notes * Category Sub-Category Detail Notes [...] use of a nail nipper and/or dremel-type od grinder operator, to a more viable healthy nail plate [...] to maintain effectiveness in symptomatic relief - 98991 Keratoma Treatment Parring or Cutting o f [...] instrumentation by the physician of record - 68854 Progress Notes * Konrad VARELADOB:1950 ([age] yo M)Acc No.[id number]:06/05/2024 Progress Note Patient:Konrad BATES Provider:?Vilma Mcqueen DPM :1950???Age:73 Y???Sex:Male Manpreet e:06/05/2024 Address:[address] [place] [address] [address], [place] [id number] Pcp:Phuc Alvarez Subjective: * Chief Complaints: * [...] anaphylaxis - Allergyyes[Allergies Verified] Objective: * Vitals:?Ht: 6hk81pa, Wt:205, BMI:28.59, Shoe size: 10, BP:110/60mm Hg, [...] management (4)???3.?Tinea unguium - B35.1???4.?Unspecified atherosclerosis of sam[place] arteries of extremities, bilateral legs - I70.203??? [...] use of a nail nipper and/or dremel-type od grinder operator, to a more viable healthy nail plate [...] to maintain effectiveness in symptomatic relief - 83933.?Keratoma Treatment:?Parring or Cutting of Benign Hyperkeratotic Lesion(s)?(-57) [...] instrumentation by the physician of record - 17982.? * Procedure Codes:?71130 DEBRI DE NAIL, 6 OR MORE, Modifiers: XS 76770 TRIM SKIN LESIONS, OVER 4, Modifiers: XS [...] Mcqueen DPM Date:? Generated for Imani goldberg/Ronel/Kushal on:?07/03/2024 06:01 PM EDT History and Physical Notes * HPI (History [...]
--- OUTSIDE RECORDS SUMMARY | 2024-07-03 18:01 | XMS_ITS ---
Author Organization [facility] Address [address] [place] [address] Care Team Providers Care Cash Management Associate Name Role Phone Phuc Alvarez Primary Care Provider Vilma Torres [phone] REASON FOR VISIT Rs 08/22/24 Appt Encounters Encounter Location Date Provider Diagnosis [address] [place] [address] 06/12/2024 Vilma Mcqueen Plan Of Treatment Next Appt Details Provider Name:Vilma lewis, 09/04/2024 02:45:00 PM, [address] [place], [address], Progress Notes * Konrad VARELADOB:1950 ([age] yo M)Acc No.[id number]:06/12/2024 Patient:?AVERY Konrad :1950???Age:73 Y???Sex:Male Address:[address], [place], [address] * true * Date:? Generated for Janeti yusuf/Ronel/eTransmitting on:?07/03/2024 06:00 PM EDT
== END 2024-07-03 16:05 | disposition home or self-care (01) ==
LOC: HO.HMCH 15:05
PROVIDERS: PCP Internal Medicine
DX: Z01.818 Encounter for other preprocedural examination (principal)

== ENCOUNTER → 2024-07-03 15:05 | Outpatient (BNVA) | payer OTHER, SELFPAY | PROVIDERS: PCP Internal Medicine | DX: Z01.818 Encounter for other preprocedural examination (principal) | CPT/HCPCS: 99212 ==

== ENCOUNTER 2024-07-09 07:55 | Day surgery (SDC) | payer OTHER, SELFPAY ==
[2024-07-04 11:08] VITALS: BMI 29.4
[2024-07-09] MEDS: Tetracaine HCl/PF 0.5% Oph Sol 4 ML DROPS 1 DROP EYE-LEFT (09:43)
[2024-07-09] MEDS: Cyclopentolate 1 % Ophth Sol 2 ML DRPBTL 1 DROP EYE-LEFT ×3 (09:48→10:01)
[2024-07-09] MEDS: Tropicamide 1 % Ophth Sol 3 ML BTL 1 DROP EYE-LEFT ×3 (09:51→10:03)
[2024-07-09] MEDS: Phenylephrine HCL 2.5% Oph SoL 2 ML BOTTLE 1 DROP EYE-LEFT ×3 (09:52→10:07)
[2024-07-09 09:54] VITALS: BP 133/67; PULSE 76; RESP 18; TEMP 36.2; O2SAT 98; BMI 27.6
[2024-07-09] MEDS: Ketorolac Tromethamine 0.5% Op 5 ML DROPS 1 DROP EYE-LEFT ×3 (09:59→10:06)
--- NOTE | 2024-07-09 09:59 | P.CONAN_ITS ---
Documented by User: Xenia Vigil NP 07/05/24 13:35 HPI - Anesthesia Eval Consult details Narrative: 73yo M for Left Cataract Extraction IOL Insertion No previous cataract on record [facility] Active Problems Active Problems: All Active Problems Pre-op evaluation (Acute) Low back pain (Acute) Colon cancer screening (Acute) Cataract (Acute) Mild obstructive sleep apnea (Acute) Pulmonary nodule (Acute) Bipolar disorder (Acute) Coronary artery disease (Acute) Hypertension (Acute) Hypercholesterolemia (Acute) Hypothyroid (Acute) Impaired glucose tolerance (Acute) Anemia (Acute) COPD (chronic obstructive pulmonary disease) (Acute) Allergic rhinitis (Acute) Personal history of nicotine dependence (Acute) GERD (gastroesophageal reflux disease) (Acute) Hypersomnia (Acute) Obesity (BMI 30-39.9) (Acute) Past Medical History Medical History (Updated 07/04/24 @ 11:10 by Belen Goncalves, TOPHER) Cataracts, bilateral Hypersomnia COPD (chronic obstructive pulmonary disease) Personal history of nicotine dependence Allergic rhinitis Cervical spine fracture GERD (gastroesophageal reflux disease) Pulmonary nodule Vitamin D deficiency Obesity (BMI 30-39.9) Hypothyroid Bipolar disorder PTSD (post-traumatic stress disorder) Coronary artery disease Impaired glucose tolerance Hypercholesterolemia Anemia Hypertension Family History Family History Father CAD (coronary artery disease) Myocardial infarction CVD (cardiovascular disease) Mother No problems noted. Brother In good health Sister In good health Maternal Aunt Lung cancer Surgical History Surgical History History of cervical spinal surgery History of surgery H/O nasal polyp History of surgery on arm History of tooth extraction Social History Social History Housing: Apartment Alcohol intake: current Alcohol intake frequency: a few times a week Patient Tobacco Use Status: Former Tobacco user Tobacco use type: Cigarette e-Cigarette/Vaping Use: Never Used Second Hand Smoke Exposure: Yes Are you DNR?: No Advance Directives: No Advance Directives Information Provided: Yes Advance Directives on File: No service: Yes Current occupational status: retired Cognitive needs: No Hearing needs: No Vision needs: Yes Meds Allergies Allergy/AdvReac Type Severity Reaction Status Date / Time azithromycin [AZITHROMYCIN] Allergy Intermediate Unknown Verified 07/09/24 09:38 divalproex sodium Allergy Unknown Hair loss Verified 07/09/24 09:38 [From Depakote] erythromycin base Allergy Unknown Anaphylaxis Verified 07/09/24 09:38 [ERYTHROMYCIN BASE] lithium Allergy Unknown Thyroid Verified 07/09/24 09:38 disorder trazodone Allergy Unknown priapism Verified 07/09/24 09:38 atorvastatin AdvReac Intermediate myalgia Verified 07/09/24 09:38 lisinopril AdvReac Intermediate Cough Verified 07/09/24 09:38 Exam Height,Weight and Vital Signs: Height 5 ft 11 in Weight 95.708 kg Assessment and Plan Assessment Anesthesia Assessment: Chart Reviewed Documented by User: Ayesha Ashley DO 07/09/24 10:00 [facility] Past Medical History Medical History (Updated 07/04/24 @ 11:10 by Belen Goncalves, RN) Cataracts, bilateral Hypersomnia COPD (chronic obstructive pulmonary disease) Personal history of nicotine dependence Allergic rhinitis Cervical spine fracture GERD (gastroesophageal reflux disease) Pulmonary nodule Vitamin D deficiency Obesity (BMI 30-39.9) Hypothyroid Bipolar disorder PTSD (post-traumatic stress disorder) Coronary artery disease Impaired glucose tolerance Hypercholesterolemia Anemia Hypertension Family History Family History Father CAD (coronary artery disease) Myocardial infarction CVD (cardiovascular disease) Mother No problems noted. Brother In good health Sister In good health Maternal Aunt Lung cancer Family history of problems with anesthesia: No Surgical History Surgical History History of cervical spinal surgery History of surgery H/O nasal polyp History of surgery on arm History of tooth extraction History of Problems with Anesthesia: No Social History Social History Housing: Apartment Alcohol intake: current Alcohol intake frequency: a few times a week Patient Tobacco Use Status: Former Tobacco user Tobacco use type: Cigarette e-Cigarette/Vaping Use: Never Used Second Hand Smoke Exposure: Yes Are you DNR?: No Advance Directives: No Advance Directives Information Provided: Yes Advance Directives on File: No service: Yes Current occupational status: retired Cognitive needs: No Hearing needs: No Vision needs: Yes Meds Allergies Allergy/AdvReac Type Severity Reaction Status Date / Time azithromycin [AZITHROMYCIN] Allergy Intermediate Unknown Verified 07/09/24 09:38 divalproex sodium Allergy Unknown Hair loss Verified 07/09/24 09:38 [From Depakote] erythromycin base Allergy Unknown Anaphylaxis Verified 07/09/24 09:38 [ERYTHROMYCIN BASE] lithium Allergy Unknown Thyroid Verified 07/09/24 09:38 disorder trazodone Allergy Unknown priapism Verified 07/09/24 09:38 atorvastatin AdvReac Intermediate myalgia Verified 07/09/24 09:38 lisinopril AdvReac Intermediate Cough Verified 07/09/24 09:38 Exam Exam Date and Time: 07/09/24 0955 Height,Weight and Vital Signs: Height 5 ft 11 in Weight 95.708 kg Vital Signs Temperature 97.2 F 07/09/24 09:54 Pulse Rate 76 07/09/24 09:54 Respiratory Rate 18 07/09/24 09:54 Blood Pressure 133/67 07/09/24 09:54 Pulse Oximetry 98 07/09/24 09:54 Oxygen Delivery Method Room Air 07/09/24 09:54 Temperature 97.2 F 07/09/24 09:54 Pulse Rate 76 07/09/24 09:54 Respiratory Rate 18 07/09/24 09:54 Blood Pressure 133/67 07/09/24 09:54 Pulse Oximetry 98 07/09/24 09:54 Oxygen Delivery Method Room Air 07/09/24 09:54 Airway Mallampati Class: II TM Dist: >3cm Neck ROM: Full Loose/Missing/Broken Teeth: No (patient denies any loose or broken teeth ) Heart: S1S2 Lungs: CTAB Assessment and Plan Assessment Anesthesia Assessment: Anesthesia Plan Discussed and Chart Reviewed Final Anesthetic Review Family History of Problems with Anesthesia: No History of Problems with Anesthesia: No NPO: Yes ASA Class: III Final Preanesthetic Review: No Changes in Pt Med Stat, Meds/Allgs Chart Reviewed, Consent Obtained/Reviewed and Anes Risks/Benef Reviewed Patient Risk: Intermediate Procedure Risk: Low Anesthetic Plan Anesthetic Plan: MAC: and Agree w/ Assess. and Plan Disposition: Standard PACU
[2024-07-09] MEDS: Lactated Ringers 500 ML 50 ML IV (10:04)
--- NOTE | 2024-07-09 10:14 | MHC.SHP ---
Pre-Procedural Eval Section A - 24 Hr Update-Section A only Date of Service: 07/09/24 The patient is an INPATIENT: No Changes since office visit: No Cold of Flu in the past 2 weeks, No New Medical Problems, No Changes in Medication and No Patient answered all questions The patient has been examined within 24 hours of the surgical procedure. The History & Physical has been completed within 30 days and I have reviewed it.: Yes Section B - Complete if H&P > 30 days Chief Complaint: Age-related nuclear cataract, left eye Allergies: Allergies Allergy/AdvReac Type Severity Reaction Status Date / Time azithromycin [AZITHROMYCIN] Allergy Intermediate Unknown Verified 07/09/24 09:38 divalproex sodium Allergy Unknown Hair loss Verified 07/09/24 09:38 [From Depakote] erythromycin base Allergy Unknown Anaphylaxis Verified 07/09/24 09:38 [ERYTHROMYCIN BASE] lithium Allergy Unknown Thyroid Verified 07/09/24 09:38 disorder trazodone Allergy Unknown priapism Verified 07/09/24 09:38 atorvastatin AdvReac Intermediate myalgia Verified 07/09/24 09:38 lisinopril AdvReac Intermediate Cough Verified 07/09/24 09:38 Plan Diagnosis/Plan: Unchanged I have reviewed the history and physical and performed a pertinent physical examination on my patient. No changes have occurred unless specified. Time Spent With Patient Time: Total time managing care of this patient today ____ minutes.
--- NOTE | 2024-07-09 10:14 | HO.PNOPHT ---
Ophthalmology Procedure Procedure Date of Service: 07/09/24 Ophthalmology Viscoelastic: Healon Duet Dual Pack Pro Ophthalmology Lenses: IOL Acrysof MP - MA60AC (21.5) Procedure Notes: PREOPERATIVE DIAGNOSIS: Decreased visual acuity left eye secondary to cataract POSTOPERATIVE DIAGNOSIS: Same PROCEDURE: Left cataract extraction with intraocular lens insertion SURGEON: Murray Graay M.D. ANESTHESIA: Topical/MAC ESTIMATED BLOOD LOSS: None COMPLICATIONS: None After obtaining informed consent, the patient was brought to the operation room suite and placed in the supine position. After adequate sedation per anesthesia, topical drops of Tetracaine were given to the left eye. The eye was then prepped and draped in the usual sterile fashion. The operating room microscope was then positioned over the operative eye and a lid speculum placed. A paracentesis was created. Viscoelastic was then instilled into the anterior chamber. A three plane incision was then created temporally, utilizing a 2.85 mm keratome. Capsulotomy forceps were then utilized to create a circular tear capsulotomy. Hydrodissection and hydrodelineation were carried out until adequate mobilization of the nucleus occurred. Phacoemulsification was then utilized to remove the dense central nucleus followed by removal of the cortical material utilizing the automated aspiration irrigation unit. Viscoat elastic was instilled into the posterior capsular bag followed by placement of a posterior chamber intraocular lens without difficulty. The residual Viscoat elastic was then removed utilizing the automated IA machine. The wound was check and found to be watertight. The patient tolerated the procedure well and the lid speculum was removed. Intracameral injection of Vigamox 0.1 mL followed by a subtenon injection of Kenalog-40 0.2 mL were administered. The patient will be seen in the a.m.
[2024-07-09 10:38] VITALS: BP 124/54; PULSE 73; RESP 18; TEMP 36.9; O2SAT 98
== END 2024-07-09 10:42 | disposition home or self-care (01) ==
PROVIDERS: PCP Internal Medicine; Visit Provider Ophthalmology
PROC: (CPT 66985; principal; 2024-07-09 11:00)
DX: H25.12 Age-related nuclear cataract, left eye (principal); H52.4 Presbyopia; H18.413 Arcus senilis, bilateral; I10 Essential (primary) hypertension; E03.9 Hypothyroidism, unspecified; E78.00 Pure hypercholesterolemia, unspecified; K21.9 Gastro-esophageal reflux disease without esophagitis; J44.9 Chronic obstructive pulmonary disease, unspecified; E66.9 Obesity, unspecified; R73.02 Impaired glucose tolerance (oral); G47.33 Obstructive sleep apnea (adult) (pediatric); Z79.82 Long term (current) use of aspirin; Z79.51 Long term (current) use of inhaled steroids; Z79.899 Other long term (current) drug therapy; Z88.1 Allergy status to other antibiotic agents; Z88.8 Allergy status to other drugs, medicaments and biological substances; Z87.891 Personal history of nicotine dependence
CPT/HCPCS: 66984; J2250; J3301; V2630

== ENCOUNTER 2024-07-23 07:47 | Day surgery (SDC) | payer OTHER, SELFPAY ==
--- OUTSIDE RECORDS SUMMARY | 2024-06-13 07:53 | XMS_ITS ---
Author Organization [facility] Address [address] [place] [address] Care Team Providers Care Mirror Polisher Name Role Phone Phuc Alvarez Primary Care Provider Vilma Torres [phone] REASON FOR VISIT Rs 08/22/24 Appt Encounters Encounter Location Date Provider Diagnosis [address] [place] [address] 06/12/2024 Vilma Mcqueen Plan Of Treatment Next Appt Details Provider Name:Vilma lewis, 09/04/2024 02:45:00 PM, [address] [place], [phone], Progress Notes * Konrad VARELADOB:1950 ([age] yo M)Acc No.[id number]:06/12/2024 Patient:?ANYKonrad HOPKINS :1950???Age:73 Y???Sex:Male Address:[address] [facility], [address], [place], [address] * true * Date:? Generated for Imani goldberg/Ronel/eTransmitting on:?06/13/2024 07:53 AM EST
--- OUTSIDE RECORDS SUMMARY | 2024-06-13 07:53 | XMS_ITS | Clinical Summary ---
Author Organization [facility] Address [address] [place] [address] Care Team Providers Care Supervisor Fabrication Department Name Role Phone Unavailable Primary Care Provider Unavailabl e Immunizations Name Administration Dates Next Due COVID-19, mRNA (Moderna Pre Fall 2022) Monovalent, 100 mcg/0.5 ml or 50 mcg/0.25 ml dose 02/12/2021,07/30/2020,07/02/2020 Influenza,high dose seasonal,trivalent,PF (Fluzone HD) 01/31/2019,02/09/2018,01/21/2017,2015 Influenza,high-dose, Quadrivalent 12/29/2020, Influenza,injectable,quad,Prsrv Fr 02/26/2020 PCV-13 03/05/2016 PPV23 (Pneumovax) 04/07/2020 Zoster (Shingrix) 05/18/2019,04/02/2019 Social History Tobacco Use Types Packs/Day Years Used Date Smoking Tobacco: Never Assessed Intimate Partner Violence Answer Date R ecorded Fear of Current or Ex-Partner Not on file Emotionally Abused Not on file 12/01/2022 Physically Abused Not on file 12/01/2022 Sexually Abused Not on file 12/01/2022 Feel Safe at Home Not on file 12/01/2022 Sex and Gender Information Value Date Recorded Sex Assigned at Not on file Legal Sex Male 12:56 PM EDT Gender Identity Not on file Sexual Orientation Not on file Plan of Treatment Health Maintenance Due Date Last Done Comments Hepatitis C Screening 1950 DTaP/Tdap/Td (1 - Tdap) 12/22/1967 Colon Cancer Screening 1994 COVID-19 Vaccine ( season) 2023 02/12/2021, 07/30/2020, 07/02/2020 Influenza (#1) 2023 12/29/2020, 03/19, 02/26/2020, Additional history exists RSV (1 - 1-dose 75+ series) 2024 Zoster (Shingrix) Completed 05/18/2019, 04/02/2019 Pneumococcal 50+ years Completed 04/07/2020, 2015 Abdominal Aorta Imaging Discontinued HPV Vaccine Aged Out No longer eligi ble based on patient's age to complete this topic Hep A Aged Out No longer eligi ble based on patient's age to complete this topic Hep B Aged Out No longer eligi ble based on patient's age to complete this topic Hib Aged Out No longer eligi ble based on patient's age to complete this topic Meningococcal ACWY Aged Out No longer eligible based on patient's age to complete this topic Zoster (Zostavax) Discontinued
--- OUTSIDE RECORDS SUMMARY | 2024-06-13 07:53 | XMS_ITS ---
Author Organization [facility] Address [address] [place] [address] Care Team Providers Care Commercial Lending Vice President Name Role Phone Phuc Alvarez Primary Care Provider Vilma Torres Unavailable [phone] Barbara Rubi [phone] Champion Encounters Encounter Location Date Provider Diagnosis [facility] [address] [place] [address] 05/31/2024 Barbara Rubi Plan Of Treatment Next Appt Details Provider Name:Vilma lewis, 09/04/2024 02:45:00 PM, [address] [place], [address], Progress Notes * Konrad JUDGEDOB:1950 ([age] yo M)Acc No.[id number]:05/31/2024 Progress Note Patient:?Konrad JUDGE Provider:?Barbara Rubi DPM :1950???Age:73 Y???Sex:Male Manpreet e:05/31/2024 Address:[address] [place] [address] [address], [place], [place] Pcp:Phuc Alvarez Subjective: * Chief Complaints: * ???1. Dr Champion. * Medical History:? Objective: * Vitals:? Assessment: Plan: * Treatment: * Images: * The named appointment provid er may or may not be the originator of this progress note, and it is not deemed complete until electronically signed by the appointment provider. Sign off status: Pending * Provider:?Barbara Rubi DPM Date:?0 05/31/2024 Generated for Imani goldberg/Ronel/Kushal on:?06/13/2024 07:53 AM EST
--- OUTSIDE RECORDS SUMMARY | 2024-06-13 07:53 | XMS_ITS | Patient Health Record ---
Author Organization [facility] Address [address] [place] [address] Care Team Providers Care Fuel Cell Technician Name Role Phone Phuc Alvarez Primary Care Provider UnavailVilma Arias Unavailable [phone] Sawyer Molina Unavailable [phone] Barbara Rubi Unavailable [phone] Allergies Allergen (clinical drug ingredient) Drug/Non Drug Allergy documented on EMR Reaction Allergy Type Onset Date Status azithromycin Zithromax Z-Joaquín anaphylaxis Drug Allergy Active erythromycin Erythromycin anaphylaxis Drug Allergy Active Reason For Referral No Information Medications Medication SIG (Take, Route, Frequency, Duration) Notes Start Date End Date Status Melatonin 3 MG 1 tablet at bedtime as needed Orally Once a day Active Acetaminophen 500 MG 1 capsule as needed Orally every 6 hrs Active Banophen 50 MG 1 capsule at bedtime as needed Orally Once a day for 30 day(s) Benadryl Active Reguloid 400mg capsule Active Cetirizine HCl 10 MG 1 tablet Orally Once a day for 30 day(s) Active Rosuvastatin Calcium 40 MG 1 tablet Orally Once a day for 30 day(s) Active ALPRAZolam 0.25 MG 1 tablet Orally Twice a day Active Aspir-Low 81 MG 1 tablet Orally Once a day for 30 day(s) Active Omeprazole 20 MG 1 capsule 30 minutes before morning meal Orally Once a day for 30 day(s) Active Ezetimibe 10 MG 1 tablet Orally Once a day for 30 day(s) Active Vitamin D Active FeroSul 325 (65 Fe) MG 1 tablet Orally Once a day for 30 day(s) Active Acyclovir 400 MG 1 tablet Orally Twice a day for 10 day(s) 03/22/2024 Active Cerovite Senior - as directed Orally Active Senna-Plus 8.6-50 MG 1 tablet in the evening as needed Orally Once a day for 30 day(s) Active Docusate Sodium 100 MG 1 capsule as needed Orally Once a day for 30 day(s) Active traMADol HCl 50 MG 1 tablet as needed Orally Once a day Active Levothyroxine Sodium 125 MCG 1 tablet in the morning on an empty stomach Orally Once a day for 30 day(s) Active Ciclopirox Olamine 0.77 % 1 application Externally Twice a day to skin of feet including between the toes for 30 days Active Lisinopril 40 MG 1 tablet Orally Once a day for 30 day(s) Active Fluticasone Propionate 50 MCG/ACT 1 spray in each nostril Nasally Once a day for 30 day(s) Active Amoxicillin-Pot Clavulanate 875 875-125 MG one tab Orally every 12 hrs for 10 day(s) Not-Taking hydroCHLOROthiazide 12.5 MG 1 capsule in the morning Orally Once a day for 30 day(s) Active Immunizations Vaccine Route Administration Date [facility] Moderna Vaccine Unknown 02/12/2021 Administered 1st 07/02/2020 2nd 07/30/2020 Social History Tobacco Use: Social History Observation Description Date Details (start date - stop date) Never Smoker NA - NA Alcohol Screen Question Answer Notes Did you have a drink containing alcohol in the p ast year? Yes Points 0 Interpretation Negative Tobacco use other than smoking: Question Answer Notes Are you an other tobacco user? 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, bilateral legs (I70.203) Active confirmed Vital Signs Blood pressure diastolic 60 mm Hg 06/05/2024 Height 8zs74dn in 06/05/2024 Blood pressure systolic 110 mm Hg 06/05/2024 Weight 205 lbs 06/05/2024 BMI 28.59 kg/m2 06/05/2024 Procedures Procedure Date Ordered Date Performed Result Body Sit e 87678-FQSRQVH NAIL, 6 OR MORE 03/22/2024 N/A 85263-ADFC SKIN LESIONS, 2 TO 4 03/22/2024 N/A Encounters Encounter Location Date Provider Diagnosis [address] [address] 06/27/2023 Sawyer Molina Tinea unguium B35.1 ; Pain in right toe(s) M79.674 ; Pain in left toe(s) M79.675 ; Unspecified atherosclerosis of rosebud arteries of extremities, bilateral legs I70.203 and Xerosis cutis L85.[address] [address] 09/19/2023 Sawyer Molina Tinea unguium B35.1 ; Pain in right toe(s) M79.674 ; Pain in left toe(s) M79.675 ; Unspecified atherosclerosis of rosebud arteries of extremities, bilateral legs I70.203 and Xerosis cutis L85.[address] [address] 12/14/2023 Sawyer Molina Tinea unguium B35.1 ; Pain in right toe(s) M79.674 ; Pain in left toe(s) M79.675 ; Unspecified atherosclerosis of rosebud arteries of extremities, bilateral legs I70.203 and Xerosis cutis L85.[address] [address] 03/22/2024 Barbara Elicia Tinea unguium B35.1 ; Type 2 diabetes mellitus with diabetic polyneuropathy E11.42 and Unspecified atherosclerosis of rosebud arteries of extremities, bilateral legs I70.[address] [address] 06/05/2024 Vilma Mcqueen Type 2 diabetes mellitus with diabetic polyneuropathy E11.42 ; Tinea pedis of both feet B35.3 ; Tinea unguium B35.1 and Unspecified atherosclerosis of rosebud arteries of extremities, bilateral legs I70.203 [place] [address] [place] [phone] 06/12/2024 Vilma Mcqueen Assessments Encounter Date Diagnosis (ICD Code) Assessment Notes Treatment Notes Treatment Clinical Notes Section Notes 06/27/2023 Tinea unguium (ICD-10 - B35.1) 06/27/2023 Pain in right toe(s) (ICD-10 - M79.674) 09/19/2023 Tinea unguium (ICD-10 - B35.1) 12/14/2023 Tinea unguium (ICD-10 - B35.1) 03/22/2024 Type 2 diabetes mellitus with diabetic polyneuropathy (ICD-10 - E11.42) 03/22/2024 Tinea unguium (ICD-10 - B35.1) 06/05/2024 Type 2 diabetes mellitus with diabetic polyneuropathy (ICD-10 - E11.42) 06/05/2024 Tinea pedis of both feet (ICD-10 - B35.3) 06/05/2024 Tinea unguium (ICD-10 - B35.1) 03/22/2024 Unspecified atherosclerosis of rosebud arteries of extremities, bilateral legs (ICD-10 - I70.203) 12/14/2023 Pain in right toe(s) (ICD-10 - M79.674) 09/19/2023 Pain in right toe(s) (ICD-10 - M79.674) 06/27/2023 Pain in left toe(s) (ICD-10 - M79.675) 06/27/2023 Unspecified atherosclerosis of rosebud arteries of extremities, bilateral legs (ICD-10 - I70.203) 09/19/2023 Pain in left toe(s) (ICD-10 - M79.675) 12/14/2023 Pain in left toe(s) (ICD-10 - M79.675) 06/05/2024 Unspecified atherosclerosis of rosebud arteries of extremities, bilateral legs (ICD-10 - I70.203) 12/14/2023 Unspecified atherosclerosis of rosebud arteries of extremities, bilateral legs (ICD-10 - I70.203) 09/19/2023 Unspecified atherosclerosis of rosebud arteries of extremities, bilateral legs (ICD-10 - I70.203) 06/27/2023 Xerosis cutis (ICD-10 - L85.3) 09/19/2023 Xerosis cutis (ICD-10 - L85.3) 12/14/2023 Xerosis cutis (ICD-10 - L85.3) Plan Of Treatment Pending Test Test Name Order Date 49685-ZQRIZUV NAIL, 6 OR MORE 03/22/2024 58828-JYJW SKIN LESIONS, 2 TO 4 03/22/20 24 10648-IFKD SKIN LESIONS, 2 TO 4 06/15/19 14818-RZGS SKIN LESIONS, 2 TO 4 09/10/19 Next Appt Details Provider Name:Vilma lewis, 09/04/2024 02:45:00 PM, [address] [place], [address], Insurance Providers Payer Name Payer Address Payer Phone Subscriber Number Group Number Insured Name Patient Relationship to Insured Coverage Start Date Coverage End Date [employer] [facility] [employer] Claims [address] [facility] [place]ur [address] [id number] Konrad Varela Self - patient is the insured Medical (General) History Medical History History ICD Code Back,Hip,and Knee pain Broken bones CAD (Cholesterol) Cataracts High blood pressure Reflux ( GERD) thyroid Measles Mumps Chicken pox Joint implants/screws atrial sclerosis Surgical History Surgery Date(Month/Year) neck surgery 2019? nose 2000
--- OUTSIDE RECORDS SUMMARY | 2024-06-13 07:54 | XMS_ITS ---
[facility] Address [address] [place] [address] Care Team Providers Care Plumber'S Assistant Name Role Phone Phuc Alvarez Primary Care Provider Vilma Torres Unavailable [phone] Allergies Allergen (clinical drug ingredient) Drug/Non Drug Allergy documented on EMR Reaction Allergy Type Onset Date Status azithromycin Zithromax Z-Joaquín anaphylaxis Drug Allergy Active erythromycin Erythromycin anaphylaxis Drug Allergy Active REASON FOR VISIT At Risk Footcare, Skin Problem Medications Medication SIG (Take, Route, Frequency, Duration) Notes Start Date End Date Status Vitamin D Active Acyclovir 400 MG 1 tablet Orally Twice a day for 10 day(s) 03/22/2024 Active traMADol HCl 50 MG 1 tablet as needed Orally Once a day Active Ciclopirox Olamine 0.77 % 1 application Externally Twice a day to skin of feet including between the toes for 30 days Active Amoxicillin-Pot Clavulanate 875 875-125 MG one tab Orally every 12 hrs for 10 day(s) Not-Taking Reguloid 400mg capsule Active Rosuvastatin Calcium 40 MG 1 tablet Orally Once a day for 30 day(s) Active Omeprazole 20 MG 1 capsule 30 minutes before morning meal Orally Once a day for 30 day(s) Active Senna-Plus 8.6-50 MG 1 tablet in the evening as needed Orally Once a day for 30 day(s) Active Lisinopril 40 MG 1 tablet Orally Once a day for 30 day(s) Active Ezetimibe 10 MG 1 tablet Orally Once a day for 30 day(s) Active FeroSul 325 (65 Fe) MG 1 tablet Orally Once a day for 30 day(s) Active Levothyroxine Sodium 125 MCG 1 tablet in the morning on an empty stomach Orally Once a day for 30 day(s) Active Fluticasone Propionate 50 MCG/ACT 1 spray in each nostril Nasally Once a day for 30 day(s) Active hydroCHLOROthiazide 12.5 MG 1 capsule in the morning Orally Once a day for 30 day(s) Active Banophen 50 MG 1 capsule at bedtime as needed Orally Once a day for 30 day(s) Benadryl Active Cetirizine HCl 10 MG 1 tablet Orally Once a day for 30 day(s) Active Aspir-Low 81 MG 1 tablet Orally Once a day for 30 day(s) Active Cerovite Senior - as directed Orally Active Docusate Sodium 100 MG 1 capsule as needed Orally Once a day for 30 day(s) Active Melatonin 3 MG 1 tablet at bedtime as needed Orally Once a day Active Acetaminophen 500 MG 1 capsule as needed Orally every 6 hrs Active ALPRAZolam 0.25 MG 1 tablet Orally Twice a day Active Social History Tobacco Use: Social History Observation Description Date Details (start date - stop date) Never Smoker NA - NA Tobacco use other than smoking: Question Answer Notes Are you an other tobacco user? No Tobacco Control (Standard) Question Answer Notes Tobacco use: Nonsmoker Vital Signs Height [id number] in 06/05/2024 Weight 205 lbs 06/05/2024 BMI 28.59 kg/m2 06/05/2024 Blood pressure systolic 110 mm Hg 06/05/19 25 Blood pressure diastolic 60 mm Hg 025 Encounters Encounter Location Date Provider Diagnosis [facility] [address] [place] [address] 06/05/2024 Vilma Mcqueen Type 2 diabetes mellitus with diabetic polyneuropathy E11.42 ; Tinea pedis of both feet B35.3 ; Tinea unguium B35.1 and Unspecified atherosclerosis of [place] arteries of extremities, bilateral legs I70.203 Assessments Encounter Date Diagnosis (ICD Code) Assessment Notes Treatment Notes Treatment Clinical Notes Section Notes 06/05/2024 Type 2 diabetes mellitus with diabetic polyneuropathy (ICD-10 - E11.42) 06/05/2024 Tinea pedis of both feet (ICD-10 - B35.3) 06/05/2024 Tinea unguium (ICD-10 - B35.1) 06/05/2024 Unspecified atherosclerosis of [place] arteries of extremities, bilateral legs (ICD-10 - I70.203) Plan Of Treatment Medication Medication Name Sig Start Date Stop Date Notes Ciclopirox Olamine 0.77 % 1 application Externally Twice a day to skin of feet including between the toes for 30 days Next Appt Details Follow Up: 3 Months, Reason: Provider Name:Vilma lewis, 09/04/2024 02:45:00 PM, [address] [place] [address], [phone], Procedure Notes * Category Sub-Category Detail Notes Debride Nail 6-10 Nail debridement Due to the cl inical pathology outlined in the exam findings, performance of this nail treatment is medically necessary as its management by an unskilled/untrained nonprofessional would put this patients foot and overall health at risk. Therefore, debridement to affected nail(s), as described in exam ( TA, T1, T2, T3, T4, T5, T6, T7, T8, T9, ), was performed exclusively by the physician of record to reduce/remove overall nail length, girth, thickness, subungual debris, and necrotic tissue, by manual and/or electrical means through the use of a nail nipper and/or dremel-type broach grinder, to a more viable healthy nail plate or bed tissue 6-10 nails in total. Silver nitrate was used for any petechial bleeding as necessary. Definitive antifungal treatment options, both pharmaceutical and surgical, have been reviewed and discussed with the patient. The patient solely prefers the use of intermittent/as needed professional debridement services for their nail condition and understands the need for additional periodic treatments to maintain effectiveness in symptomatic relief - 60235 Keratoma Treatment Parring or Cutting o f Benign Hyperkeratotic Lesion(s) (-57) More than 4 Lesions - Due to the at risk nature of the patients medical condition as documented in the exam findings, performance of this keratoderma treatment is medically necessary as its management by an unskilled/untrained nonprofessional would put this patients foot and overall health at risk. Therefore, the benign hyperkeratotic lesions, ( 6 ) in total, locations as stated and described in the exam ( plantar heels B/L, sub 1st metatarsal head B/L TA, T5, ), were pared, and/or cut utilizing a sterile 15 blade, tissue nippers, and/or power dremel instrumentation by the physician of record - 82159 Progress Notes * Konrad VARELADOB:1950 ([age] yo M)Acc No.[id number]:06/05/2024 Progress Note Patient:Konrad BATES Provider:?Vilma Mcqueen DPM :1950???Age:73 Y???Sex:Male Manpreet e:06/05/2024 Address:[address] [place] [address] [address], [place] [phone] Pcp:Phuc Alvarez Subjective: * Chief Complaints: * ???At Risk FootcareSkin Prob liz * HPI: ???At Risk footcare:?Pt States Last PCP Visit:?Date?04/18/2024 ???Skin problems:?Nature:?scaling , redness.?Location:?B/L .?Duration:?several days.?Course:?worse.? * ROS:?General/Constitutional:?Nausea?denies.?Vomiting?denies.?Hunger Thirst?denies.?Loss appetite?denies.?Chills?denies.?Fatigue?denies.?Fever?denies.?Night Sweats?denies.?Unexplained weight loss?denies.?Unexplained weight gain?denies.?HEENTM:?Dentures?denies.?Dizziness?denies.?Glasses/contacts?admits.?Retinopathy?de nies.?Blurred/double vision?denies.?TMJ?denies.?Discharge/drainage?denies.?Implants?denies.?Sore throat?denies.?Dental implants?denies.?Hard of hearing ?denies.?Difficulty chewing/swallowing/speaking?denies.?Nose bleeds?denies.?Sore mouth?denies.?Respiratory:?On Oxygen?denies.?Pneumonia/pleurisy?denies.?Bronchitis?denies.?Emphysema?denies.?C oughing?denies.?Cough blood?denies.?Shortness of breath?denies.?Wheezing?denies.?Cardiovascular:?Pacemaker?denies.?MVP?denies.?WPW?denies.?CHF?denies.?Heart attack?denies.?Septal defect?denies.?Rapid beat?denies.?Chest pain ?denies.?Atrial Fib.?denies.?Murmur/Palpitations?denies.?Gastrointestinal:?Hemorrhoids?denies.?Stomach/Abdominal pain?denies.?Dark blood stool?denies.?Irritable bowel ?denies.?Constipation?denies.?Diarrhea?denies.?Hematology:?Swelling?admits.?Clots?denies.?Varicose Veins?denies.?Bruising?denies.?Bleeding problem?denies.?Genitourinary:?Blood urine?denies.?Frequent/Painfu/urination/bladder control?denies.?Kidney stones?denies.?Infection (UTI)?denies.?Nephropathy?denies.?sex trans dis (STD)?denies.?Prostate?denies.?Musculoskeletal:?Hammertoes?denies.?Bunions?denies.?Back Pain?denies.?Muscle Cramps/ Resting?denies.?Muscle cramps / walking?denies.?Generalized aches and pains?denies.?Weakness?denies.?Integ.:?Stewart?denies.?Scars?denies.?Corns/calluses?admits.?Ingrown nails?denies.?Painful nails?denies.?Open Sores?denies.?Rashes?denies.?Neurologic:?Difficulty sleeping?admits.?Brain disorder?denies.?Numbness?admits.?Balance trouble?denies.?Confusion?denies.?Fainting/blackouts?denies.?Tingling?admits.?Tr emors?denies.? * Medical History:? * Surgical History:?neck surge ry 2020?nose 2001 * Hospitalization/Major Diagno stic Procedure:?Denies Past Hospitalization * Family History:?Mother: johnson woo.?Father: .? * Social History:?Tobacco Use:?Tobacco use other than smoking?Are you an other tobacco user??No ?Tobacco Control (Standard)?Tobacco use:?Nonsmoker ???Miscellaneous:?Caffeine: yes, frequency:, 1-2 cups per day coffee, tea. ?Children: no. ?Exercise: yes, walking dog. ?Marital status: . ?Occupation: Retired-, /[employer]. * Medications:?TakingMelatonin 3 MG Tablet 1 tablet at bedtime as needed Orally Once a day Acetaminophen 500 MG Capsule 1 capsule as needed Orally every 6 hrs ALPRAZolam 0.25 MG Tablet 1 tablet Orally Twice a day Aspir-Low 81 MG Tablet Delayed Release 1 tablet Orally Once a day Banophen 50 MG Capsule 1 capsule at bedtime as needed Orally Once a day , Notes to Pharmacist: BenadrylCetirizine HCl 10 MG Tablet 1 tablet Orally Once a day Cerovite Senior - Tablet as directed Orally Docusate Sodium 100 MG Capsule 1 capsule as needed Orally Once a day Ezetimibe 10 MG Tablet 1 tablet Orally Once a day FeroSul 325 (65 Fe) MG Tablet 1 tablet Orally Once a day Fluticasone Propionate 50 MCG/ACT Suspension 1 spray in each nostril Nasally Once a day hydroCHLOROthiazide 12.5 MG Capsule 1 capsule in the morning Orally Once a day Levothyroxine Sodium 125 MCG Tablet 1 tablet in the morning on an empty stomach Orally Once a day Lisinopril 40 MG Tablet 1 tablet Orally Once a day Omeprazole 20 MG Capsule Delayed Release 1 capsule 30 minutes before morning meal Orally Once a day Reguloid , Notes to Pharmacist: 400mg capsuleRosuvastatin Calcium 40 MG Tablet 1 tablet Orally Once a day Senna-Plus 8.6-50 MG Tablet 1 tablet in the evening as needed Orally Once a day traMADol HCl 50 MG Tablet 1 tablet as needed Orally Once a day Vitamin D Acyclovir 400 MG Tablet 1 tablet Orally Twice a day Taking Melatonin 3 MG Tablet 1 tablet at bedtime as needed Orally Once a day Taking Acetaminophen 500 MG Capsule 1 capsule as needed Orally every 6 hrs Taking ALPRAZolam 0.25 MG Tablet 1 tablet Orally Twice a day Taking Aspir-Low 81 MG Tablet Delayed Release 1 tablet Orally Once a day Taking Banophen 50 MG Capsule 1 capsule at bedtime as needed Orally Once a day , Notes to Pharmacist: OjadryWin Cetirizine HCl 10 MG Tablet 1 tablet Orally Once a day Taking Cerovite Senior - Tablet as directed Orally Taking Docusate Sodium 100 MG Capsule 1 capsule as needed Orally Once a day Taking Ezetimibe 10 MG Tablet 1 tablet Orally Once a day Taking FeroSul 325 (65 Fe) MG Tablet 1 tablet Orally Once a day Taking Fluticasone Propionate 50 MCG/ACT Suspension 1 spray in each nostril Nasally Once a day Taking hydroCHLOROthiazide 12.5 MG Capsule 1 capsule in the morning Orally Once a day Taking Levothyroxine Sodium 125 MCG Tablet 1 tablet in the morning on an empty stomach Orally Once a day Taking Lisinopril 40 MG Tablet 1 tablet Orally Once a day Taking Omeprazole 20 MG Capsule Delayed Release 1 capsule 30 minutes before morning meal Orally Once a day Taking Reguloid , Notes to Pharmacist: 400mg capsuleTaking Rosuvastatin Calcium 40 MG Tablet 1 tablet Orally Once a day Taking Senna-Plus 8.6-50 MG Tablet 1 tablet in the evening as needed Orally Once a day Taking traMADol HCl 50 MG Tablet 1 tablet as needed Orally Once a day Taking Vitamin D Taking Acyclovir 400 MG Tablet 1 tablet Orally Twice a day Not-Taking/PRNAmoxicillin-Pot Clavulanate 875 875-125 MG Tablet one tab Orally every 12 hrs Medication List reviewed and reconciled with the patientNot-Taking/PRN Amoxicillin-Pot Clavulanate 875 875-125 MG Tablet one tab Orally every 12 hrs Medication List reviewed and reconciled with the patient * Allergies:?Erythromycin: adonay phylaxis - AllergyZithromax Z-Joaquín: anaphylaxis - Allergyyes[Allergies Verified] Objective: * Vitals:?Ht: 0kd45tm, Wt:205, BMI:28.59, Shoe size: 10, BP:110/60mm Hg, Ht-cm: 180.34 cm, Wt-k.99 kg. * Examination: ???General Examination: ?GENERAL APPEARANCE:?Reveals a pleasant, alert, well nourished, well- developed, well hydrated individual, who demonstrates proper attention to hygiene/body habitus, and is in no acute distress, Pt serves as own historian for office visit today.?ORIENTED:?person, place, and time.?Dermatologic: ?SKIN FINDINGS:?Skin exam reveals Keratotic lesion(s) located at plantar heels B/L, sub 1st metatarsal head B/L?TA, T5, Skin shows sign(s) of, erythema, scaling, in a moccasin fashion, no fissure(s) present, B/L.?Nails: ?NAILS are:?Elongated, overgrown, dystrophic, lytic, greater than 3mm thick, discolored and friable with crumbly malodorous subungual debris, with dull to no pain on palpation due to neuropathy , TA, T1, T2, T3, T4, T5, T6, T7, T8, T9.?Vascular: ?DP PULSES (B):?1/4, B/L.?PT PULSES (B):?1/4, B/L.?CAPILLARY FILL TIME:?immediate, all digits, B/L.?TROPHIC CONDITION-TEXTURE/ELASTICITY/TURGOR/HAIR GROWTH (B):?decreased, B/L.?TEMPERTURE GRADIENT (C):?normal, warm to cool, proximal to distal, B/L, B/L.?EDEMA (C):?absent, B/L.?PARESTHESIA (C):?absent, B/L.?BURNING (C):?absent, B/L.?Orthopedic: ?MUSCLE STRENGTH:?5/5 all groups in a symmetrical fashion, B/L.?Neurological: ?SENSORY:? Neurological exam demonstrates, reduced light touch sensation, reduced sharp/dull pin prick discrimination , B/L, 5.07 monofilament test performed at plantar aspects of 5 varied sites per foot shows sensation, reduced , B/L.? Assessment: * Assessment: 1.?Type 2 diabetes mellitus with diabetic polyneuropathy - E11.42???2.?Tinea pedis of both feet - B35.3 (Primary)???Specify :Acute problem, Uncomplicated (3),Rx drug management (4)???3.?Tinea unguium - B35.1???4.?Unspecified atherosclerosis of [place] arteries of extremities, bilateral legs - I70.203??? Plan: * Treatment: * Procedures:?Debride Nail 6-10:?Nail debridement?Due to the clinical pathology outlined in the exam findings, performance of this nail treatment is medically necessary as its management by an unskilled/untrained nonprofessional would put this patients foot and overall health at risk. Therefore, debridement to affected nail(s), as described in exam ( TA, T1, T2, T3, T4, T5, T6, T7, T8, T9, ), was performed exclusively by the physician of record to reduce/remove overall nail length, girth, thickness, subungual debris, and necrotic tissue, by manual and/or electrical means through the use of a nail nipper and/or dremel-type broach grinder, to a more viable healthy nail plate or bed tissue 6- 10 nails in total. Silver nitrate was used for any petechial bleeding as necessary. Definitive antifungal treatment options, both pharmaceutical and surgical, have been reviewed and discussed with the patient. The patient solely prefers the use of intermittent/as needed professional debridement services for their nail condition and understands the need for additional periodic treatments to maintain effectiveness in symptomatic relief - 89535.?Keratoma Treatment:?Parring or Cutting of Benign Hyperkeratotic Lesion(s)?(-57) More than 4 Lesions - Due to the at risk nature of the patients medical condition as documented in the exam findings, performance of this keratoderma treatment is medically necessary as its management by an unskilled/untrained nonprofessional would put this patients foot and overall health at risk. Therefore, the benign hyperkeratotic lesions, ( 6 ) in total, locations as stated and described in the exam (?plantar heels B/L, sub 1st metatarsal head B/L?TA, T5,?), were pared, and/or cut utilizing a sterile 15 blade, tissue nippers, and/or power dremel instrumentation by the physician of record - 25491.? * Procedure Codes:?96208 DEBRI DE NAIL, 6 OR MORE, Modifiers: XS 45671 TRIM SKIN LESIONS, OVER 4, Modifiers: XS * Preventive Medicine:? ??Counseling:?Discussion:?-13: Office or other outpatient visit for the evaluation and management of an established patient, which required a medically appropriate history and/or examination and LOW level of DECISION MAKING for: 1 STABLE ACUTE UNCOMPLICATED PROBLEM, 2 OR MORE MINOR PROBLEMS, OR 1 STABLE CHRONIC PROBLEM, THAT POSE(S) A LOW RISK FOR MORBIDITY/MORTALITY. The visit on the day of the encounter encompassed interpreting the data and educating the patient as to the nature of their condition, treatment options available according to their individual PMH, meds, allergies, and overall health/living conditions, as well as any potential risks or complications that may occur from a failure to adhere to, and participate in, the recommended course of therapy. The discussion included a complete verbal, and/or written explanation of the examination results, any x-rays taken, the proposed diagnosis, and outline of the treatment plan. A schedule for future care needs was also explained. The patient verbalized an understanding of the instructions at this time and agreed to be an active participant in their treatment. If the patient should think of any questions or concerns after the visit, I have encouraged the patient to call the office.?Tinea Pedis:?The patient was counseled on the diagnosis, potential etiologies, and treatment options for their skin condition. We discussed the risks and benefits of each option from performing no treatment, to utilizing OTC topical skin creams, prescription topical creams, customized compounded topical medications, and, if necessary, to utilize oral antifungal therapy. We discussed the advantages and disadvantages of each possible treatment and importance for adherence to all the recommended therapies for optimum success and avoid potential complications such as open sore/infection/possible hospitalization. We discussed the potential effectiveness of each topical preparation as well as each ones possible side effects and/or patient medication interactions if oral therapy is selected. Patient questions re: the advantages and disadvantages of each treatment choice, medication use/dosage, successful outcomes, and application consistency were reviewed and the patient verbalized that all answers were clearly understood. The patient was told they can help alleviate symptoms by utilizing moisture absorbant innersoles with activated charcoal and baking soda, applying antifungal sprays daily, aerating toe web spaces at night by putting cotton or lambs wool between the toes, alternating shoe gear daily if possible so they can dry out, changing socks at least once during the day, wearing well-ventilated shoes or sandals. The patient has decided to apply antifungal skin creams to their feet as directed. Rx was sent to their pharmacy at the time of visit.? ??Screening/Special Tests:?Fall Risk?Screening:?No falls in the past year ?FALLS: Screening for Future Fall Risk?Have you had any falls with injury in the past year??No * Follow Up:?3 Months * Images: * Sign off status: Completed true * Provider:?Vilma Mcqueen DPM Date:? Generated for Imani goldberg/Ronel/Kushal on:?06/13/2024 07:53 AM EST History and Physical Notes * HPI (History of Present Illness) Category Sub-Category Detail Notes Category Not es Skin problems Nature: scaling , redness Location: B/L Duration: several days Course: worse At Risk footcare Pt States Last PCP Visit: Date: 5 Examination Category Sub-Category Detail Notes Category Not es Neurological SENSORY: Neurological exa m demonstrates, reduced light touch sensation, reduced sharp/dull pin prick discrimination , B/L, 5.07 monofilament test performed at plantar aspects of 5 varied sites per foot shows sensation, reduced , B/L Dermatologic SKIN FINDINGS: Skin exam reveal s Keratotic lesion(s) located at plantar heels B/L, sub 1st metatarsal head B/L TA, T5, Skin shows sign(s) of, erythema, scaling, in a moccasin fashion, no fissure(s) present, B/L Orthopedic MUSCLE STRENGTH: 5/5 all groups in a symmetrical fashion, B/L General Examination GENERAL APPEARANCE: Reveals a pleasant, alert, well nourished, well-developed, well hydrated individual, who demonstrates proper attention to hygiene/body habitus, and is in no acute distress, Pt serves as own historian for office visit today ORIENTED: person, place, and t [place] [facility] DP PULSES (B): 1/4, B/L PT PULSES (B): 1/4, B/L CAPILLARY FILL TIME: immediate, all digi ts, B/L TEMPERTURE GRADIENT (C): normal, warm to cool, proximal to distal, B/L, B/L TROPHIC CONDITION-TEXTURE/ELASTICITY/TURGOR/HAIR GROWTH (B): decreased, B/L EDEMA (C): absent, B/L PARESTHESIA (C): absent, B/L BURNING (C): absent, B/L Nails NAILS are: Elongated, overg rown, dystrophic, lytic, greater than 3mm thick, discolored and friable with crumbly malodorous subungual debris, with dull to no pain on palpation due to neuropathy , TA, T1, T2, T3, T4, T5, T6, T7, T8, T9
[2024-07-23] MEDS: Lactated Ringers 500 ML 50 ML IV (08:59)
[2024-07-23] MEDS: Phenylephrine HCL 2.5% Oph SoL 2 ML BOTTLE 1 DROP EYE-RIGHT ×3 (09:00→09:11)
[2024-07-23] MEDS: Tetracaine HCl/PF 0.5% Oph Sol 4 ML DROPS 1 DROP EYE-RIGHT (09:00)
[2024-07-23] MEDS: Ketorolac Tromethamine 0.5% Op 5 ML DROPS 1 DROP EYE-RIGHT ×3 (09:01→09:11)
[2024-07-23] MEDS: Tropicamide 1 % Ophth Sol 3 ML BTL 1 DROP EYE-RIGHT ×3 (09:01→09:11)
[2024-07-23] MEDS: Cyclopentolate 1 % Ophth Sol 2 ML DRPBTL 1 DROP EYE-RIGHT ×3 (09:01→09:11)
[2024-07-23 09:14] VITALS: BP 143/58; PULSE 67; RESP 18; TEMP 36.8; O2SAT 96; BMI 29.7
--- NOTE | 2024-07-23 09:18 | P.CONAN_ITS ---
Documented by User: Xenia Vigil NP 07/19/24 14:11 HPI - Anesthesia Eval Consult details Narrative: 73yo M for Right Cataract Extraction IOL Insertion Left eye 07/09/24: Midaz 2 PMFSH Active Problems Active Problems: All Active Problems Pre-op evaluation (Acute) Low back pain (Acute) Colon cancer screening (Acute) Cataract (Acute) Mild obstructive sleep apnea (Acute) Pulmonary nodule (Acute) Bipolar disorder (Acute) Coronary artery disease (Acute) Hypertension (Acute) Hypercholesterolemia (Acute) Hypothyroid (Acute) Impaired glucose tolerance (Acute) Anemia (Acute) COPD (chronic obstructive pulmonary disease) (Acute) Allergic rhinitis (Acute) Personal history of nicotine dependence (Acute) GERD (gastroesophageal reflux disease) (Acute) Hypersomnia (Acute) Obesity (BMI 30-39.9) (Acute) Past Medical History Medical History (Updated 07/04/24 @ 11:10 by Belen Goncalves RN) Cataracts, bilateral Hypersomnia COPD (chronic obstructive pulmonary disease) Personal history of nicotine dependence Allergic rhinitis Cervical spine fracture GERD (gastroesophageal reflux disease) Pulmonary nodule Vitamin D deficiency Obesity (BMI 30-39.9) Hypothyroid Bipolar disorder PTSD (post-traumatic stress disorder) Coronary artery disease Impaired glucose tolerance Hypercholesterolemia Anemia Hypertension Family History Family History Father CAD (coronary artery disease) Myocardial infarction CVD (cardiovascular disease) Mother No problems noted. Brother In good health Sister In good health Maternal Aunt Lung cancer Family history of problems with anesthesia: No Surgical History Surgical History (Updated 07/17/24 @ 13:50 by Belen Goncalves RN) Hx of left cataract extraction (07/09/24) History of cervical spinal surgery History of surgery H/O nasal polyp History of surgery on arm History of tooth extraction History of Problems with Anesthesia: No Social History Social History Housing: Apartment Alcohol intake: current Alcohol intake frequency: a few times a week Patient Tobacco Use Status: Former Tobacco user Tobacco use type: Cigarette e-Cigarette/Vaping Use: Never Used Second Hand Smoke Exposure: Yes Are you DNR?: No Advance Directives: No Advance Directives Information Provided: Yes Advance Directives on File: No service: Yes Current occupational status: retired Cognitive needs: No Hearing needs: No Vision needs: Yes Meds Allergies Allergy/AdvReac Type Severity Reaction Status Date / Time azithromycin [AZITHROMYCIN] Allergy Intermediate Unknown Verified 07/09/24 09:38 divalproex sodium Allergy Unknown Hair loss Verified 07/09/24 09:38 [From Depakote] erythromycin base Allergy Unknown Anaphylaxis Verified 07/09/24 09:38 [ERYTHROMYCIN BASE] lithium Allergy Unknown Thyroid Verified 07/09/24 09:38 disorder trazodone Allergy Unknown priapism Verified 07/09/24 09:38 atorvastatin AdvReac Intermediate myalgia Verified 07/09/24 09:38 lisinopril AdvReac Intermediate Cough Verified 07/09/24 09:38 Exam Height,Weight and Vital Signs: Height 5 ft 11 in Assessment and Plan Assessment Anesthesia Assessment: Chart Reviewed Final Anesthetic Review Family History of Problems with Anesthesia: No History of Problems with Anesthesia: No Documented by User: Ayesha Ashley DO 07/23/24 09:19 [facility] Past Medical History Medical History (Updated 07/04/24 @ 11:10 by Belen Goncalves, TOPHER) Cataracts, bilateral Hypersomnia COPD (chronic obstructive pulmonary disease) Personal history of nicotine dependence Allergic rhinitis Cervical spine fracture GERD (gastroesophageal reflux disease) Pulmonary nodule Vitamin D deficiency Obesity (BMI 30-39.9) Hypothyroid Bipolar disorder PTSD (post-traumatic stress disorder) Coronary artery disease Impaired glucose tolerance Hypercholesterolemia Anemia Hypertension Family History Family History Father CAD (coronary artery disease) Myocardial infarction CVD (cardiovascular disease) Mother No problems noted. Brother In good health Sister In good health Maternal Aunt Lung cancer Family history of problems with anesthesia: No Surgical History Surgical History (Updated 07/17/24 @ 13:50 by Belen Goncalves RN) Hx of left cataract extraction (07/09/24) History of cervical spinal surgery History of surgery H/O nasal polyp History of surgery on arm History of tooth extraction History of Problems with Anesthesia: No Social History Social History Housing: Apartment Alcohol intake: current Alcohol intake frequency: a few times a week Patient Tobacco Use Status: Former Tobacco user Tobacco use type: Cigarette e-Cigarette/Vaping Use: Never Used Second Hand Smoke Exposure: Yes Are you DNR?: No Advance Directives: No Advance Directives Information Provided: Yes Advance Directives on File: No service: Yes Current occupational status: retired Cognitive needs: No Hearing needs: No Vision needs: Yes Meds Allergies Allergy/AdvReac Type Severity Reaction Status Date / Time azithromycin [AZITHROMYCIN] Allergy Intermediate Unknown Verified 07/09/24 09:38 divalproex sodium Allergy Unknown Hair loss Verified 07/09/24 09:38 [From Depakote] erythromycin base Allergy Unknown Anaphylaxis Verified 07/09/24 09:38 [ERYTHROMYCIN BASE] lithium Allergy Unknown Thyroid Verified 07/09/24 09:38 disorder trazodone Allergy Unknown priapism Verified 07/09/24 09:38 atorvastatin AdvReac Intermediate myalgia Verified 07/09/24 09:38 lisinopril AdvReac Intermediate Cough Verified 07/09/24 09:38 Exam Exam Date and Time: 07/23/24 0915 Height,Weight and Vital Signs: Height 5 ft 11 in Height 5 ft 11 in Weight 96.615 kg Vital Signs Temperature 98.3 F 07/23/24 09:14 Pulse Rate 67 07/23/24 09:14 Respiratory Rate 18 07/23/24 09:14 Blood Pressure 143/58 H 07/23/24 09:14 Pulse Oximetry 96 07/23/24 09:14 Oxygen Delivery Method Room Air 07/23/24 09:14 Temperature 98.3 F 07/23/24 09:14 Pulse Rate 67 07/23/24 09:14 Respiratory Rate 18 07/23/24 09:14 Blood Pressure 143/58 H 07/23/24 09:14 Pulse Oximetry 96 07/23/24 09:14 Oxygen Delivery Method Room Air 07/23/24 09:14 Airway Mallampati Class: II TM Dist: >3cm Neck ROM: Full Loose/Missing/Broken Teeth: No (patient denies any loose or broken teeth) Heart: S1S2 Lungs: CTAB Assessment and Plan Assessment Anesthesia Assessment: Anesthesia Plan Discussed and Chart Reviewed Final Anesthetic Review Family History of Problems with Anesthesia: No History of Problems with Anesthesia: No NPO: Yes ASA Class: III Final Preanesthetic Review: No Changes in Pt Med Stat, Meds/Allgs Chart Reviewed, Consent Obtained/Reviewed and Anes Risks/Benef Reviewed Patient Risk: Intermediate Procedure Risk: Low Anesthetic Plan Anesthetic Plan: MAC: and Agree w/ Assess. and Plan Disposition: Standard PACU
--- NOTE | 2024-07-23 09:57 | MHC.SHP ---
Pre-Procedural Eval Section A - 24 Hr Update-Section A only Date of Service: 07/23/24 The patient is an INPATIENT: No Changes since office visit: No Cold of Flu in the past 2 weeks, No New Medical Problems, No Changes in Medication and No Patient answered all questions The patient has been examined within 24 hours of the surgical procedure. The History & Physical has been completed within 30 days and I have reviewed it.: Yes Section B - Complete if H&P > 30 days Chief Complaint: Age-related nuclear cataract, right eye Allergies: Allergies Allergy/AdvReac Type Severity Reaction Status Date / Time azithromycin [AZITHROMYCIN] Allergy Intermediate Unknown Verified 07/23/24 09:19 divalproex sodium Allergy Unknown Hair loss Verified 07/23/24 09:19 [From Depakote] erythromycin base Allergy Unknown Anaphylaxis Verified 07/23/24 09:19 [ERYTHROMYCIN BASE] lithium Allergy Unknown Thyroid Verified 07/23/24 09:19 disorder trazodone Allergy Unknown priapism Verified 07/23/24 09:19 atorvastatin AdvReac Intermediate myalgia Verified 07/23/24 09:19 lisinopril AdvReac Intermediate Cough Verified 07/23/24 09:19 Plan Diagnosis/Plan: Unchanged I have reviewed the history and physical and performed a pertinent physical examination on my patient. No changes have occurred unless specified. Time Spent With Patient Time: Total time managing care of this patient today ____ minutes.
--- NOTE | 2024-07-23 09:58 | P.PCNO_ITS ---
Ophthalmology Procedure Procedure Date of Service: 07/23/24 Ophthalmology Viscoelastic: Healon Duet Dual Pack Pro Ophthalmology Lenses: IOL Acrysof MP - MA60AC (18) Procedure Notes: PREOPERATIVE DIAGNOSIS: Decreased visual acuity right eye secondary to cataract POSTOPERATIVE DIAGNOSIS: Same PROCEDURE: Right cataract extraction with intraocular lens insertion SURGEON: Murray Garay M.D. ANESTHESIA: Topical/MAC ESTIMATED BLOOD LOSS: None COMPLICATIONS: None After obtaining informed consent, the patient was brought to the operating room suite and placed in the supine position. After adequate sedation per anesthesia, topical drops of Tetracaine were given to the right eye. The eye was then prepped and draped in the usual sterile fashion. The operating room microscope was then positioned over the operative eye and a lid speculum placed. A paracentesis was created. Viscoelastic was then instilled into the anterior chamber. A three plane incision was then created temporally, utilizing a 2.85 mm keratome. Capsulotomy forceps were then utilized to create a circular tear capsulotomy. Hydrodissection and hydrodelineation were carried out until adequate mobilization of the nucleus occurred. Phacoemulsification was then utilized to remove the dense central nucl eus followed by removal of the cortical material utilizing the automated aspiration irrigation unit. Viscoelastic was instilled into the posterior capsular bag followed by placement of a posterior chamber intraocular lens without difficulty. The residual Viscoelastic was then removed utilizing the automated IA machine. The wound was checked and found to be watertight. The patient tolerated the procedure well and the lid speculum was removed. Intracameral injection of Vigamox 0.1 mL followed by a subtenon injection of Kenalog-40 0.2 mL were administered. The patient will be seen in the a.m.
[2024-07-23 10:25] VITALS: PULSE 63; RESP 16; TEMP 36.2; O2SAT 99
== END 2024-07-23 10:36 | disposition home or self-care (01) ==
PROVIDERS: PCP Internal Medicine; Visit Provider Ophthalmology
PROC: (CPT 66985; principal; 2024-07-23 10:30)
DX: H25.11 Age-related nuclear cataract, right eye (principal); H54.7 Unspecified visual loss; H52.4 Presbyopia; H18.413 Arcus senilis, bilateral; Z87.891 Personal history of nicotine dependence; I10 Essential (primary) hypertension; E78.00 Pure hypercholesterolemia, unspecified; E03.9 Hypothyroidism, unspecified; Z79.82 Long term (current) use of aspirin; Z79.899 Other long term (current) drug therapy; Z88.1 Allergy status to other antibiotic agents; Z97.3 Presence of spectacles and contact lenses
CPT/HCPCS: 66984; J2250; J3301; V2630

== ENCOUNTER 2024-08-14 12:09 | Outpatient (REF) | payer OTHER, SELFPAY ==
[2024-08-14 12:40] LABS: MANUAL DIFF FLAG NO
[2024-08-14 13:07] LABS: Basophils Percent Auto 0.2 % (0-2); Eosinophils Absolute Auto 0.1 X10*3/uL (0.0-0.4); Hematocrit 36.6 % (42.0-52.0); Hemoglobin 12.3 g/dl (14.0-18.0); Imm Gran Abs Auto 0.02 X10*3/uL (0.00-0.03); Imm Gran Pct Auto 0.4 % (0.0-0.4); Lymphocytes Absolute Auto 0.9 X10*3/uL (1.2-4.9); Lymphocytes Percent Auto 20.7 % (20-40); Mean Corpuscular HGB Conc 33.6 g/dl (31.0-36.0); Mean Corpuscular Hemoglobin 33.7 pg (27.0-33.0); Mean Corpuscular Volume 100.3 fL (80.0-98.0); Mean Platelet Volume 9.3 fL (9.4-12.4); Monocytes Absolute Auto 0.4 X10*3/uL (0.1-1.2); Monocytes Percent Auto 8.6 % (2-11); Neutrophils Absolute Auto 3.1 x10*3/uL (2.0-8.3); Neutrophils Percent Auto 68.1 % (45-73); Platelet Count 156 X10*3/uL (160-400); Red Blood Count 3.65 X10*6/uL (4.60-5.80); Red Cell Distribution Width 15.3 % (11.0-16.0); White Blood Count 4.5 X10*3/uL (4.8-10.8)
[2024-08-14 13:18] LABS: Estimated Average Glucose 94 mg/dL; Hemoglobin A1C 98.5691 umol/L; Hemoglobin A1c % 4.9 % (<6.0); Total Hemoglobin (HGBA1C) 3297.2065 umol/L
--- OUTSIDE RECORDS SUMMARY | 2024-08-14 14:11 | XMS_ITS ---
Author Organization [facility] Address [address] [place] [address] Care Team Providers Care Clip Wrapper Name Role Phone Phuc Alvarez Primary Care Provider Vilma Torres [phone] REASON FOR VISIT Rs 08/22/24 Appt Encounters Encounter Location Date Provider Diagnosis [address] [place] [id number] 06/12/2024 Vilma Mcqueen Plan Of Treatment Next Appt Details Provider Name:Vilma lewis, 09/04/2024 02:45:00 PM, [address] [place], [phone], Progress Notes * Konrad VARELADOB:1950 ([age] yo M)Acc No.[id number]:06/12/2024 Patient:?AVERYKonrad :1950???Age:73 Y???Sex:Male Address:[address] [place] [address], [address], [place], [address] * true * Date:? Generated for Janeti yusuf/Ronel/eTransmitting on:?08/14/2024 02:10 PM EDT
--- OUTSIDE RECORDS SUMMARY | 2024-08-14 14:11 | XMS_ITS ---
[facility] Address [address] [place] [address] Care Team Providers Care Water Project Engineer Name Role Phone Phuc Alvarez Primary Care Provider Vilma Torres Unavailable [phone] Allergies Allergen (clinical drug ingredient) Drug/Non Drug [...] Notes Tobacco use: Nonsmoker Vital Signs Height 0wj50po in 06/05/2024 Weight 205 lbs 06/05/2024 BMI 28.59 kg/m2 06/05/2024 Blood pressure systolic 110 mm Hg 06/05/19 25 Blood pressure diastolic 60 mm Hg 025 Encounters Encounter Location Date Provider Diagnosis [facility] [address] [place] [address] 06/05/2024 Vilma Mcqueen Type 2 diabetes mellitus with diabetic polyneuropathy E11.42 ; Tinea pedis of both feet B35.3 ; Tinea unguium B35.1 and 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 of extremities, bilateral legs I70.203 Assessments Encounter Date Diagnosis (ICD Code) Assessment Notes Treatment Notes Treatment Clinical Notes Section Notes 06/05/2024 Type 2 diabetes mellitus with diabetic polyneuropathy (ICD-10 - E11.42) 06/05/2024 Tinea pedis of both feet (ICD-10 - B35.3) 06/05/2024 Tinea unguium (ICD-10 - B35.1) 06/05/2024 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 of extremities, bilateral legs (ICD-10 - I70.203) Plan Of Treatment Medication Medication Name Sig Start Date Stop Date Notes Ciclopirox Olamine 0.77 % 1 application Externally Twice a day to skin of feet including between the toes for 30 days Next Appt Details Follow Up: 3 Months, Reason: Provider Name:Vilma lewis, 09/04/2024 02:45:00 PM, [address] [place] [address], [phone], Procedure Notes * Category Sub-Category Detail Notes [...] use of a nail nipper and/or dremel-type grinder carbon plant, to a more viable healthy nail plate [...] to maintain effectiveness in symptomatic relief - 25432 Keratoma Treatment Parring or Cutting o f [...] instrumentation by the physician of record - 24804 Progress Notes * Konrad VARELADOB:1950 ([age] yo M)Acc No.[id number]:06/05/2024 Progress Note Patient:Konrad BATES Provider:?Vilma Mcqueen DPM :1950???Age:73 Y???Sex:Male Manpreet e:06/05/2024 Address:[address] [place] [address] [address], [place] [phone] Pcp:Phuc Alvarez Subjective: * Chief Complaints: * [...] anaphylaxis - Allergyyes[Allergies Verified] Objective: * Vitals:?Ht: 1gc85yh, Wt:205, BMI:28.59, Shoe size: 10, BP:110/60mm Hg, [...] management (4)???3.?Tinea unguium - B35.1???4.?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 of extremities, bilateral legs - I70.203??? [...] use of a nail nipper and/or dremel-type grinder carbon plant, to a more viable healthy nail plate [...] to maintain effectiveness in symptomatic relief - 19555.?Keratoma Treatment:?Parring or Cutting of Benign Hyperkeratotic Lesion(s)?(-57) [...] instrumentation by the physician of record - 61801.? * Procedure Codes:?73828 DEBRI DE NAIL, 6 OR MORE, Modifiers: XS 56181 TRIM SKIN LESIONS, OVER 4, Modifiers: XS [...] Mcqueen DPM Date:? Generated for Imani goldberg/Ronel/Kushal on:?08/14/2024 02:11 PM EDT History and Physical Notes * [...]
--- OUTSIDE RECORDS SUMMARY | 2024-08-14 14:11 | XMS_ITS ---
Author Organization [facility] Address [address] [place] [address] Care Team Providers Care Environmental Adviser Name Role Phone Phuc Alvarez Primary Care Provider Vilma Torres Unavailable [phone] Barbara Rubi [phone] Champion Encounters Encounter Location Date Provider Diagnosis [facility] [address] [place] [address] 05/31/2024 Barbara Rubi Plan Of Treatment Next Appt Details Provider Name:Vilma lewis, 09/04/2024 02:45:00 PM, [address] [place], [address], Progress Notes * Konrad JUDGEDOB:1950 ([age] yo M)Acc No.[id number]:05/31/2024 Progress Note Patient:?Konrad JUDGE Provider:?Barbara Rubi DPM :1950???Age:73 Y???Sex:Male Manpreet e:05/31/2024 Address:[address] [place] [address] [address], [place], [place] Pcp:Phuc Alvarez Subjective: * Chief Complaints: * [...] DPM Date:?0 05/31/2024 Generated for Imani goldberg/Ronel/Kushal on:?08/14/2024 02:11 PM EDT
--- OUTSIDE RECORDS SUMMARY | 2024-08-14 14:11 | XMS_ITS | Patient Health Record ---
[facility] Address [address] [place] [address] Care Team Providers Care Customer Relations Assistant Name Role Phone Phuc Alvarez Primary Care Provider UnavailVilma Arias Unavailable [phone] Sawyer Molina Unavailable [phone] Barbara Rubi Unavailable [phone] Allergies Allergen (clinical drug ingredient) Drug/Non Drug [...] Active Immunizations Vaccine Route Administration Date [facility] Moderna Vaccine Unknown 02/12/2021 Administered 1st [...] Polyneuropathy due to diabetes mellitus type I (602450838) Type 1 diabetes mellitus with diabetic polyneuropathy (E10.42) Active confirmed Problem Polyneuropathy due to type 2 diabetes mellitus (920213536) Type 2 diabetes mellitus with diabetic polyneuropathy (E11.42) Active confirmed Problem Bilateral atherosclerosis of arteries of lower limbs (disorder) (17254034323126502 ) Unspecified atherosclerosis of [place] arteries of extremities, bilateral legs (I70.203) Active confirmed Vital Signs Blood pressure diastolic 60 mm Hg 06/05/2024 Height 1bu10sv in 06/05/2024 Blood pressure systolic 110 mm Hg 06/05/2024 Weight 205 lbs 06/05/2024 BMI 28.59 kg/m2 06/05/2024 Procedures Procedure Date Ordered Date Performed Result Body Sit e 71084-KVYVSDZ NAIL, 6 OR MORE 03/22/2024 N/A 62946-XCFW SKIN LESIONS, 2 TO 4 03/22/2024 N/A Encounters Encounter Location Date Provider Diagnosis [address] [address] 09/19/2023 Sawyer Molina Tinea unguium B35.1 ; Pain in right toe(s) M79.674 ; Pain in left toe(s) M79.675 ; Unspecified atherosclerosis of [place] arteries of extremities, bilateral legs I70.203 and Xerosis cutis L85.[address] [address] 12/14/2023 Sawyer Molina Tinea unguium B35.1 ; Pain in right toe(s) M79.674 ; Pain in left toe(s) M79.675 ; Unspecified atherosclerosis of [place] arteries of extremities, bilateral legs I70.203 and Xerosis cutis L85.[address] [address] 03/22/2024 Barbara Rubi Tinea unguium B35.1 ; Type 2 diabetes mellitus with diabetic polyneuropathy E11.42 and Unspecified atherosclerosis of [place] arteries of extremities, bilateral legs I70.[address] [address] 06/05/2024 Vilma Mcqueen Type 2 diabetes mellitus with diabetic polyneuropathy E11.42 ; Tinea pedis of both feet B35.3 ; Tinea unguium B35.1 and Unspecified atherosclerosis of [place] arteries of extremities, bilateral legs I70.203 [facility] [address] [address] 06/12/2024 Vilma Mcqueen Assessments Encounter Date Diagnosis [...] (ICD-10 - B35.1) 03/22/2024 Unspecified atherosclerosis of [place] arteries of extremities, bilateral legs (ICD-10 - I70.203) 12/14/2023 Pain in right toe(s) (ICD-10 - M79.674) 09/19/2023 Pain in right toe(s) (ICD-10 - M79.674) 09/19/2023 Pain in left toe(s) (ICD-10 - M79.675) 12/14/2023 Pain in left toe(s) (ICD-10 - M79.675) 06/05/2024 Unspecified atherosclerosis of [place] arteries of extremities, bilateral legs (ICD-10 - I70.203) 12/14/2023 Unspecified atherosclerosis of [place] arteries of extremities, bilateral legs (ICD-10 - I70.203) 09/19/2023 Unspecified atherosclerosis of [place] arteries of extremities, bilateral legs (ICD-10 - I70.203) 09/19/2023 Xerosis cutis (ICD-10 - L85.3) 12/14/2023 Xerosis cutis (ICD-10 - L85.3) Plan Of Treatment Pending Test Test Name Order Date 33370-CWBUCCF NAIL, 6 OR MORE 03/22/2024 75419-IZMF SKIN LESIONS, 2 TO 4 03/22/20 24 22673-USDL SKIN LESIONS, 2 TO 4 06/15/19 22 03888-VLBJ SKIN LESIONS, 2 TO 4 09/10/19 Next Appt Details Provider Name:Vilma lewis, 09/04/2024 02:45:00 PM, [address] [place] [address], [place], [address], Insurance Providers Payer Name Payer Address Payer Phone Subscriber Number Group Number Insured Name Patient Relationship to Insured Coverage Start Date Coverage End Date [facility] [employer] Claims [address] [place] [id number] Konrad Varela Self - patient is the insured Medical (General) History Medical History History ICD Code Back,Hip,and Knee pain Broken bones CAD (Cholesterol) Cataracts High blood pressure Reflux ( GERD) thyroid Measles Mumps Chicken pox Joint implants/screws atrial sclerosis Surgical History Surgery Date(Month/Year) neck surgery 2019? nose 2001
--- OUTSIDE RECORDS SUMMARY | 2024-08-14 14:11 | XMS_ITS | Clinical Summary ---
Author Organization [facility] Address [address] [place] [address] Care Team Providers Care Telephone Clerk Name Role Phone Unavailable Primary Care Provider [...]
[2024-08-14 14:15] LABS: Alanine Aminotransferase 38 U/L (0-40); Albumin Level 4.2 g/dL (3.5-5.0); Alkaline Phosphatase 94 U/L (39-117); Anion Gap 14 (12-20); Aspartate Amino Transferase 39 U/L (5-37); Blood Urea Nitrogen 18 mg/dL (9-16); Calcium 8.9 mg/dL (8.4-10.2); Carbon Dioxide 24 mmol/L (22-29); Chloride 98 mmol/L (96-108); Estimated Glomerular Filt Rate > 60; Glucose Random 81 mg/dL (60-115); Potassium 4.1 mmol/L (3.3-5.1); Sodium 132 mmol/L (135-145); Total Protein 6.6 g/dL (6.5-8.0)
[2024-08-14 14:18] LABS: Free T4 (Free Thyroxine) 1.19 ng/dL (0.71-1.85); Thyroid Stimulating Hormone 2.36 uIU/mL (0.32-4.0)
== END 2024-08-14 12:10 | disposition home or self-care (01) ==
LOC: HO.LAB 12:09
PROVIDERS: PCP Internal Medicine; Visit Provider Internal Medicine
DX: I10 Essential (primary) hypertension (principal)
CPT/HCPCS: 36415; 80053; 83036; 84439; 84443; 85025

== ENCOUNTER 2024-08-29 10:01 | Outpatient (AMB) | payer OTHER, SELFPAY ==
[2024-08-29 10:12] VITALS: BP 124/78; PULSE 76; O2SAT 97; BMI 28.3
--- NOTE | 2024-08-29 10:12 | A.OFFPC_ITS ---
Vital Signs 08/29/24 10:12 Height 5 ft 11 in Weight 203 lb BMI 28.3 BP 124/78 Blood Pressure Location Lt brachial Position Sitting Pulse 76 Pulse Source Pulse Oximeter Pulse Oximetry (%) 97 Oxygen Delivery Method Room Air Intake Visit Reasons: COPD, CAD Allergies azithromycin [AZITHROMYCIN] Allergy (Intermediate, Verified 08/29/24 10:12) Unknown divalproex sodium [From Depakote] Allergy (Unknown, Verified 08/29/24 10:12) Hair loss erythromycin base [ERYTHROMYCIN BASE] Allergy (Unknown, Verified 08/29/24 10:12) Anaphylaxis lithium Allergy (Unknown, Verified 08/29/24 10:12) Thyroid disorder trazodone Allergy (Unknown, Verified 08/29/24 10:12) priapism atorvastatin Adverse Reaction (Intermediate, Verified 08/29/24 10:12) myalgia lisinopril Adverse Reaction (Intermediate, Verified 08/29/24 10:12) Cough Medication List - Last Reconciled 08/29/24 by Phuc Alvarez, acetaminophen 500 mg PO Q6H PRN acyclovir 400 mg PO TID 7 days albuterol sulfate 90 mcg/actuation (ProAir HFA) 2 puffs inhalation QID PRN alprazolam (Xanax) 0.25 mg PO BEDTIME PRN aspirin 81 mg PO DAILY 90 days [BED WEDGE As directed] cetirizine 10 mg PO DAILY cholecalciferol (vitamin D3) 50 mcg PO DAILY diphenhydramine HCl (Banophen) 50 mg PO BEDTIME docusate sodium 200 mg (2 x 100 mg) PO TID ezetimibe 10 mg PO DAILY ferrous sulfate (FeroSul) 325 mg PO BID fluticasone propion-salmeterol 250-50 mcg/dose (Advair Diskus) 1 inh inhalation BID 90 days hydrochlorothiazide 12.5 mg PO QAM levothyroxine 125 mcg PO QAM losartan 50 mg PO DAILY melatonin 3 mg PO BEDTIME PRN mometasone 50 mcg/actuation (Nasonex 24hr Allergy) 2 sprays intranasal DAILY PRN vrjdolggkhdu-rqwektlq-qxrfeu 1 tab PO DAILY omeprazole 20 mg PO DAILY psyllium husk (Reguloid (psyllium husk)) 0.8 grams (2 x 0.4 gram) PO QID PRN 30 days rosuvastatin 40 mg PO DAILY 90 days sennosides-docusate sodium 8.6-50 mg (Senna Plus) 4 tabs PO BEDTIME Shower Chair As directed tramadol 50 mg PO TID PRN 90 days Tobacco use date assessed: 07/03/24 Fall risk assessment: No Falls in past year Last assessed Fall Risk: 08/29/24 Dental Screening Dental Screen Date: 05/17/24 [facility] Medical History (Updated 08/29/24 @ 10:41 by Phuc Alvarez MD) Cataracts, bilateral Hypersomnia COPD (chronic obstructive pulmonary disease) Personal history of nicotine dependence Allergic rhinitis Cervical spine fracture GERD (gastroesophageal reflux disease) Pulmonary nodule Vitamin D deficiency Obesity (BMI 30-39.9) Hypothyroid Bipolar disorder PTSD (post-traumatic stress disorder) Coronary artery disease Impaired glucose tolerance Hypercholesterolemia Anemia Hypertension Surgical History Hx of left cataract extraction (07/09/24) History of cervical spinal surgery History of surgery H/O nasal polyp History of surgery on arm History of tooth extraction Family History Father CAD (coronary artery disease) Myocardial infarction CVD (cardiovascular disease) Mother No problems noted. Brother In good health Sister In good health Maternal Aunt Lung cancer Social History Housing: Apartment Are you a primary care director to a significant other at home: No Do you presently have visiting nurse or other home services: No Alcohol intake: current Alcohol intake frequency: a few times a week Patient Tobacco Use Status: Former Tobacco user Tobacco use type: Cigarette e-Cigarette/Vaping Use: Never Used Second Hand Smoke Exposure: Yes service: Yes Current occupational status: retired Cognitive needs: No Hearing needs: No Vision needs: Yes Questionnaire PHQ-9 Over the last 2 weeks, how often have you been bothered by any of the following problems? 1. Little interest or pleasure in doing things: not at all 2. Feeling down, depressed, or hopeless: not at all 3. Trouble falling or staying asleep, or sleeping too much: not at all 4. Feeling tired or having little energy: not at all 5. Poor appetite or overeating: not at all 6. Feeling bad about yourself - or that you are a failure or have let yourself or your family down: not at all 7. Trouble concentrating on things, such as reading the newspaper or watching television: not at all 8. Moving or speaking so slowly that other people could have noticed. Or the opposite - being so fidgety or restless that you have been moving around a lot more than usual: not at all 9. Thoughts that you would be better off or of hurting yourself in some way: not at all Total score: 0 Depression Screening Interpretation: Negative Depression Screening Done: Yes Source: Developed by Drs. Olman Albert, Ruby Garcia, Kunal Mcclendon and colleagues, with an educational jae from [employer]. Thrive Questionnaire Date Thrive assessed: 05/17/24 I am a: Patient What is your living situation today?: I have a steady place to live Within the past 12 months, did the food you bought not last and you didn't have the money to get more?: Never true Within the past 12 months, did you worry whether your food would run out before you got money to buy more?: Never true Do you have trouble paying for medicines?: No Do you have trouble getting transportation to medical appointments?: No Do you have trouble paying your heating and electricity bill?: No Do you have trouble taking care of your child, family member or friend?: No Do you have trouble with day-to-day activities such as bathing, preparing meals, shopping, managing finances, etc.?: No Are you currently unemployed and looking for a job?: No Are you interested in more education?: No Please select the resources that you would like help with: None Currently or been in a relationship where the following occur: No concerns reported THRIVE Score: 0 AUDIT C Alcohol Use Questionnaire (AUDIT-C) 1. How often do you have a drink containing alcohol?: 2-3 times a week Total Score: 3 DEEPA-7 AMB Questionnaire DEEPA-7 Date DEEPA - 7 assessed: 05/17/24 Feeling nervous, anxious, or on edge: 0 = Not at all Not being able to stop or control worryin = Not at all Worrying too much about different things: 0 = Not at all Trouble relaxin = Not at all Being so restless that it is hard to sit still: 0 = Not at all Becoming easily annoyed or irritable: 0 = Not at all Feeling afraid as if something awful might happen: 0 = Not at all Total DEEPA-7 score (0-4 normal; 5-9 mild; 10-14 moderate; 15-21 severe): 0 Source: Developed by Drs. Olman Albert, Ruby Garcia, Kunal Mcclendon and colleagues, with an educational jae from [employer]. Physical exam (Primary Care) Vital Signs: Last Vital Signs Pulse 76 08/29/24 10:12 BP 124/78 08/29/24 10:12 Pulse Ox 97 08/29/24 10:12 Oxygen Delivery Method Room Air 08/29/24 10:12 BMI result Body Mass Index 28.3 Tobacco/Smoking Status: Tobacco use Status Tobacco use date assessed 07/03/24 08/29/24 10:13 Patient Tobacco Use Status Former Tobacco user 08/29/24 10:13 Tobacco use type Cigarette 08/29/24 10:13 e-Cigarette/Vaping Use Never Used 08/29/24 10:13 PHQ-9: PHQ-9 Score PHQ-9: Total score 0 08/29/24 10:32 Depression Screening Interpretation: Negative Thrive Assessment: Date of Thrive Assessment Date Thrive assessed 05/17/24 08/29/24 10:13 Currently or been in a relationship where the following occur: No concerns reported Const General: alert; No acute distress Eyes Conjunctivae: conjunctivae normal Resp Auscultation: clear to auscultation bilaterally Cardio Rate: regular rate Rhythm: regular rhythm GI Inspection: Yes normal to inspection Extrem General: Yes normal to inspection and No edema Coding Level of Care Code Est Pt Level 4 (29761) Complex EM visit Add On G2211 Diagnoses Gastroesophageal reflux disease without esophagitis K21.9 Esophagitis presence: without esophagitis Personal history of nicotine dependence Z87.891 Pulmonary emphysema, unspecified emphysema type J43.9 COPD type: emphysema Emphysema type: unspecified Impaired glucose tolerance R73.02 Acquired hypothyroidism E03.9 Hypothyroidism type: acquired Hypercholesterolemia E78.00 Essential hypertension I10 Hypertension type: essential hypertension Coronary artery disease involving [place] coronary artery of [place] heart without angina pectoris I25.10 Associated angina: without angina Coronary Disease-Associated Artery/Lesion type: [place] artery [place] vs. transplanted heart: [place] heart Pulmonary nodule R91.1 Colon cancer screening Z12.11 Erectile dysfunction N52.9 Assessment & Plan Assessment & Plan (1) GERD (gastroesophageal reflux disease): Code(s): K21.9 - Gastro-esophageal reflux disease without esophagitis Category: Medical Qualifiers: Esophagitis presence: without esophagitis Qualified Code(s): K21.9 - Gastro-esophageal reflux disease without esophagitis Plan: Avoid the foods that causes that usually spicy foods, tomato products, juices, coffee, soda and foods that your sensitive to. After eating do not lie down, allow 3-4 hours before in lie down. And keep the head of bed above 30 degrees to avoid the acid from going up. (2) Personal history of nicotine dependence: Comment: (onset 11, 1-1.5ppd x 46 yrs, 50+pyh, quit 2007) Code(s): Z87.891 - Personal history of nicotine dependence Category: Medical Plan: Patient is enrolled in the lung cancer screening program (3) COPD (chronic obstructive pulmonary disease): Comment: At present he is relatively asymptomatic but his pulmonary function test, has shown mild to moderate degree of COPD with good response to bronchodilator therapy. Currently he is asymptomatic. [place] : Advised to use Advair 250-50 one inh BID only PRN , if the cough or wheezing starts . Does not have to use on regular basis Code(s): J44.9 - Chronic obstructive pulmonary disease, unspecified Category: Medical Qualifiers: COPD type: emphysema Emphysema type: unspecified Qualified Code(s): J43.9 - Emphysema, unspecified Plan: Stable on Advair (4) Impaired glucose tolerance: Code(s): R73.02 - Impaired glucose tolerance (oral) Category: Medical Plan: Decrease the amount of carbohydrate intake, pasta, bread, rice and potatoes are all sugar and that is aside from all the sweet stuff, remember that fruits are good but they are Sweet also. (5) Hypothyroid: Code(s): E03.9 - Hypothyroidism, unspecified Category: Medical Qualifiers: Hypothyroidism type: acquired Qualified Code(s): E03.9 - Hypothyroidism, unspecified Plan: Continue with thyroid medication (6) Hypercholesterolemia: Code(s): E78.00 - Pure hypercholesterolemia, unspecified Category: Medical Plan: Avoid fried foods, chicken skin, eggs, butter margarine, pastries and meat. Be it pork or beef they have a lot of cholesterol LDL goal of less than 70 and triglyceride of less than 150 on Zetia and rosuvastatin (7) Hypertension: Code(s): I10 - Essential (primary) hypertension Category: Medical Qualifiers: Hypertension type: essential hypertension Qualified Code(s): I10 - Essential (primary) hypertension Plan: Continue with blood pressure medication. Decrease salt intake and exercise on losartan 50 mg once a day hydrochlorothiazide 12.5 mg once a day (8) Coronary artery disease: Comment: Noted on CT scan 04/2024 Code(s): I25.10 - Atherosclerotic heart disease of [place] coronary artery without angina pectoris Category: Medical Qualifiers: Associated angina: without angina Coronary Disease-Associated Artery/Lesion type: [place] artery [place] vs. transplanted heart: [place] heart Qualified Code(s): I25.10 - Atherosclerotic heart disease of [place] coronary artery without angina pectoris Plan: Control the cholesterol, weight, blood pressure, on aspirin 81 mg once a day (9) Pulmonary nodule: Comment: ( stable in [facility] Lung Screening program) March 2024 Code(s): R91.1 - Solitary pulmonary nodule Category: Medical Plan: Lung cancer screening program March 2024 (10) Colon cancer screening: Code(s): Z12.11 - Encounter for screening for malignant neoplasm of colon Category: Medical Plan: Patient is reminded about colon cancer screening (11) Erectile dysfunction: Code(s): N52.9 - Male erectile dysfunction, unspecified Category: Medical Plan History of Present Illness The patient is a 73-year-old male presenting for a follow-up visit. He has experienced a weight loss of 10 pounds since July, which is notable given his history of being overweight. The patient quit smoking in 2007 and has a history of chronic conditions including GERD, COPD, hypothyroidism, hypercholesterolemia, coronary artery disease, hypertension, and bipolar disorder. He reports improved health and reduced discomfort following weight loss achieved through a ketogenic diet. His most recent blood work from July revealed chronic microcytic anemia, mild thrombocytopenia, and leukopenia, with slightly low sodium levels. CT scan of the chest indicated mild emphysema and pulmonary nodules, for which he is under lung cancer screening without the use of Advair. The patient's hypertension and coronary artery disease are managed with losartan, hydrochlorothiazide, and aspirin, while cholesterol levels are controlled with rosuvastatin. He remains on thyroid medication and maintains a stable GERD condition. He inquires about renewing Viagra prescriptions due to past effectiveness. The patient has no recent issues with constipation or blood in stools and is scheduled for an upcoming [place] appointment for benefits maintenance, despite facing transportation challenges. Additionally, he is mindful of staying hydrated, considering his keto diet, to prevent low sodium levels. Health Maintenance - Lung cancer screening program participation, next CT scan due as per regular intervals. - Thyroid function monitored and thyroid medication continued. - LDL cholesterol target <70 mg/dL, triglycerides target <150 mg/dL; current therapy with rosuvastatin. - Blood pressure controlled with losartan 50 mg daily and hydrochlorothiazide 12.5 mg daily. - Continued aspirin 81 mg daily for coronary artery disease. - Emphasis on colon cancer screening with prior colonoscopy noted in 2013. - Discussed hydration balance to address low sodium levels. - Encouragement of weight management through ketogenic diet. - Tetanus immunization confirmed as May of the current year. - Acknowledgment of flu and RSV vaccination status as up to date. Social History - Quit smoking in 2007. - Following a ketogenic diet for weight management. - Reports substantial weight loss, switching from a 2XL to a large size shirt. - A history of transportation challenges affecting appointment adherence. - Potential requirement for Viagra discussed based on previous use. - [facility] benefits maintenance and related appointments acknowledged. Review of Systems - General: Denies fatigue, weight loss reported. - Respiratory: Denies shortness of breath, reports history of COPD and stabilized emphysema. - Gastrointestinal: Denies constipation, denies blood in stools, GERD stabiliz ed. - Cardiovascular: Denies chest pain, reports hypertension is managed. - Musculoskeletal: Reports decreased knee and back pain. - Neurological: Denies headaches or fainting episodes. - Psychiatric: Anxiety level reportedly decreased. Physical Exam - Respiratory- Breath sounds normal, no adventitious sounds noted. - Musculoskeletal- Good muscle definition observed, no swelling reported. - Skin- Observed for muscle definition during short attire wear. Results - Labs: Blood work (August 14), chronic microcytic anemia, mild thrombocytopenia, leukopenia, sodium at 132 mEq/L. - Tests: CT scan (March 2024), revealing mild emphysema, and tiny pulmonary nodules. Plan 1. 5 mg as daily doses. For coronary artery disease, daily aspirin 81 mg is continued. The patient is enrolled in lung cancer screening due to a history of smoking and ongoing emphysema surveillance: Discussion regarding Viagra includes readability for prescription renewal contingent on insurance coverage, with the patient informed about alternative procurement through the [place] should regular pharmacy dispense fail. The patient's blood results show anemia and electrolyte imbalance, emphasizing care with dietary sodium and water intake. Patient was informed and verbally consented to the use of an ambient scribe for clinic note documentation during this visit. Discussion Notes During this visit, we reviewed the patient's ongoing health management, including pertinent conditions such as GERD, thyroid function, and cholesterol levels. I explained the significance of weight management achieved through his ketogenic diet, correlating it with improved physical well-being. We reviewed his blood work findings, underscoring the continued need for monitoring anemia and sodium levels. For COPD, enrollment in a lung cancer screening program serves to evaluate emphysema and pulmonary nodules over time, aligning with his smoking cessation history. We deliberated on prescription renewal options for Viagra, assessing past efficacy and outlining availability through the [place] if usual pharmacy avenues prove restrictive. I explained the measures for maintaining hypertension and coronary artery disease under current pharmacologic regimens, cementing compliance as crucial. Patient Instructions - Continue the ketogenic diet, focusing on appropriate hydration. - Follow up on cholesterol levels and thyroid function as scheduled. - Adhere to prescribed medications for hypertension and coronary artery disease. - Maintain participation in the lung cancer screening program. - Schedule colon cancer screening when due. - Consider obtaining Viagra through the [facility] if insurance issues arise. - Monitor for any changes in symptoms or side effects from medications. - Notify of any new symptoms or concerns promptly. - Follow up with the [facility] appointment as scheduled to maintain benefits. Orders: Orders Comprehensive Met. Panel Today I25.10 - Atherosclerotic heart disease of [place] coronary artery without angina pectoris Free T4 (Free Thyroxine) Today I25.10 - Atherosclerotic heart disease of [place] coronary artery without angina pectoris Lipid Panel Today E78.00 - Pure hypercholesterolemia, unspecified, I25.10 - Atherosclerotic heart disease of [place] coronary artery without angina pectoris IRON PROFILE Today I25.10 - Atherosclerotic heart disease of [place] coronary artery without angina pectoris Vitamin B12 and Folate Today I25.10 - Atherosclerotic heart disease of [place] coronary artery without angina pectoris Thyroid Stimulating Hormone Today I25.10 - Atherosclerotic heart disease of [place] coronary artery without angina pectoris Hemoglobin A1c Today I25.10 - Atherosclerotic heart disease of [place] coronary artery without angina pectoris Testosterone, Total Today N52.9 - Male erectile dysfunction, unspecified Complete Blood Count Auto Diff Today I25.10 - Atherosclerotic heart disease of [place] coronary artery without angina pectoris Medications: New sildenafil administer 30 minutes to 4 hours before activity 100 mg PO DAILY PRN 14 tabs 5RF sexual activity N52.9 - Male erectile dysfunction, unspecified sildenafil administer 30 minutes to 4 hours before activity 100 mg PO DAILY PRN 14 tabs 5RF sexual activity N52.9 - Male erectile dysfunction, unspecified Changed From ferrous sulfate (FeroSul) 325 mg PO BID 180 tabs 0RF D64.9 - Anemia, unspecified To ferrous sulfate (FeroSul) 325 mg PO .QD 90 tabs 1RF D64.9 - Anemia, unsp ecified
--- OUTSIDE RECORDS SUMMARY | 2024-08-29 10:53 | XMS_ITS | Clinical Summary ---
Author Organization [facility] Address [address] [place] [address] Care Team Providers Care Quality Assurance Monitor Body Name Role Phone Unavailable Primary Care Provider [...]
--- OUTSIDE RECORDS SUMMARY | 2024-08-29 10:53 | XMS_ITS ---
Author Organization [facility] Address [address] [place] [address] Care Team Providers Care Flat Sorter Processor Name Role Phone Phuc Alvarez Primary Care Provider Vilma Torres [phone] REASON FOR VISIT Rs 08/22/24 Appt Encounters Encounter Location Date Provider Diagnosis [address] [place] [id number] 06/12/2024 Vilma Mcqueen Plan Of Treatment Next Appt Details Provider Name:Vilma lewis, 09/04/2024 02:45:00 PM, [address] [place], [id number], Progress Notes * Konrad VARELADOB:1950 ([age] yo M)Acc No.[id number]:06/12/2024 Patient:?AVERYKonrad :1950???Age:73 Y???Sex:Male Address:[address], [place], [address] * true * Date:? Generated for Janeti yusuf/Ronel/eTransmitting on:?08/29/2024 10:53 AM EDT
--- OUTSIDE RECORDS SUMMARY | 2024-08-29 10:54 | XMS_ITS | Patient Health Record ---
[facility] Address [address] [place] [address] Care Team Providers Care Diesel Dinkey Operator Name Role Phone Phuc Alvarez Primary Care Provider UnavailVilma Arias Unavailable [phone] Sawyer Molina Unavailable [phone] Barbara Rubi Unavailable [phone] Allergies Allergen (clinical drug ingredient) Drug/Non Drug [...] Active Immunizations Vaccine Route Administration Date [facility] Moderna Vaccine Unknown 02/12/2021 Administered [...] Polyneuropathy due to diabetes mellitus type I (259038361) Type 1 diabetes mellitus with diabetic polyneuropathy (E10.42) Active confirmed Problem Polyneuropathy due to type 2 diabetes mellitus (171845331) Type 2 diabetes mellitus with diabetic polyneuropathy (E11.42) Active confirmed Problem Bilateral atherosclerosis of arteries of lower limbs (disorder) (70720212740019742 ) Unspecified atherosclerosis of [place] arteries of extremities, bilateral legs (I70.203) Active confirmed Vital Signs Blood pressure diastolic 60 mm Hg 06/05/2024 Height 3at90jr in 06/05/2024 Blood pressure systolic 110 mm Hg 06/05/2024 Weight 205 lbs 06/05/2024 BMI 28.59 kg/m2 06/05/2024 Procedures Procedure Date Ordered Date Performed Result Body Sit e 40028-PRVOAJN NAIL, 6 OR MORE 03/22/2024 N/A 76479-LXAQ SKIN LESIONS, 2 TO 4 03/22/2024 N/A Encounters Encounter Location Date Provider Diagnosis [address] [address] 09/19/2023 Sawyer Molina Tinea unguium B35.1 ; Pain in right toe(s) M79.674 ; Pain in left toe(s) M79.675 ; Unspecified atherosclerosis of [place] arteries of extremities, bilateral legs I70.203 and Xerosis cutis L85.[address] [address] 12/14/2023 Sawyer Molina Tinea unguium B35.1 ; Pain in right toe(s) M79.674 ; Pain in left toe(s) M79.675 ; Unspecified atherosclerosis of [place] arteries of extremities, bilateral legs I70.203 and Xerosis cutis L85.[address] [address] 03/22/2024 Barbara Rubi Tinea unguium B35.1 ; Type 2 diabetes mellitus with diabetic polyneuropathy E11.42 and Unspecified atherosclerosis of [place] arteries of extremities, bilateral legs I70.[address] [address] 06/05/2024 Vilma Mcqueen Type 2 diabetes mellitus with diabetic polyneuropathy E11.42 ; Tinea pedis of both feet B35.3 ; Tinea unguium B35.1 and Unspecified atherosclerosis of [place] arteries of extremities, bilateral legs I70.203 [facility] [address] [address] 06/12/2024 Vilma Mcqueen Assessments Encounter Date Diagnosis [...] (ICD-10 - B35.1) 03/22/2024 Unspecified atherosclerosis of [place] arteries of extremities, bilateral legs (ICD-10 - I70.203) 12/14/2023 Pain in right toe(s) (ICD-10 - M79.674) 09/19/2023 Pain in right toe(s) (ICD-10 - M79.674) 09/19/2023 Pain in left toe(s) (ICD-10 - M79.675) 12/14/2023 Pain in left toe(s) (ICD-10 - M79.675) 06/05/2024 Unspecified atherosclerosis of [place] arteries of extremities, bilateral legs (ICD-10 - I70.203) 12/14/2023 Unspecified atherosclerosis of [place] arteries of extremities, bilateral legs (ICD-10 - I70.203) 09/19/2023 Unspecified atherosclerosis of [place] arteries of extremities, bilateral legs (ICD-10 - I70.203) 09/19/2023 Xerosis cutis (ICD-10 - L85.3) 12/14/2023 Xerosis cutis (ICD-10 - L85.3) Plan Of Treatment Pending Test Test Name Order Date 16718-MPSYVLF NAIL, 6 OR MORE 03/22/2024 76558-EVTD SKIN LESIONS, 2 TO 4 03/22/20 24 74128-YCEU SKIN LESIONS, 2 TO 4 06/15/19 22 51332-FMUM SKIN LESIONS, 2 TO 4 09/10/19 Next Appt Details Provider Name:Vilma lewis, 09/04/2024 02:45:00 PM, [address] [place] [address], [place], [address], Insurance Providers Payer Name Payer Address Payer Phone Subscriber Number Group Number Insured Name Patient Relationship to Insured Coverage Start Date Coverage End Date [facility] [employer] Claims [address] IRINEO Thakur [id number] Konrad Varela Self - patient is the insured Medical (General) History Medical History History ICD Code Back,Hip,and Knee pain Broken bones CAD (Cholesterol) Cataracts High blood pressure Reflux ( GERD) thyroid Measles Mumps Chicken pox Joint implants/screws atrial sclerosis Surgical History Surgery Date(Month/Year) neck surgery 2019? nose 2001
--- OUTSIDE RECORDS SUMMARY | 2024-08-29 10:54 | XMS_ITS ---
[facility] Address [address] [place] [address] Care Team Providers Care Industrial X Ray Operator Name Role Phone Phuc Alvarez Primary Care Provider Vilma Torres Unavailable [phone] Allergies Allergen (clinical drug ingredient) Drug/Non Drug [...] Notes Tobacco use: Nonsmoker Vital Signs Height 9xz47ax in 06/05/2024 Weight 205 lbs 06/05/2024 BMI 28.59 kg/m2 06/05/2024 Blood pressure systolic 110 mm Hg 06/05/19 25 Blood pressure diastolic 60 mm Hg 025 Encounters Encounter Location Date Provider Diagnosis [facility] [address] [place] [address] 06/05/2024 Vilma Mcqueen Type 2 diabetes mellitus with diabetic polyneuropathy E11.42 ; Tinea pedis of both feet B35.3 ; Tinea unguium B35.1 and Unspecified atherosclerosis of [place] arteries of extremities, bilateral legs I70.203 Assessments Encounter Date Diagnosis (ICD Code) Assessment Notes Treatment Notes Treatment Clinical Notes Section Notes 06/05/2024 Type 2 diabetes mellitus with diabetic polyneuropathy (ICD-10 - E11.42) 06/05/2024 Tinea pedis of both feet (ICD-10 - B35.3) 06/05/2024 Tinea unguium (ICD-10 - B35.1) 06/05/2024 Unspecified atherosclerosis of [place] arteries of extremities, bilateral legs (ICD-10 - I70.203) Plan Of Treatment Medication Medication Name Sig Start Date Stop Date Notes Ciclopirox Olamine 0.77 % 1 application Externally Twice a day to skin of feet including between the toes for 30 days Next Appt Details Follow Up: 3 Months, Reason: Provider Name:Vilma lewis, 09/04/2024 02:45:00 PM, [address] [place] [address], [address], Procedure Notes * Category Sub-Category Detail Notes [...] use of a nail nipper and/or dremel-type die grinder, to a more viable healthy nail [...] to maintain effectiveness in symptomatic relief - 47747 Keratoma Treatment Parring or Cutting o f [...] instrumentation by the physician of record - 34992 Progress Notes * Konrad VARELADOB:1950 ([age] yo M)Acc No.[id number]:06/05/2024 Progress Note Patient:Konrad BATES Provider:?Vilma Mcqueen DPM :1950???Age:73 Y???Sex:Male Manpreet e:06/05/2024 Address:[address] [place] [address] [address], [place] [id number] Pcp:Phuc Alvarez Subjective: * Chief Complaints: * [...] anaphylaxis - Allergyyes[Allergies Verified] Objective: * Vitals:?Ht: 1pt12rk, Wt:205, BMI:28.59, Shoe size: 10, BP:110/60mm Hg, [...] management (4)???3.?Tinea unguium - B35.1???4.?Unspecified atherosclerosis of [place] arteries of extremities, bilateral legs - I70.203??? [...] use of a nail nipper and/or dremel-type die grinder, to a more viable healthy nail [...] to maintain effectiveness in symptomatic relief - 32567.?Keratoma Treatment:?Parring or Cutting of Benign Hyperkeratotic Lesion(s)?(-57) [...] instrumentation by the physician of record - 95514.? * Procedure Codes:?08177 DEBRI DE NAIL, 6 OR MORE, Modifiers: XS 37662 TRIM SKIN LESIONS, OVER 4, Modifiers: XS [...] Mcqueen DPM Date:? Generated for Imani goldberg/Ronel/Kushal on:?08/29/2024 10:53 AM EDT History and Physical Notes * HPI [...]
--- OUTSIDE RECORDS SUMMARY | 2024-08-29 10:54 | XMS_ITS ---
Author Organization [facility] Address [address] [place] [address] Care Team Providers Care College Tutor Name Role Phone Phuc Alvarez Primary Care Provider Vilma Torres [phone] Encounters Encounter Location Date Provider Diagnosis [address] [address] 08/22/2024 Vilma Mcqueen Plan Of Treatment Next Appt Details Provider Name:Vilma lewis, 09/04/2024 02:45:00 PM, [address] [place] [address], [phone], Progress Notes * Konrad VAERLADOB:1950 ([age] yo M)Acc No.[id number]:08/22/2024 Progress Note Patient:?Konrad VARELA Provider:?Vilma Mcqueen DPM :1950???Age:73 Y???Sex:Male Manpreet e:08/22/2024 Address:[address] [place] [address] [address], [facility] Pcp:Phuc Alvarez Subjective: * Chief Complaints: * ??? * Medical History:? Objective: * Vitals:? Assessment: Plan: * Treatment: * Images: * The named appointment provid er may or may not be the originator of this progress note, and it is not deemed complete until electronically signed by the appointment provider. Sign off status: Pending * Provider:?Vilma Mcqueen DPM Date:?10/2024 Generated for Imani goldberg/Ronel/Kushal on:?08/29/2024 10:53 AM EDT
== END 2024-08-29 10:54 | disposition home or self-care (01) ==
LOC: HO.HMCH 10:02
PROVIDERS: PCP Internal Medicine; Visit Provider Internal Medicine
DX: K21.9 Gastro-esophageal reflux disease without esophagitis (principal); Z87.891 Personal history of nicotine dependence; J43.9 Emphysema, unspecified; R73.02 Impaired glucose tolerance (oral); E03.9 Hypothyroidism, unspecified; E78.00 Pure hypercholesterolemia, unspecified; I10 Essential (primary) hypertension; I25.10 Atherosclerotic heart disease of native coronary artery without angina pectoris; R91.1 Solitary pulmonary nodule; Z12.11 Encounter for screening for malignant neoplasm of colon; N52.9 Male erectile dysfunction, unspecified

== ENCOUNTER → 2024-08-29 10:01 | Outpatient (BNVA) | payer OTHER, SELFPAY | PROVIDERS: PCP Internal Medicine; Visit Provider Internal Medicine | DX: K21.9 Gastro-esophageal reflux disease without esophagitis (principal); I25.10 Atherosclerotic heart disease of native coronary artery without angina pectoris; J43.9 Emphysema, unspecified; R73.02 Impaired glucose tolerance (oral); E03.9 Hypothyroidism, unspecified; E78.00 Pure hypercholesterolemia, unspecified; I10 Essential (primary) hypertension; R91.1 Solitary pulmonary nodule; N52.9 Male erectile dysfunction, unspecified; F31.9 Bipolar disorder, unspecified; D64.9 Anemia, unspecified; Z87.891 Personal history of nicotine dependence; Z79.899 Other long term (current) drug therapy | CPT/HCPCS: 96127; 99212 ==

== ENCOUNTER 2025-01-18 11:21 | Outpatient (REF) | payer OTHER, SELFPAY ==
--- OUTSIDE RECORDS SUMMARY | 2024-08-22 11:15 | XMS_ITS ---
Author Organization [facility] Address [address] [place] [address] Care Team Providers Care Inspecting And Testing Lead Hand Name Role Phone Phuc Alvarez Primary Care Provider Vilma Torres [phone] Encounters Encounter Location Date Provider Diagnosis [address] [address] 08/22/2024 Vilma Mcqueen Plan Of Treatment Next Appt Details Provider Name:Barbara Pino prince, 03/07/2025 02:30:00 PM, [address] [place] [address], [phone], Provider Name:Barbara Pino prince, 05/16/2025 02:30:00 PM, [address] [place] [address], [phone], Progress Notes * Konrad JUDGEDOB:1950 ([age] yo M)Acc No.[id number]:08/22/2024 Progress Note Patient: Konrad MERIDA Provider: Sander Mcqueen DPM :1950 A ge:73 Y S ex:Male Date:08/22/2024 Address:[address] [place] [address], [address], [place], [place] Pcp:Phuc Alvarez Subjective: * Chief Complaints: * * Medical History: Objective: * Vitals: Assessment: Plan: * Treatment: * Images: * The named appointment provid er may or may not be the originator of this progress note, and it is not deemed complete until electronically signed by the appointment provider. Sign off status: Pending * Provider: Sander Mcqueen DPM Date: 0 08/22/2024 Generated for Imani goldberg/Ronel/Kushal on: 1 12:32 PM EDT
--- OUTSIDE RECORDS SUMMARY | 2024-09-04 10:45 | XMS_ITS ---
Author Organization [facility] Address [address] [place] [address] Care Team Providers Care Date Night Caregiver Name Role Phone Phuc Alvarez Primary Care Provider Vilma Torres [phone] Champion Encounters Encounter Location Date Provider Diagnosis [address] [address] 09/04/2024 Vilma Mcqueen Plan Of Treatment Next Appt Details Provider Name:Barbara morrison, 03/07/2025 02:30:00 PM, [address] [place] [address], [phone], Provider Name:Barbara morrison, 05/16/2025 02:30:00 PM, [address] [place] [address], [phone], Progress Notes * Konrad JUDGEDOB:1950 ([age] yo M)Acc No.[id number]:09/04/2024 Progress Note Patient: Konrad MERIDA Provider: Sander Mcqueen DPM :1950 A ge:73 Y S ex:Male Date:09/04/2024 Address:[address] [facility], [address], [place], [place] Pcp:Phuc Alvarez Subjective: * Chief Complaints: * [...] 09/04/2024 Generated for Imani goldberg/Ronel/Kushal on: 1 12:32 PM EDT
--- OUTSIDE RECORDS SUMMARY | 2024-11-14 07:30 | XMS_ITS ---
Author Organization [facility] Address [address] [place] [address] Care Team Providers Care Ebd Special Education Teacher Name Role Phone Phuc Alvarez Primary Care Provider Vilma Torres [phone] Encounters Encounter Location Date Provider Diagnosis [address] [address] 11/14/2024 Vilma Mcqueen Plan Of Treatment Next Appt Details Provider Name:Barbara Pino prince, 03/07/2025 02:30:00 PM, [address] [place] [address], [phone], Provider Name:Barbara Pino prince, 05/16/2025 02:30:00 PM, [address] [place] [address], [phone], Progress Notes * Konrad VARELADOB:1950 ([age] yo M)Acc No.[id number]:11/14/2024 Progress Note Patient: Konrad MERIDA Provider: Sander Mcqueen DPM :1950 A ge:73 Y S ex:Male Date:11/14/2024 Address:[address] [place] [address], [address], [place], [place] Pcp:Phuc Alvarez Subjective: * Chief Complaints: * [...] 11/14/2024 Generated for Imani goldberg/Ronel/Kushal on: 1 12:32 PM EDT
[2025-01-18 11:37] LABS: MANUAL DIFF FLAG NO
[2025-01-18 11:57] LABS: Hematocrit 37.5 % (42.0-52.0); Hemoglobin 12.3 g/dl (14.0-18.0); Imm Gran Abs Auto 0.02 X10*3/uL (0.00-0.03); Imm Gran Pct Auto 0.5 % (0.0-0.4); Lymphocytes Absolute Auto 1.0 X10*3/uL (1.2-4.9); Mean Corpuscular HGB Conc 32.8 g/dl (31.0-36.0); Mean Corpuscular Hemoglobin 33.4 pg (27.0-33.0); Mean Corpuscular Volume 101.9 fL (80.0-98.0); NRBC Abs Auto 0.000 X10*3/uL (0.0-0.012); NRBC Pct Auto 0.0 /100WBC (0.0-0.2); Platelet Count 155 X10*3/uL (160-400); Red Blood Count 3.68 X10*6/uL (4.60-5.80); White Blood Count 3.8 X10*3/uL (4.8-10.8)
--- OUTSIDE RECORDS SUMMARY | 2025-01-18 12:32 | XMS_ITS | Clinical Summary ---
Author Organization [facility] Address [address] [place] [address] Care Team Providers Care Sitecore Developer Name Role Phone Unavailable Primary Care Provider Unavailabl e Immunizations Immunization Administration Dates Next Due COVID-19, mRNA (Moderna [...] Screening 1950 DTaP/Tdap/Td (1 - Tdap) 12/22/1967 COVID-19 Vaccine ( season) 2024 02/12/2021, 07/30/2020, 07/02/2020 Influenza (#1) 2024 12/29/2020, 03/19, 02/26/2020, Additional history exists RSV (1 - 1-dose 75+ series) 2024 Zoster (Shingrix) Completed 05/18/2019, 04/02/2019 Pneumococcal 50+ years Completed 04/07/2020, 2015 Abdominal Aorta Imaging Discontinued HPV Vaccine (No Doses Required) Completed Hep A Aged Out No longer eligi [...]
--- OUTSIDE RECORDS SUMMARY | 2025-01-18 12:32 | XMS_ITS | Patient Health Record ---
Author Organization [facility] Address [address] [place] [address] Care Team Providers Care Ironworker Wire Fence Erector Name Role Phone Phuc Alvarez MD Primary Care Provider Prabhu Skinner Jr Unavailable [phone] Allergies Allergen (clinical drug ingredient) Drug/Non Drug Allergy documented on EMR Reaction Allergy Type Onset Date Status erythromycin Erythromycin Unknown Drug Allergy A ctive seasonal (uncoded) Unknown Allergy A ctive Reason For Referral No Information Medications Medication SIG (Take, Route, Frequency, Duration) Notes Start Date End Date Status MiraLax (colon prep) 8.3 oun ce ((238) grams mixed with Gatorade or Crystal Light orally begin at 5:00 p.m. the day before the procedure for 1 day 06/21/2019 Active traMADol HCl 50 MG 1 tablet on the tongue and allow to dissolve as needed Orally every 6 hrs Active Omeprazole 20 MG 1 capsule Orally Onc e a day Active Banophen 50 MG 1 capsule at bedtime as needed Orally Once a day for 30 day(s) Active Levothyroxine Sodium 125 MCG 1 tablet on an empty stomach in the morning Orally Once a day Active Cerovite Jr - as directed Orally once a day Active Lisinopril 40 MG 1 tablet Orally Once a day Active Ezetimibe 10 MG 1 tablet Orally Once a day for 30 day(s) Active ALPRAZolam 0.25 MG 1 tablet Orally Twic e a day Active hydroCHLOROthiazide 12.5 MG 1 capsule in the morning Orally Once a day for 30 day(s) Active Cetirizine HCl 10 MG 1 tablet Orally Onc e a day Active Aspir-81 81 MG 1 tablet Orally Once a day Active Atorvastatin Calcium 80 MG 1 tablet Oral ly Once a day Active Reguloid 400 MG as directed Orally once a day Active Vitamin D 2000 UNIT 1 tablet Orally Once a day Active Fluticasone Propionate 50 MCG/ACT 1 spray in each nostril Nasally Once a day for 30 day(s) Active Senexon-S 8.6-50 MG 1 tablet in the evening as needed Orally Once a day Active Docusate Sodium 100 MG 1 capsule as need ed Orally Once a day Active Immunizations Vaccine Route Administration Date Status Comme nts Influenza Unknown 12/17/2018 Administered Problems Problem Type SNOMED Code ICD Code Onset Dates Problem Status W/U Status Risk Notes Problem 143896829 Colon cancer screening (Z12.11) Active confirmed Problem 65526812 Slow transit constipation (K59.01) Active confirmed Problem 697748435 Gastroesophageal reflux disease without esophagitis (K21.9) Active confirmed Plan Of Treatment Future Test Test Name Order Date COLONOSCOPY 07/26/2013 COLONOSCOPY 06/21/2019 Insurance Providers Payer Name Payer Address Payer Phone Subscriber Number Group Number Insured Name Patient Relationship to Insured Coverage Start Date Coverage End Date [facility] [address] [place] [address] [id number] ZENA JUDGE Self - patient is the insured Medical (General) History Medical History History ICD Code PTSD hypothyroid seasonal allergic rhinitis BPH aortiic scoliosis microscopic nodules under 2mm and 5 mm i n lungs. hypertension Surgical History Surgery Date(Month/Year) neck surgery removed nasal polyp-right surgery on penis prostae bph
--- OUTSIDE RECORDS SUMMARY | 2025-01-18 12:32 | XMS_ITS | Patient Health Record ---
[facility] Address [address] [place] [address] Care Team Providers Care Associate Store Leader Name Role Phone Phuc Alvarez Primary Care Provider Vilma Torres Unavailable [phone] Barbara Rubi Unavailable [phone] Allergies Allergen (clinical drug ingredient) Drug/Non Drug Allergy documented on EMR Reaction Allergy Type Onset Date Status seasonal (uncoded) Unknown Allergy A ctive azithromycin Zithromax Z-Joaquín anaphylaxis Drug Allergy Active erythromycin Erythromycin anaphylaxis Drug Allergy Active Results Component Value Reference Range Notes HEMOGLOBIN A1C (GLYCOHEMOGLO BIN) Reviewed date:12/24/2024 01:57:21 PM Interpretation: Performing Lab: Notes/Report: HEMOGLOBIN A1C % (HH) 4.9 HEMOGLOBIN A1C (GLYCOHEMOGLO BIN) Reviewed date:10/05/2024 01:46:03 PM Interpretation: Performing Lab: Notes/Report: HEMOGLOBIN A1C % (HH) 4.9 Reason For Referral No Information Medications Medication SIG (Take, Route, Frequency, Duration) Notes Start Date End Date Status ALPRAZolam 0.25 MG 1 tablet Orally Twice a day Active Lisinopril 40 MG 1 tablet Orally Once a day; Duration: 30 day(s) Active Acetaminophen 500 MG 1 capsule as needed Orally every 6 hrs Active Levothyroxine Sodium 125 MCG 1 tablet in the morning on an empty stomach Orally Once a day; Duration: 30 day(s) Active Melatonin 3 MG 1 tablet at bedtime as needed Orally Once a day Active hydroCHLOROthiazide 12.5 MG 1 capsule in the morning Orally Once a day; Duration: 30 day(s) Active Amoxicillin-Pot Clavulanate 875 875-125 MG one tab Orally every 12 hrs; Duration: 10 day(s) Not-Taking diphenhydrAMINE HCl Active Fluticasone Propionate 50 MCG/ACT 1 spray in each nostril Nasally Once a day; Duration: 30 day(s) Active Senna-Plus 8.6-50 MG 1 tablet in the evening as needed Orally Once a day; Duration: 30 day(s) Not-Taking FeroSul 325 (65 Fe) MG 1 tablet Orally Once a day; Duration: 30 day(s) Active Rosuvastatin Calcium 40 MG 1 tablet Orally Once a day; Duration: 30 day(s) Not-Taking Ciclopirox Olamine 0.77 % 1 application Externally Twice a day to skin of feet including between the toes; Duration: 30 days Not-Taking Ezetimibe 10 MG 1 tablet Orally Once a day; Duration: 30 day(s) Active Docusate Sodium 100 MG 1 capsule as needed Orally Once a day; Duration: 30 day(s) Active Acyclovir 400 MG 1 tablet Orally Twice a day; Duration: 10 day(s) 03/22/2024 Not-Taking Cerovite Senior - as directed Orally Active Vitamin D Active Cetirizine HCl 10 MG 1 tablet Orally Once a day; Duration: 30 day(s) Active traMADol HCl 50 MG 1 tablet as needed Orally Once a day Active Banophen 50 MG 1 capsule at bedtime as needed Orally Once a day; Duration: 30 day(s) Benadryl Active Reguloid 400mg capsule Active Aspir-Low 81 MG 1 tablet Orally Once a day; Duration: 30 day(s) Active Omeprazole 20 MG 1 capsule 30 minutes before morning meal Orally Once a day; Duration: 30 day(s) Active Immunizations Vaccine Route Administration Date Status Comme nts COVID-19 Moderna Vaccine Unknown 02/12/2021 Administered 1st [...] (Standard) Question Answer Notes Tobacco use: Nonsmoker Additional Findings: Tobacco non-user Current no nsmoker AUDIT-C (Standard) Question Answer Notes Did you have a drink contain ing alcohol in the past year? Yes How often did you have a dri nk containing alcohol in the past year? 2 to 4 times a month (2 points) How many drinks did you have on a typical day when you were drinking in the past year? 1 or 2 drinks (0 point) How often did you have six o r more drinks on one occasion in the past year? Never (0 point) Points 2 Interpretation Negative Problems Problem Type SNOMED Code ICD Code Onset Dates Problem Status W/U Status Risk Notes Problem Polyneuropathy due to diabetes mellitus type I (912844550) Type 1 diabetes mellitus with diabetic polyneuropathy (E10.42) Active confirmed Problem Polyneuropathy due to type 2 diabetes mellitus (532391085) Type 2 diabetes mellitus with diabetic polyneuropathy (E11.42) Active confirmed Problem Bilateral atherosclerosis of arteries of lower limbs (disorder) (68998373404617437 ) Unspecified atherosclerosis of upper [place] arteries of extremities, bilateral legs (I70.203) Active confirmed Vital Signs Blood pressure diastolic 60 mm Hg 12/24/2024 Height 5ft 11in in 12/24/2024 Blood pressure systolic 110 mm Hg 12/24/2024 Weight 198 lbs 12/24/2024 BMI 27.61 kg/m2 12/24/2024 Procedures Procedure Date Ordered Date Performed Result Body Sit e 49089-HHCPISX NAIL, 6 OR MORE 03/22/2024 N/A 14833-ZFRW SKIN LESIONS, 2 TO 4 03/22/2024 N/A Encounters Encounter Location Date Provider Diagnosis [facility] [address] 03/22/2024 Barbara Rubi Tinea unguium B35.1 ; Type 2 diabetes mellitus with diabetic polyneuropathy E11.42 and Unspecified atherosclerosis of upper [place] arteries of extremities, bilateral legs I70. [facility] [address] 06/05/2024 Vilma Mcqueen Type 2 diabetes mellitus with diabetic polyneuropathy E11.42 ; Tinea pedis of both feet B35.3 ; Tinea unguium B35.1 and Unspecified atherosclerosis of upper [place] arteries of extremities, bilateral legs I70. [facility] [place] [address] [address] 10/05/2024 Barbara Rubi Type 2 diabetes mellitus with diabetic polyneuropathy E11.42 ; Tinea pedis of both feet B35.3 ; Tinea unguium B35.1 and Unspecified atherosclerosis of upper [place] arteries of extremities, bilateral legs I70.[address] [address] 12/24/2024 Barbara Rubi Type 2 diabetes mellitus with diabetic polyneuropathy E11.42 ; Tinea unguium B35.1 and Unspecified atherosclerosis of upper [place] arteries of extremities, bilateral legs I70.[address] [address] 06/12/2024 Vilma Mcqueen [address] [address] 08/31/2024 Vilma Mcqueen [address] [address] 12/24/2024 Vilma Mcqueen Assessments Encounter Date Diagnosis (ICD Code) Assessment Notes Treatment Notes Treatment Clinical Notes Section Notes 03/22/2024 Type 2 diabetes mellitus with diabetic polyneuropathy (ICD-10 - E11.42) 03/22/2024 Tinea unguium (ICD-10 - B35.1) 06/05/2024 Type 2 diabetes mellitus with diabetic polyneuropathy (ICD-10 - E11.42) 06/05/2024 Tinea pedis of both feet (ICD-10 - B35.3) 10/05/2024 Type 2 diabetes mellitus with diabetic polyneuropathy (ICD-10 - E11.42) 10/05/2024 Tinea pedis of both feet (ICD-10 - B35.3) 12/24/2024 Type 2 diabetes mellitus with diabetic polyneuropathy (ICD-10 - E11.42) 12/24/2024 Tinea unguium (ICD-10 - B35.1) 12/24/2024 Unspecified atherosclerosis of upper [place] arteries of extremities, bilateral legs (ICD-10 - I70.203) 06/05/2024 Tinea unguium (ICD-10 - B35.1) 10/05/2024 Tinea unguium (ICD-10 - B35.1) 03/22/2024 Unspecified atherosclerosis of upper [place] arteries of extremities, bilateral legs (ICD-10 - I70.203) 06/05/2024 Unspecified atherosclerosis of upper [place] arteries of extremities, bilateral legs (ICD-10 - I70.203) 10/05/2024 Unspecified atherosclerosis of upper [place] arteries of extremities, bilateral legs (ICD-10 - I70.203) Plan Of Treatment Pending Test Test Name Order Date [id number] NAIL, 6 OR MORE 03/22/2024 12607-MKAW SKIN LESIONS, 2 TO 4 03/22/20 02479-STNQ SKIN LESIONS, 2 TO 4 06/15/19 39624-BQBL SKIN LESIONS, 2 TO 4 09/10/19 Next Appt Details Provider Name:Barbara Pino prince, 03/07/2025 02:30:00 PM, [address] [place] [address], [phone], Provider Name:Barbara Pino prince, 05/16/2025 02:30:00 PM, [address] [place] [address], [phone], Insurance Providers Payer Name Payer Address Payer Phone Subscriber Number Group Number Insured Name Patient Relationship to Insured Coverage Start Date Coverage End Date [facility] Claims [address] [place] Thakur [id number] Konrad Varela Self - patient is the insured Medical (General) History Medical History History ICD Code Back,Hip,and Knee pain Broken bones CAD (Cholesterol) Cataracts High blood pressure Reflux ( GERD) thyroid Measles Mumps Chicken pox Joint implants/screws atrial sclerosis Surgical History Surgery Date(Month/Year) neck surgery 2019? nose 2001 cataract surgery 2024
[2025-01-18 12:33] LABS: Alanine Aminotransferase 51 U/L (0-40); Albumin Level 4.4 g/dL (3.5-5.0); Anion Gap 8 (12-20); Aspartate Amino Transferase 46 U/L (5-37); Blood Urea Nitrogen 19 mg/dL (9-16); Calcium 9.3 mg/dL (8.4-10.2); Carbon Dioxide 30 mmol/L (22-29); Chloride 105 mmol/L (96-108); Cholesterol 127 mg/dL (<200); Estimated Glomerular Filt Rate > 60; Iron 93 mcg/dL (45-160); Percent Iron Saturation 38 % (15-50); Potassium 4.4 mmol/L (3.3-5.1); Sodium 139 mmol/L (135-145); Total Iron Binding Capacity 246 mcg/dL (228-428); Total Protein 6.8 g/dL (6.5-8.0); Triglycerides 74 mg/dL (<150); Unsaturated Iron Binding 153 ug/dL
[2025-01-18 12:34] LABS: Alkaline Phosphatase 86 U/L (39-117); HDL Cholesterol 61 mg/dL (>40)
[2025-01-18 12:51] LABS: Free T4 (Free Thyroxine) 1.12 ng/dL (0.71-1.85); Thyroid Stimulating Hormone 2.46 uIU/mL (0.32-4.0)
[2025-01-18 12:57] LABS: Folate 17.4 ng/mL (> or = 4.0); Vitamin B12 669 pg/mL (200-900)
== END 2025-01-18 11:22 | disposition home or self-care (01) ==
LOC: HO.LAB 11:21
PROVIDERS: PCP Internal Medicine; Visit Provider Internal Medicine
DX: I25.10 Atherosclerotic heart disease of native coronary artery without angina pectoris (principal); N52.9 Male erectile dysfunction, unspecified; E78.00 Pure hypercholesterolemia, unspecified; Z13.1 Encounter for screening for diabetes mellitus; Z13.0 Encounter for screening for diseases of the blood and blood-forming organs and certain disorders involving the immune mechanism
CPT/HCPCS: 36415; 80053; 80061; 82607; 82746; 83036; 83540; 84403; 84439; 84443; 85025

== ENCOUNTER 2025-02-01 13:15 | Outpatient (AMB) | payer OTHER, SELFPAY ==
--- OUTSIDE RECORDS SUMMARY | 2024-02-22 10:30 | XMS_ITS ---
Author Organization [facility] Address [address] [place] [address] Care Team Providers Care Raw Stock Machine Loader Name Role Phone Phuc Alvarez Primary Care Provider Vilma Torres Unavailable [phone] Barbara Rubi [phone] REASON FOR VISIT ins not approved yet Encounters Encounter Location Date Provider Diagnosis [address] [id number] 02/22/2024 Barbara Rubi Plan Of Treatment Next Appt Details Provider Name:Barbara morrison, 03/07/2025 02:30:00 PM, [address] [place] [address], [phone], Provider Name:Barbara morrison, 05/16/2025 02:30:00 PM, [address] [place] [address], [phone], Progress Notes * Konrad JUDGEDOB:1950 ([age] yo M)Acc No.[id number]:02/22/2024 Progress Note Patient: Konrad MERIDA Provider: Moises Rubi DPM :1950 A ge:73 Y S ex:Male Date:02/22/2024 Address:[address], [address], [place], [id number] Pcp:Phuc Alvarez Subjective: * Chief Complaints: * 1 . Ins not approved yet. * Medical History: Objective: * Vitals: Assessment: Plan: * Treatment: * Images: * The named appointment provid er may or may not be the originator of this progress note, and it is not deemed complete until electronically signed by the appointment provider. Sign off status: Pending * Provider: Moises Rubi DPM Date: 04/23/2023 Generated for Imani goldberg/Ronel/Kushal on: 03:55 PM EDT
--- OUTSIDE RECORDS SUMMARY | 2024-03-21 10:00 | XMS_ITS ---
Author Organization [facility] Address [address] [place] [address] Care Team Providers Care Hvac Instructor Name Role Phone Phuc Alvarez Primary Care Provider Vilma Torres Unavailable [phone] Barbara Rubi [phone] REASON FOR VISIT Seen Sooner Encounters Encounter Location Date Provider Diagnosis [address] [address] 03/21/2024 Barbara Rubi Plan Of Treatment Next Appt Details Provider Name:Barbara morrison, 03/07/2025 02:30:00 PM, [address] [place] [address], [phone], Provider Name:Barbara morrison, 05/16/2025 02:30:00 PM, [address] [place] [address], [phone], Progress Notes * Konrad JUDGEDOB:1950 ([age] yo M)Acc No.[id number]:03/21/2024 Progress Note Patient: Konrad MERIDA Provider: Moises Rubi DPM :1950 A ge:73 Y S ex:Male Date:03/21/2024 Address:[address] [facility], [address], [place], [place] Pcp:Phuc Alvarez Subjective: * Chief Complaints: * 1 . Seen Sooner. * Medical History: Objective: * Vitals: Assessment: Plan: * Treatment: * Images: * The named appointment provid er may or may not be the originator of this progress note, and it is not deemed complete until electronically signed by the appointment provider. Sign off status: Pending * Provider: Moises Rubi DPM Date: 05/22/2023 Generated for Imani goldberg/Ronel/Kushal on: 03:55 PM EDT
--- OUTSIDE RECORDS SUMMARY | 2024-05-31 12:00 | XMS_ITS ---
Author Organization [facility] Address [address] [place] [address] Care Team Providers Care Oriental Rug Repairer Name Role Phone Phuc Alvarez Primary Care Provider Vilma Torres Unavailable [phone] Barbara Rubi [phone] Champion Encounters Encounter Location Date Provider Diagnosis [address] [address] 05/31/2024 Barbara Rubi Plan Of Treatment Next Appt Details Provider Name:Barbara morrison, 03/07/2025 02:30:00 PM, [address] [place] [address], [phone], Provider Name:Barbara morrison, 05/16/2025 02:30:00 PM, [address] [place] [address], [phone], Progress Notes * Konrad JUDGEDOB:1950 ([age] yo M)Acc No.[id number]:05/31/2024 Progress Note Patient: Konrad MERIDA Provider: Moises Rubi DPM :1950 A ge:73 Y S ex:Male Date:05/31/2024 Address:[address] [facility], [address], [place], [place] Pcp:Phuc Alvarez Subjective: * Chief Complaints: * [address] Champion. * Medical History: Objective: * Vitals: Assessment: Plan: * Treatment: * Images: * The named appointment provid er may or may not be the originator of this progress note, and it is not deemed complete until electronically signed by the appointment provider. Sign off status: Pending * Provider: Moises Rubi DPM Date: 0 05/31/2024 Generated for Imani goldberg/Ronel/Kushal on: 1 03:55 PM EDT
--- OUTSIDE RECORDS SUMMARY | 2024-08-22 11:15 | XMS_ITS ---
Author Organization [facility] Address [address] [place] [address] Care Team Providers Care Tape Maker Name Role Phone Phuc Alvarez Primary Care Provider Vilma Torres [phone] Encounters Encounter Location Date Provider Diagnosis [address] [address] 08/22/2024 Vilma Mcqueen Plan Of Treatment Next Appt Details Provider Name:Barbara Pino prince, 03/07/2025 02:30:00 PM, [address] [place] [address], [phone], Provider Name:Barbara Pino prince, 05/16/2025 02:30:00 PM, [address] [place] [address], [phone], Progress Notes * Konrad VARELADOB:1950 ([age] yo M)Acc No.[id number]:08/22/2024 Progress Note Patient: Konrad MERIDA Provider: Sander Mcqueen DPM :1950 A ge:73 Y S ex:Male Date:08/22/2024 Address:[address] [place] [address], [address], [place], [place] Pcp:Phuc Alvarez Subjective: * Chief Complaints: * [...] DPM Date: 0 08/22/2024 Generated for Imani Royal/Kushal on: 1 03:55 PM EDT
--- OUTSIDE RECORDS SUMMARY | 2024-09-04 10:45 | XMS_ITS ---
Author Organization [facility] Address [address] [place] [address] Care Team Providers Care Equipment Coordinator Name Role Phone Phuc Alvarez Primary Care Provider Vilma Torres [phone] Champion Encounters Encounter Location Date Provider Diagnosis [address] [address] 09/04/2024 Vilma Mcqueen Plan Of Treatment Next Appt Details Provider Name:Barbara morrison, 03/07/2025 02:30:00 PM, [address] [place] [address], [phone], Provider Name:Barbara morrison, 05/16/2025 02:30:00 PM, [address] [place] [address], [phone], Progress Notes * Konrad JUDGEDOB:1950 ([age] yo M)Acc No.[id number]:09/04/2024 Progress Note Patient: Konrad MERIDA Provider: Sander Mcqueen DPM :1950 A ge:73 Y S ex:Male Date:09/04/2024 Address:[address] [facility], [address], [place], [place] Pcp:Phuc Alvarez Subjective: * Chief Complaints: * [...] * Provider: Sander Mcqueen DPM Date: 0 09/04/2024 Generated for Imani goldberg/Ronel/Kushal on: 1 03:54 PM EDT
--- OUTSIDE RECORDS SUMMARY | 2024-11-14 07:30 | XMS_ITS ---
Author Organization [facility] Address [address] [place] [address] Care Team Providers Care Host Name Role Phone Phuc Alvarez Primary Care Provider Vilma Torres [phone] Encounters Encounter Location Date Provider Diagnosis [address] [address] 11/14/2024 Vilma Mcqueen Plan Of Treatment Next Appt Details Provider Name:Barbara Pino prince, 03/07/2025 02:30:00 PM, [address] [place] [address], [phone], Provider Name:Barbara Pino prince, 05/16/2025 02:30:00 PM, [address] [place] [address], [phone], Progress Notes * Konrad VARELADOB:1950 ([age] yo M)Acc No.[id number]:11/14/2024 Progress Note Patient: Konrad MERIDA Provider: Sander Mcqueen DPM :1950 A ge:73 Y S ex:Male Date:11/14/2024 Address:[address] [place] [address], [address], [place], [place] Pcp:Phuc Alvarez Subjective: * Chief Complaints: * * Medical History: Objective: * Vitals: Assessment: Plan: * Treatment: * Images: * The named appointment provid er may or may not be the originator of this progress note, and it is not deemed complete until electronically signed by the appointment provider. Sign off status: Pending * Provider: Sander Mcqueen DPM Date: 0 11/14/2024 Generated for Imani goldberg/Ronel/Kushal on: 1 03:55 PM EDT
--- NOTE | 2025-02-01 13:29 | MHC.PC.OV ---
Vital Signs 02/01/25 13:30 Height 5 ft 11 in Weight 210 lb 8 oz BMI 29.4 BP 132/60 Blood Pressure Location Lt brachial Position Sitting Pulse 70 Pulse Source Pulse Oximeter Temp 97.1 F Temp Source Temporal Artery Scan Pulse Oximetry (%) 98 Oxygen Delivery Method Room Air Intake Visit Reasons: PE- see comments Intake Note: Patient is here today for a physical. 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 Coating Engineer: Not Required per policy Accompanied by: Self / Same As Patient Allergies azithromycin (AZITHROMYCIN) Allergy (Intermediate, Verified 02/01/25 13:30) Unknown divalproex sodium (From Depakote) Allergy (Unknown, Verified 02/01/25 13:30) Hair loss erythromycin base (ERYTHROMYCIN BASE) Allergy (Unknown, Verified 02/01/25 13:30) Anaphylaxis lithium Allergy (Unknown, Verified 02/01/25 13:30) Thyroid disorder trazodone Allergy (Unknown, Verified 02/01/25 13:30) priapism atorvastatin Adverse Reaction (Intermediate, Verified 02/01/25 13:30) myalgia lisinopril Adverse Reaction (Intermediate, Verified 02/01/25 13:30) Cough Medication List - Last Reconciled 02/01/25 by Phuc Alvarez, acetaminophen 500 mg PO Q6H PRN acyclovir 400 mg PO TID 7 days albuterol sulfate 90 mcg/actuation (ProAir HFA) 2 puffs inhalation QID PRN alprazolam (Xanax) 0.25 mg PO BEDTIME PRN aspirin 81 mg PO DAILY 90 days [BED WEDGE As directed] blood pressure monitor (Blood Pressure Kit) As directed cetirizine 10 mg PO DAILY cholecalciferol (vitamin D3) 50 mcg PO DAILY diphenhydramine HCl (Banophen) 50 mg PO BEDTIME docusate sodium 200 mg (2 x 100 mg) PO TID ezetimibe 10 mg PO DAILY ferrous sulfate (FeroSul) 325 mg PO .QD fexofenadine 180 mg PO DAILY fluticasone propion-salmeterol 250-50 mcg/dose (Advair Diskus) 1 inh inhalation BID 90 days hydrochlorothiazide 12.5 mg PO QAM levothyroxine 125 mcg PO QAM losartan 50 mg PO DAILY melatonin 3 mg PO BEDTIME PRN mometasone 50 mcg/actuation (Nasonex 24hr Allergy) 2 sprays intranasal DAILY PRN bidrmzinlava-goqkauvj-gxiznf 1 tab PO DAILY olopatadine 0.1% 1 drp ophthalmic (eye) BID omeprazole 20 mg PO DAILY psyllium husk (Reguloid (psyllium husk)) 0.8 grams (2 x 0.4 gram) PO QID PRN 30 days rosuvastatin 40 mg PO DAILY 90 days sennosides-docusate sodium 8.6-50 mg (Senna Plus) 4 tabs PO BEDTIME Shower Chair As directed sildenafil 100 mg PO DAILY PRN tramadol 50 mg PO TID PRN 90 days Tobacco use date assessed: 02/01/25 Fall risk assessment: No Falls in past year Last assessed Fall Risk: 02/01/25 Dental Screening Dental Screen Date: 05/17/24 HPI PE- see comments HPI Details FIT test negative. doing keto diet PFSH Medical History (Updated 02/01/25 @ 14:36 by Phuc Alvarez MD) Cataracts, bilateral Hypersomnia COPD (chronic obstructive pulmonary disease) Personal history of nicotine dependence Allergic rhinitis Cervical spine fracture GERD (gastroesophageal reflux disease) Pulmonary nodule Vitamin D deficiency Obesity (BMI 30-39.9) Hypothyroid Bipolar disorder PTSD (post-traumatic stress disorder) Coronary artery disease Impaired glucose tolerance Hypercholesterolemia Anemia Hypertension Surgical History (Updated 02/01/25 @ 13:36 by WDAE Darden) History of right cataract surgery Hx of left cataract extraction (07/09/24) History of cervical spinal surgery History of surgery H/O nasal polyp History of surgery on arm History of tooth extraction Family History Father CAD (coronary artery disease) Myocardial infarction CVD (cardiovascular disease) Mother No problems noted. Brother In good health Sister In good health Maternal Aunt Lung cancer Social History (Updated 02/01/25 @ 14:25 by Phuc Alvarez MD) Housing: Apartment Are you a primary rn homecare to a significant other at home: No Do you presently have visiting nurse or other home services: No Alcohol intake: current Alcohol intake frequency: a few times a week Comment: once a week 1 drink Patient Tobacco Use Status: Former Tobacco user Tobacco use type: Cigarette e-Cigarette/Vaping Use: Never Used Second Hand Smoke Exposure: Yes service: Yes Current occupational status: retired Cognitive needs: No Hearing needs: No Vision needs: Yes Questionnaire Thrive Questionnaire Date Thrive assessed: 08/29/24 I am a: Patient What is your living situation today?: I have a steady place to live Within the past 12 months, did the food you bought not last and you didn't have the money to get more?: Never true Within the past 12 months, did you worry whether your food would run out before you got money to buy more?: Never true Do you have trouble paying for medicines?: No Do you have trouble getting transportation to medical appointments?: No Do you have trouble paying your heating and electricity bill?: No Do you have trouble taking care of your child, family member or friend?: No Do you have trouble with day-to-day activities such as bathing, preparing meals, shopping, managing finances, etc.?: No Are you currently unemployed and looking for a job?: No Are you interested in more education?: No Please select the resources that you would like help with: None Currently or been in a relationship where the following occur: No concerns reported THRIVE Score: 0 DEEPA-7 AMB Questionnaire DEEPA-7 Date DEEPA - 7 assessed: 05/17/24 Source: Developed by Drs. Olman Albert, Ruby Garcia, Kunal Mcclendon and colleagues, with an educational jae from [employer]. Review of Systems Const Denies poor appetite and Denies weakness Eyes Denies no additional complaints ENT Reports Normal hearing present, Denies dizziness, Denies nasal congestion, Denies tinnitus and Denies sore throat Card Denies chest pain, Denies syncope, Denies rapid heart rate and Denies dyspnea Resp Denies cough and Denies dyspnea GI Denies change in stool character, Reports constipation, Denies diarrhea, Denies nausea and Denies vomiting Denies dysuria and Denies urinary frequency Neuro Reports Normal hearing present, Denies confusion, Denies dizziness, Denies syncope and Denies weakness Psych Denies confusion Physical exam (Primary Care) Vital Signs: Last Vital Signs Temp 97.1 F 02/01/25 13:30 Pulse 70 02/01/25 13:30 BP 132/60 02/01/25 13:30 Pulse Ox 98 02/01/25 13:30 Oxygen Delivery Method Room Air 02/01/25 13:30 BMI result Body Mass Index 29.4 Tobacco/Smoking Status: Tobacco use Status Tobacco use date assessed 02/01/25 02/01/25 13:39 Patient Tobacco Use Status Former Tobacco user 02/01/25 14:25 Tobacco use type Cigarette 02/01/25 14:25 e-Cigarette/Vaping Use Never Used 02/01/25 14:25 Thrive Assessment: Date of Thrive Assessment Date Thrive assessed 08/29/24 02/01/25 13:39 Currently or been in a relationship where the following occur: No concerns reported Const General: No confusion Orientation/consciousness: No confusion HENMT Head: Yes normocephalic Ears: external ears normal and TM's normal bilaterally Face and sinus: Yes normal facial exam Mouth: moist mucous membranes Throat: Yes tonsils normal Eyes Conjunctivae: conjunctivae normal Pupils: Equal, round and reactive pupils present and Pupil accommodation reflex normal Direct Ophthalmoscopy: normal light reflex Neck Neck: No lymphadenopathy Thyroid: Thyroid normal Chest Chest palpation & inspection: normal inspection of the chest Resp Effort & Inspection: normal respiratory effort and no audible wheezes Auscultation: clear to auscultation bilaterally, no crackles, no wheezes and lung sounds not diminished Cardio Rate: regular rate Rhythm: regular rhythm Peripheral pulses: radial pulses present and dorsalis pedis present GI Palpation (GI): no masses Auscultation: normal bowel sounds and normoactive bowel sounds Rectal Exam - Male: Yes deferred Skin General skin exam: no rashes or lesions noted Rashes: no rashes Neuro General: No confusion Cranial nerves: Yes Equal, round and reactive pupils present and Yes Normal hearing present Cognition (Neuro): normal cognition Gait exam (Neuro): Normal gait present Motor exam (neuro): 5/5 motor strength present throughout Deep tendon reflexes (DTR's): Right brachioradialis reflex intensity grade: 2+, Left brachioradialis reflex intensity grade: 2+, Right patellar reflex intensity grade: 2+ and Left patellar reflex intensity grade: 2+ Extrem General: No edema Coding Level of Care Code Est Pt Prev Care >65y(97698) Diagnoses Annual physical exam Z00.00 Pulmonary emphysema, unspecified emphysema type J43.9 COPD type: emphysema Emphysema type: unspecified Gastroesophageal reflux disease without esophagitis K21.9 Esophagitis presence: without esophagitis Colon cancer screening Z12.11 Acquired hypothyroidism E03.9 Hypothyroidism type: acquired Impaired glucose tolerance R73.02 Essential hypertension I10 Hypertension type: essential hypertension Coronary artery disease involving [place] coronary artery of [place] heart without angina pectoris I25.10 Associated angina: without angina Coronary Disease-Associated Artery/Lesion type: [place] artery [place] vs. transplanted heart: [place] heart Hypercholesterolemia E78.00 Bipolar disorder, current episode mixed, mild F31.61 Active/Remission status: currently active Current bipolar episode type: mixed Current episode severity: mild Overweight (BMI 25.0-29.9) E66.3 Assessment & Plan Assessment & Plan (1) Annual physical exam: Code(s): Z00.00 - Encounter for general adult medical examination without abnormal findings Category: Medical Plan: Patient is advised to eat healthy, keep well hydrated, keep active and have adequate sleep. (2) COPD (chronic obstructive pulmonary disease): Comment: At present he is relatively asymptomatic but his pulmonary function test, has shown mild to moderate degree of COPD with good response to bronchodilator therapy. Currently he is asymptomatic. [place] : Advised to use Advair 250-50 one inh BID only PRN , if the cough or wheezing starts . Does not have to use on regular basis Code(s): J44.9 - Chronic obstructive pulmonary disease, unspecified Category: Medical Qualifiers: COPD type: emphysema Emphysema type: unspecified Qualified Code(s): J43.9 - Emphysema, unspecified Plan: On albuterol as needed as well as Advair for controller (3) GERD (gastroesophageal reflux disease): Code(s): K21.9 - Gastro-esophageal reflux disease without esophagitis Category: Medical Qualifiers: Esophagitis presence: without esophagitis Qualified Code(s): K21.9 - Gastro-esophageal reflux disease without esophagitis Plan: Avoid the foods that causes that usually spicy foods, tomato products, juices, coffee, soda and foods that your sensitive to. After eating do not lie down, allow 3-4 hours before in lie down. And keep the head of bed above 30 degrees to avoid the acid from going up. (4) Colon cancer screening: Code(s): Z12.11 - Encounter for screening for malignant neoplasm of colon Category: Medical Plan: Patient is reminded about colonoscopy (5) Hypothyroid: Code(s): E03.9 - Hypothyroidism, unspecified Category: Medical Qualifiers: Hypothyroidism type: acquired Qualified Code(s): E03.9 - Hypothyroidism, unspecified Plan: Continue with thyroid medication (6) Impaired glucose tolerance: Code(s): R73.02 - Impaired glucose tolerance (oral) Category: Medical Plan: Decrease the amount of carbohydrate intake, pasta, bread, rice and potatoes are all sugar and that is aside from all the sweet stuff, remember that fruits are good but they are Sweet also. (7) Hypertension: Code(s): I10 - Essential (primary) hypertension Category: Medical Qualifiers: Hypertension type: essential hypertension Qualified Code(s): I10 - Essential (primary) hypertension Plan: Continue with blood pressure medication. Decrease salt intake and exercise patient takes losartan 50 mg once a day hydrochlorothiazide 12.5 mg once a day (8) Coronary artery disease: Comment: Noted on CT scan 04/2024 Code(s): I25.10 - Atherosclerotic heart disease of [place] coronary artery without angina pectoris Category: Medical Qualifiers: Associated angina: without angina Coronary Disease-Associated Artery/Lesion type: [place] artery [place] vs. transplanted heart: [place] heart Qualified Code(s): I25.10 - Atherosclerotic heart disease of [place] coronary artery without angina pectoris Plan: Control the cholesterol, weight, blood pressure, patient on aspirin (9) Hypercholesterolemia: Code(s): E78.00 - Pure hypercholesterolemia, unspecified Category: Medical Plan: Avoid fried foods, chicken skin, eggs, butter margarine, pastries and meat. Be it pork or beef they have a lot of cholesterol LDL goal of less than 70 and triglyceride of less than 150 on Zetia and rosuvastatin 40 mg once a day (10) Bipolar disorder: Code(s): F31.9 - Bipolar disorder, unspecified Category: Medical Qualifiers: Active/Remission status: currently active Current bipolar episode type: mixed Current episode severity: mild Qualified Code(s): F31.61 - Bipolar disorder, current episode mixed, mild Plan: Continue with present therapy (11) Overweight (BMI 25.0-29.9): Code(s): E66.3 - Overweight Category: Medical Plan History of Present Illness The patient is a 74-year-old male presenting for an annual physical examination and wellness visit. The patient has a history of Gastroesophageal Reflux Disease (GERD), which has been managed with lifestyle modifications and medications. He reports frequent heartburn, especially after consuming certain foods, and takes calcium pills to manage symptoms, although they cause upset stomach. The patient has Chronic Obstructive Pulmonary Disease (COPD) diagnosed in 2007, for which he uses albuterol as needed and Advair as a controller medication. He has a history of smoking but has since quit, which has positively impacted his respiratory health. The patient has impaired glucose tolerance with a fasting blood sugar of 123 mg/dL, although his hemoglobin A1c remains normal. He follows a keto diet to manage his weight and glucose levels, but has recently experienced a plateau in weight loss. The patient has a history of hypothyroidism, hypercholesterolemia, hypertension, and coronary artery disease, all of which are managed with medications including losartan, hydrochlorothiazide, and rosuvastatin. His LDL cholesterol is well-controlled at 52 mg/dL, and he continues with his current therapy. The patient has a history of bipolar disorder, which is managed with psychiatric care. Recent blood work indicates anemia and chronic leukopenia, with macrocytic anemia noted. Liver function tests are elevated, a finding consistent with previous results. The patient underwent cataract surgery in June, which has resulted in improved vision without the need for corrective lenses. The patient reports ear wax accumulation, which may require [id number] treatment or professional cleaning if not resolved. Health Maintenance - Vaccinations: Received flu and COVID-19 booster on January 11 - Colon cancer screening: Stool test (FIT) planned, Cologuard test discussed - Eye care: Post-cataract surgery follow-up and management Social History - Substance Use: Former smoker, currently abstains from smoking - Alcohol Use: Consumes alcohol rarely, approximately once a week - Diet: Follows a keto diet, consuming low carbohydrates - Physical Activity: Engages in walking, aiming for 4,000 steps daily Review of Systems - General: Reports weight gain of 7 pounds over a week - Respiratory: Reports cough, denies dyspnea - Cardiovascular: Denies chest pain, palpitations, or syncope - Gastrointestinal: Reports frequent heartburn, denies nausea or vomiting - Genitourinary: Reports nocturia, waking twice at night to urinate - Neurological: Denies dizziness or headaches - Musculoskeletal: Reports mild back and knee discomfort, improving with weight loss - Endocrine: Reports low testosterone levels - Ophthalmologic: Reports improved vision post-cataract surgery Physical Exam General: Cooperative, healthy appearing, comfortable, no acute distress and well developed Orientation: Patient oriented x3 Limitations: No limitations Head: Normal to inspection Ears: Hearing grossly normal bilaterally, but a lot of ear wax noted Nose: Normal external nose present Face and sinus: Normal facial exam Eyes: Appearance normal, both eyes and all related structures, post-cataract surgery with perfect vision Neck: Normal visual inspection and Yes full ROM Respiratory: Normal respiratory effort and able to speak in complete sentences. Clear to auscultation bilaterally Cardiovascular: Regular rate and rhythm. Normal S1 and S2 GI: Normal to inspection. Soft to palpation and nontender, small umbilical hernia noted Skin: No rashes or lesions noted, small lumps on hand noted Neuro: Patient oriented x3 Extremities: Normal to inspection Results - Labs: Anemia, chronic leukopenia, macrocytic anemia, elevated liver function tests, low testosterone - Cholesterol: LDL 52 mg/dL, triglycerides 74 mg/dL - Blood Sugar: Fasting blood sugar 123 mg/dL, normal hemoglobin A1c Plan Patient was informed and verbally consented to the use of an ambient scribe for clinic note documentation during this visit. 1. Gastroesophageal Reflux Disease (Gerd) The patient is advised to continue lifestyle modifications and medications to manage GERD symptoms. Calcium pills are used to manage heartburn, though they cause upset stomach. 2. Chronic Obstructive Pulmonary Disease (Copd) The patient is instructed to continue using albuterol as needed and Advair as a controller medication for COPD management. 3. Impaired Glucose Tolerance The patient is advised to maintain a keto diet to manage glucose levels and weight. Regular monitoring of blood sugar levels is recommended. 4. Hypothyroidism The patient is advised to continue current thyroid medication. 5. Hypercholesterolemia The patient is advised to continue current cholesterol management therapy, including rosuvastatin. 6. Hypertension The patient is advised to continue current antihypertensive medications, including losartan and hydrochlorothiazide. 7. Coronary Artery Disease The patient is advised to continue current management for coronary artery disease. 8. Bipolar Disorder The patient is advised to continue psychiatric care for bipolar disorder management. 9. Anemia The patient is advised to monitor anemia and follow up with regular blood work. 10. Chronic Leukopenia The patient is advised to monitor leukopenia and follow up with regular blood work. 11. Macrocytic Anemia The patient is advised to monitor macrocytic anemia and follow up with regular blood work. 12. Elevated Liver Function Tests The patient is advised to monitor liver function tests and follow up with regular blood work. 13. Low Testosterone The patient is advised to monitor testosterone levels, though no treatment is recommended at this time. 14. Weight Gain The patient is advised to continue with dietary management and consider pharmaceutical options for weight management. 15. Preventative Care: Colon Cancer Screening With Stool Test The patient is advised to complete the stool test for colon cancer screening. 16. Cataract Surgery (Post-Operative) The patient is advised to follow up with eye care post-cataract surgery. 17. Ear Wax Accumulation The patient is advised to use kjvj-jjo-dyjrhuk treatments for ear wax removal or seek professional cleaning if necessary. Discussion Notes During the visit, we discussed the management of the patient's chronic conditions, including GERD, COPD, and impaired glucose tolerance. We reviewed the importance of continuing current medications and lifestyle modifications to manage these conditions effectively. The patient was informed about the need for regular monitoring of blood work, particularly for anemia, leukopenia, and liver function tests. We also discussed the patient's recent cataract surgery and the importance of follow-up care. Preventative care measures, including vaccinations and colon cancer screening, were emphasized. Patient Instructions - Continue current medications for GERD, COPD, hypertension, and cholesterol management. - Follow a keto diet and monitor blood sugar levels regularly. - Use xyoh-xwm-[id number] treatments for ear wax removal or seek professional cleaning if necessary. - Complete the stool test for colon cancer screening as planned. - Schedule follow-up appointments for regular blood work and eye care post-cataract surgery. Medications: New olopatadine 0.1% separate doses by at least 6-8 hours 1 drp ophthalmic (eye) BID 5 mL 5RF Z12.11 - Encounter for screening for malignant neoplasm of colon tirzepatide (weight loss) (Zepbound) for 4 weeks 2.5 mg (0.5 mL) subcut QWEEK 2 mL 1RF E66.3 - Overweight fexofenadine 180 mg PO DAILY 30 tabs 5RF Z12.11 - Encounter for screening for malignant neoplasm of colon
[2025-02-01 13:30] VITALS: BP 132/60; PULSE 70; TEMP 36.2; O2SAT 98; BMI 29.4
--- OUTSIDE RECORDS SUMMARY | 2025-02-01 15:55 | XMS_ITS | Clinical Summary ---
Author Organization [facility] Address [address] [place] [address] Care Team Providers Care Gum Dipper Name Role Phone Unavailable Primary Care Provider [...]
--- OUTSIDE RECORDS SUMMARY | 2025-02-01 15:55 | XMS_ITS | Patient Health Record ---
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 Name Role Phone Phuc Alvarez Primary Care Provider Vilma Torres Unavailable [phone] Barbara Rubi Unavailable [phone] Allergies Allergen (clinical drug ingredient) Drug/Non Drug [...] Polyneuropathy due to diabetes mellitus type I (720738779) Type 1 diabetes mellitus with diabetic polyneuropathy (E10.42) Active confirmed Problem Polyneuropathy due to type 2 diabetes mellitus (520154131) Type 2 diabetes mellitus with diabetic polyneuropathy (E11.42) Active confirmed Problem Bilateral atherosclerosis of arteries of lower limbs (disorder) (15372380999133945 ) Unspecified atherosclerosis of [place] arteries of extremities, bilateral legs (I70.203) Active confirmed Vital Signs Blood pressure diastolic 60 mm Hg 12/24/2024 Height 5ft 11in in 12/24/2024 Blood pressure systolic 110 mm Hg 12/24/2024 Weight 198 lbs 12/24/2024 BMI 27.61 kg/m2 12/24/2024 Procedures Procedure Date Ordered Date Performed Result Body Sit e 15062-LVWMGNK NAIL, 6 OR MORE 03/22/2024 N/A 75235-FGIS SKIN LESIONS, 2 TO 4 03/22/2024 N/A Encounters Encounter Location Date Provider [facility] [address] 03/22/2024 Barbara Rubi Tinea unguium B35.1 ; Type 2 diabetes mellitus with diabetic polyneuropathy E11.42 and Unspecified atherosclerosis of [place] arteries of extremities, bilateral legs I70. [facility] [address] 06/05/2024 Vilma Mcqueen Type 2 diabetes mellitus with diabetic polyneuropathy E11.42 ; Tinea pedis of both feet B35.3 ; Tinea unguium B35.1 and Unspecified atherosclerosis of [place] arteries of extremities, bilateral legs I70. [facility] [place] [address] [address] 10/05/2024 Barbara Rubi Type 2 diabetes mellitus with diabetic polyneuropathy E11.42 ; Tinea pedis of both feet B35.3 ; Tinea unguium B35.1 and Unspecified atherosclerosis of [place] arteries of extremities, bilateral legs I70.[address] [address] 12/24/2024 Barbara Rubi Type 2 diabetes mellitus with diabetic polyneuropathy E11.42 ; Tinea unguium B35.1 and Unspecified atherosclerosis of [place] arteries of extremities, bilateral legs I70.[address] [address] 06/12/2024 Vilma Mcqueen [address] [address] 08/31/2024 Vilma Mcqueen [address] [address] 12/24/2024 Vilma Mcqueen Assessments Encounter Date Diagnosis [...] (ICD-10 - B35.1) 12/24/2024 Unspecified atherosclerosis of [place] arteries of extremities, bilateral legs (ICD-10 - I70.203) 06/05/2024 Tinea unguium (ICD-10 - B35.1) 10/05/2024 Tinea unguium (ICD-10 - B35.1) 03/22/2024 Unspecified atherosclerosis of [place] arteries of extremities, bilateral legs (ICD-10 - I70.203) 06/05/2024 Unspecified atherosclerosis of [place] arteries of extremities, bilateral legs (ICD-10 - I70.203) 10/05/2024 Unspecified atherosclerosis of [place] arteries of extremities, bilateral legs (ICD-10 - I70.203) Plan Of Treatment Pending Test Test Name Order Date 68059-HMNUQJF NAIL, 6 OR MORE 03/22/2024 87867-HWOB SKIN LESIONS, 2 TO 4 03/22/20 59735-IPMF SKIN LESIONS, 2 TO 4 06/15/19 55347-TPLZ SKIN LESIONS, 2 TO 4 09/10/19 Next Appt Details Provider Name:Barbara Pino prince, 03/07/2025 02:30:00 PM, [address] [place] [address], [phone], Provider Name:Barbara Pino prince, 05/16/2025 02:30:00 PM, [address] [place] [address], [phone], Insurance Providers Payer Name Payer Address Payer Phone Subscriber Number Group Number Insured Name Patient Relationship to Insured Coverage Start Date Coverage End Date [facility] Claims [address] [place] [id number] Konrad Varela Self - patient is the insured Medical (General) History Medical History History ICD Code Back,Hip,and Knee pain Broken bones CAD (Cholesterol) Cataracts High blood pressure Reflux ( GERD) thyroid Measles Mumps Chicken pox Joint implants/screws atrial sclerosis Surgical History Surgery Date(Month/Year) neck surgery 2019? nose 2001 cataract surgery 2024
--- OUTSIDE RECORDS SUMMARY | 2025-02-01 15:55 | XMS_ITS | Patient Health Record ---
Author Organization [facility] Address [address] [place] [address] Care Team Providers Care Db2 Dba Name Role Phone Phuc Alvarez MD Primary Care Provider Prabhu Skinner Jr Unavailable [phone] Allergies Allergen (clinical drug ingredient) Drug/Non [...] at 5:00 p.m. the day before the procedure; Duration: 1 day 06/21/2019 Active traMADol HCl 50 MG 1 tablet on the tongue and allow to dissolve as needed Orally every 6 hrs Active Omeprazole 20 MG 1 capsule Orally Onc e a day Active Banophen 50 MG 1 capsule at bedtime as needed Orally Once a day; Duration: 30 day(s) Active Levothyroxine Sodium 125 MCG 1 tablet on an empty stomach in the morning Orally Once a day Active Cerovite Jr - as directed Orally once a day Active Lisinopril 40 MG 1 tablet Orally Once a day Active Ezetimibe 10 MG 1 tablet Orally Once a day; Duration: 30 day(s) Active ALPRAZolam 0.25 MG 1 tablet Orally Twic e a day Active hydroCHLOROthiazide 12.5 MG 1 capsule in the morning Orally Once a day; Duration: 30 day(s) Active Cetirizine HCl 10 MG [...] Once a day; Duration: 30 day(s) Active Senexon-S 8.6-50 MG 1 tablet in the evening as needed Orally Once a day Active Docusate Sodium 100 MG 1 capsule as need ed Orally Once a day Active Immunizations Vaccine Route Administration Date Status Comme nts Influenza Unknown 12/17/2018 Administered Problems Problem Type SNOMED Code ICD Code Onset Dates Problem Status W/U Status Risk Notes Problem Colon cancer screening (023426774) Colon cancer screening (Z12.11) Active confirmed Problem Slow transit constipation (47661827) Slow transit constipation (K59.01) Active confirmed Problem Gastroesophageal reflux disease without esophagitis (797132576) Gastroesophageal reflux disease without esophagitis (K21.9) Active confirmed Plan Of Treatment Future Test Test Name Order Date COLONOSCOPY 07/26/2013 COLONOSCOPY 06/21/2019 Insurance Providers Payer Name Payer Address Payer Phone Subscriber Number Group Number Insured Name Patient Relationship to Insured Coverage Start Date Coverage End Date [facility] [address] [place] [address] [id number] ZENA JUDGE Self - patient is the insured Medical (General) History Medical History History ICD Code PTSD hypothyroid seasonal allergic rhinitis BPH aortiic scoliosis microscopic nodules under 2mm and 5 mm i n lungs. hypertension Surgical History Surgery Date(Month/Year) neck surgery removed nasal polyp-right surgery on penis prostae bph
== END 2025-02-01 14:50 | disposition home or self-care (01) ==
LOC: HO.HMCH 13:16
PROVIDERS: PCP Internal Medicine; Visit Provider Internal Medicine
DX: Z00.00 Encounter for general adult medical examination without abnormal findings (principal); F31.61 Bipolar disorder, current episode mixed, mild; J43.9 Emphysema, unspecified; E66.3 Overweight; Z68.29 Body mass index [BMI] 29.0-29.9, adult; K21.9 Gastro-esophageal reflux disease without esophagitis; Z12.11 Encounter for screening for malignant neoplasm of colon; I10 Essential (primary) hypertension; E03.9 Hypothyroidism, unspecified; R73.02 Impaired glucose tolerance (oral); I25.10 Atherosclerotic heart disease of native coronary artery without angina pectoris; E78.00 Pure hypercholesterolemia, unspecified

== ENCOUNTER → 2025-02-01 13:15 | Outpatient (BNVA) | payer OTHER, SELFPAY | PROVIDERS: PCP Internal Medicine; Visit Provider Internal Medicine | DX: Z00.00 Encounter for general adult medical examination without abnormal findings (principal); J43.9 Emphysema, unspecified; K21.9 Gastro-esophageal reflux disease without esophagitis; E03.9 Hypothyroidism, unspecified; R73.02 Impaired glucose tolerance (oral); I10 Essential (primary) hypertension; I25.10 Atherosclerotic heart disease of native coronary artery without angina pectoris; E78.00 Pure hypercholesterolemia, unspecified; F31.61 Bipolar disorder, current episode mixed, mild; E66.3 Overweight; D64.9 Anemia, unspecified; D72.819 Decreased white blood cell count, unspecified; R79.89 Other specified abnormal findings of blood chemistry; Z68.29 Body mass index [BMI] 29.0-29.9, adult | CPT/HCPCS: 99397 ==